=== PATIENT | female | born 1945 | race Caucasian/White ===

== ENCOUNTER → 2017-09-09 | Outpatient (CLI) | payer MEDICARE ==
[~2017-09-09] MED LIST: ALBUTEROL2.5 MG/3 M NEB; ASPIR 8181 MG PO; CATAPRES0.1 MG PO; CLONIDINE HCL0.1 MG PO; COZAAR25 MG PO; DOXYCYCLINE HY100 MG PO; HYDROCODONE PO; IPRATROPIU0.2 MG/1 M NEB; LISINOPRIL10 MG PO; LOPRESSOR25 MG PO; NORVASC5 MG PO; PRAVASTATIN SOD20 MG PO; PREDNISONE20 MG PO; PRINIVIL20 MG PO; SYMBICORT 16010.2 GM INH; TYLENOL WITH C1 EACH PO; [UNRECOGNIZED DRUG - CODE] TP
[2017-09-10 09:09] LABS: ABG HCO3 28 mmol/L (23-28); ABG PCO2 43 mmHg (41-51); ABG PO2 61 mmHg (80-105)
--- NOTE | 2017-09-11 14:11 | Diagnostic Imaging Report ---
TECHNIQUE: Magnetic resonance imaging of the RIGHT HIP was performed WITHOUT injected contrast. HISTORY: Right hip pain, evaluate for osteonecrosis COMPARISON: None available. 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 No collapse. Bone marrow edema extending into the intertrochanteric region. Femoroacetabular Joint: Joint effusion. Acetabular labrum: Fraying of the anterior and superior labrum without detachment. Articular Cartilage: Diffuse partial thickness cartilage loss. Muscle and tendons: The visualized tendons appear intact. Soft tissues: Otherwise unremarkable. 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 Mild degenerative arthrosis of the hip. Joint effusion. Signed by: Dr. Benjamin German M.D. on 09/11/2017 2:08 PM
--- NOTE | 2017-09-13 23:38 | Pulmonary Function Test ---
DATE OF STUDY: PULMONARY FUNCTION REPORT Patient of [facility], Dr. Ruffin, Dr. Damon. INDICATIONS: Very severe obstructive pulmonary disease. Forced vital capacity 0.67 L, 20% of predicted. FEV1 0.33 L, 13%. FEV1/FVC ratio of 50%. FEF 25-75 9% consistent with very severe obstructive pulmonary pattern. There is significant improvement following inhalation of bronchodilators, 25% FVC to 0.83 L and 15% FEV1 to 0.39 L. Lung volumes are reduced. Total lung capacity 4.86 L, 20% of predicted. Total lung capacity is increased to 7.66 L, 137% of predicted. These findings are consistent with very severe obstructive pulmonary disease with significant improvement following inhalation of bronchodilators. Hyperinflation is noted and significantly decreased diffusion capacity. Patient increased surgical risk. Arterial blood gases revealed pH 7.4, pCO2 43, PaO2 61. Normal acid-base status. Increased AA gradient. Job#: [id number]
== END ==
LOC: MRI 08:26
PROVIDERS: ATTEND Specialist
DX: M87.151 Osteonecrosis due to drugs, right femur (principal)
CPT/HCPCS: 36415; 82805; 94060; 94727; 94729

== ENCOUNTER 2017-10-13 08:50 | Inpatient (IN) | payer MEDICARE ==
[2017-10-12 14:03] LABS: BASOPHILS # (AUTO) 0.1 (0.0-0.1); BASOPHILS % 0.8 % (0.0-1.0); EOSINOPHILS # (AUTO) 0.1 (0.0-0.4); EOSINOPHILS % 1.6 % (0.0-6.0); HEMATOCRIT 38.1 % (34.2-44.1); HEMOGLOBIN 12.4 g/dL (12.0-16.0); LYMPHOCYTES # (AUTO) 1.4 (1.0-3.2); LYMPHOCYTES % 19.4 % (18.0-39.1); MEAN CORPUSCULAR HEMOGLOBIN 30.2 pg (28-32); MEAN CORPUSCULAR HGB CONC 32.5 g/dL (31-35); MEAN CORPUSCULAR VOLUME 92.9 fL (81-99); MONOCYTES # (AUTO) 0.4 (0.2-0.8); MONOCYTES % 4.9 % (4.4-11.3); NEUTROPHILS # (AUTO) 5.4 (2.1-6.9); NEUTROPHILS % 72.8 % (38.7-80.0); PLATELET COUNT 283 x10e3/uL (140-360); RED CELL DISTRIBUTION WIDTH 15.7 % (11.7-14.4)
[~2017-10-13] VITALS: Ht 170.2 cm; Wt 70.4 kg
[~2017-10-13 08:50] MED LIST changes: +AMLODIPINE BESYL5 MG PO; +CEFAZOLIN SOD 2 GM/D5W 50ML 50 ML IV ONE; +CELECOXIB 200 MG CAP ONE; +DEXAMETHASONE SOD PHOS 10 MG/1 ML VIAL ONE; +GABAPENTIN 300 MG CAP ONE; +LOSARTAN POTASS25 MG PO
--- OUTSIDE RECORDS SUMMARY | 2017-10-13 08:53 | XMS REPORT | Clinical Summary ---
Author Author [facility] Address Unknown Phone Unavailable Care Team Providers Care Executive Director Name Role Phone Cam Crenshaw MD PCP Allergies Active Allergy Reactions Severity Noted Date Comments Sulfamethoxazole-Trimetho Swelling High 09/13/2014 prim Current Medications Prescription Sig. Disp. Refills Start End Date Status Date pravastatin (PRAVACHOL) Take 20 mg by mouth Active 20 MG tablet nightly. hydroCHLOROthiazide Take 12.5 mg by mouth Active (HYDRODIURIL) 12.5 MG nightly. tablet aspirin (ECOTRIN) 81 MG Take 81 mg by mouth Active enteric coated tablet daily. guaiFENesin (MUCINEX) 600 Use twice a day per 09/05/19 Active mg tablet extended package instructions as 17 release 12hr needed. Is over the counter fluticasone-vilanterol Inhale 1 inhalations once 28 each 1 09/05/19 Active (BREO ELLIPTA) 200-25 daily. 17 mcg/dose blister with device powder for inhalation Active Problems Problem Noted Date COPD exacerbation 09/05/2016 Essential hypertension 09/05/2016 Acute respiratory distress 08/30/2016 Encounters Date Type Specialty Care Team Description 10/29/2016 Emergency Emergency Medicine Edward Cordon, COPD exacerbation - DO (Primary Dx) 10/30/2016 after 10/12/2016 Social History Tobacco Use Types Packs/Day Years Used Date Former Smoker Alcohol Use Drinks/Week oz/Week Comments No Sex Assigned at Date Recorded Not on file Last Filed Vital Signs Vital Sign Reading Time Taken Blood Pressure 139/85 10/30/2016 2:45 AM CDT Pulse 74 10/30/2016 2:45 AM CDT Temperature 36.3 C (97.4 F) 10/29/2016 9:48 PM CDT Respiratory Rate 18 10/30/2016 2:45 AM CDT Oxygen Saturation 94% 10/30/2016 2:45 AM CDT Inhaled Oxygen - - Concentration Weight - - Height 171.5 cm (5' 7.5") 10/29/2016 9:48 PM CDT Body Mass Index - - Plan of Treatment Health Maintenance Due Date Last Done Comments COLONOSCOPY 1997 MAMMOGRAM 1997 ZOSTER VACCINE 2007 PNEUMOCOCCAL 2012 POLYSACCHARIDE VACCINE AGE 65 AND OVER PNEUMOCOCCAL-13 2012 INFLUENZA VACCINE 02/17/2017 Results * ECG ED Preliminary Interpretation - NOT AN ORDER (10/30/2016 3:10 AM) Narrative Edward Cordon DO 10/30/20163:10 AM ECG ED Preliminary Interpretation - Not an Order Performed by: EDWARD CORDON Authorized by: EDWARD CORDON ECG reviewed by ED Physician in the absence of a tanbark peeler: yes Previous ECG: Previous ECG:Unavailable Interpretation: Interpretation: normal Rate: ECG rate:99 ECG rate assessment: normal Rhythm: Rhythm: sinus rhythm Ectopy: Ectopy: none QRS: QRS axis:Normal QRS intervals:Normal Conduction: Conduction: normal ST segments: ST segments:Normal T waves: T waves: normal * XR Chest 1 Vw Portable (10/30/2016 2:14 AM) Specimen Performing Laboratory [facility] [address] [place] [address] Narrative EXAMINATION: XR CHEST 1 VW PORTABLE CLINICAL HISTORY: SHORTNESS OF BREATH COMPARISON:08/30/2016. IMPRESSION: The lungs are clear. No pleural effusion or pneumothorax. The cardiomediastinal silhouette is stable. Thoracic aorta with atherosclerotic calcifications and tortuosity. Stable deformity of the left humeral head. No acute osseous abnormalities. [facility]-[id number] Procedure Note Interface, Radiology Results Incoming - 10/30/2016 2:21 AM CDT EXAMINATION: XR CHEST 1 VW PORTABLE CLINICAL HISTORY: SHORTNESS OF BREATH COMPARISON: 08/30/2016. IMPRESSION: The lungs are clear. No pleural effusion or pneumothorax. The cardiomediastinal silhouette is stable. Thoracic aorta with atherosclerotic calcifications and tortuosity. Stable deformity of the left humeral head. No acute osseous abnormalities. [facility]-[id number] * Estimated GFR (10/30/2016 12:15 AM) Component Value Ref Range GFR Non Af Amer 41 (A) mL/min/1.73 m2 GFR Af Amer 49 (A) mL/min/1.73 m2 Comment: Chronic kidney disease: <60 mL/min/1.73m2 Kidney failure: <15 mL/min/1.73m2 The estimated GFR is calculated from the IDMS-traceable Modification of Diet in Renal Disease Equation. The accuracy of the calculation is poor when the creatinine is normal. Calculated values >90 mL/min/1.73m2 are not reported. This equation has not been validated in children (<18 years), women, the elderly (>70 years), or ethnic groups other than Caucasians and Americans. Specimen Performing Laboratory Plasma specimen [facility] DEPARTMENT OF PATHOLOGY AND GENOMIC MEDICINE [address] [place] [id number] * Troponin (10/30/2016 12:15 AM) Component Value Ref Range Troponin <0.30 0.00 - 0.30 ng/mL Comment: 0.30 - 1.49 ng/ml May indicate increased risk of acute coronary syndrome. >=1.5 ng/ml Consistent with acute myocardial infarction. The diagnostic value of a single normal or non-diagnostic result is questionable. Serial samples at 2-6 hour intervals are required to rule out acute myocardial injury. Specimen Performing Laboratory Plasma specimen [facility] DEPARTMENT OF PATHOLOGY AND GENOMIC MEDICINE [address] [place] [address] * Prothrombin time with INR (10/30/2016 12:15 AM) Component Value Ref Range Prothrombin time 12.7 12.0 - 15.0 sec INR 1.0 Comment: The International Normalized Ratio (INR) is a therapeutic monitoring tool for patients who are stable on oral anticoagulant therapy. An INR of 2.0-3.0 is suggested for deep vein thrombosis/pulmonary embolism. Specimen Performing Laboratory Blood [facility] DEPARTMENT OF PATHOLOGY AND GENOMIC MEDICINE [address] [place] [address] * CBC with platelet and differential (10/30/2016 12:15 AM) Component Value Ref Range WBC 10.22 4.50 - 11.00 k/uL RBC 4.76 4.20 - 5.50 m/uL HGB 14.2 12.0 - 16.0 g/dL HCT 43.3 37.0 - 47.0 % MCV 91.0 82.0 - 100.0 fL MCH 29.8 27.0 - 34.0 pg MCHC 32.8 31.0 - 37.0 g/dL RDW - SD 43.6 37.0 - 55.0 fL MPV 9.9 8.8 - 13.2 fL Platelet count 294 150 - 400 k/uL Nucleated RBC 0.00 /100 WBC Neutrophils 78.6 (H) 39.0 - 69.0 % Lymphocytes 14.1 (L) 25.0 - 45.0 % Monocytes 5.6 0.0 - 10.0 % Eosinophils 0.7 0.0 - 5.0 % Basophils 0.7 0.0 - 1.0 % Immature granulocytes 0.3Comment: "Immature granulocytes" 0.0 - 1.0 % (promyelocytes, myelocytes, metamyelocytes) Specimen Performing Laboratory Blood [facility] DEPARTMENT OF PATHOLOGY AND GENOMIC MEDICINE [address] [place] [address] * B natriuretic peptide (10/30/2016 12:15 AM) Component Value Ref Range BNP 52 0 - 100 pg/mL Specimen Performing Laboratory Blood [facility] DEPARTMENT OF PATHOLOGY AND GENOMIC MEDICINE [address] [place] [address] * Creatine kinase, total (CPK) (10/30/2016 12:15 AM) Component Value Ref Range Creatine kinase 109 26 - 192 U/L Specimen Performing Laboratory Plasma specimen [facility] DEPARTMENT OF PATHOLOGY AND GENOMIC MEDICINE [address] [place] [address] * Comprehensive metabolic panel (10/30/2016 12:15 AM) Component Value Ref Range Sodium 139 135 - 148 mEq/L Potassium 3.6 3.5 - 5.0 mEq/L Chloride 99 98 - 112 mEq/L CO2 23 (L) 24 - 31 mEq/L Anion gap 17 (H) 7 - 15 mEq/L Comment: Starting from October , anion gap calculation no longer incorporates potassium. Please note the change. BUN 19 8 - 23 mg/dL Creatinine 1.3 (H) 0.5 - 0.9 mg/dL Glucose 114 (H) 65 - 99 mg/dL Calcium 9.4 8.8 - 10.2 mg/dL Protein 6.8 6.3 - 8.3 g/dL Comment: 4.6-7.0 g/dL 1 week 4.4-7.6 g/dL 7 months-1year 5.1-7.3 g/dL 1-2 years 5.6-7.5 g/dL >3 years 6.0-8.0 g/dL 18-150 6.3-8.3 g/dL Albumin 4.2 3.5 - 5.0 g/dL A/G ratio 1.6 0.7 - 3.8 Alkaline phosphatase 70 35 - 104 U/L AST 29 10 - 35 U/L ALT 34 5 - 50 U/L Total bilirubin 1.1 0.0 - 1.2 mg/dL Specimen Performing Laboratory Plasma specimen [facility] DEPARTMENT OF PATHOLOGY AND GENOMIC MEDICINE [address] [place] [address] * ECG 12 lead (10/29/2016 9:58 PM) Component Value Ref Range Ventricular rate 99 Atrial rate 99 OR interval 162 QRSD interval 90 QT interval 368 QTC interval 472 P axis 1 73 QRS axis 1 84 T wave axis 92 EKG impression Normal sinus rhythm-Normal ECG-In automated comparison with ECG of -AUG-2016 08:34,-Vent. rate has increased BY 39 BPM-T wave inversion less evident in Anterolateral leads- Specimen Performing Laboratory [facility] M[facility] [address] [place] [phone] after 10/12/2016 Insurance Payer Benefit Subscriber ID Type Phone Address Plan / Group MEDICARE MEDICARE xxxxxxxxxx Medicare [place], [place] PART A AND B
--- OUTSIDE RECORDS SUMMARY | 2017-10-13 08:53 | XMS REPORT ---
Author Author [facility] Address Unknown Phone Unavailable Care Team Providers Care Casing Wringer Operator Name Role Phone MARY CLARK Unavailable Unavailable RAUDEL CEDILLO Unavailable Unavailable KARL LAMAS Unavailable Unavailable Problems This patient has no known problems. Allergies, Adverse Reactions, Alerts This patient has no known allergies or adverse reactions. Medications This patient has no known medications. Results Test Description Test Time Test Comments Text Results Atomic Results Result Comments MRI HIP RIGHT WO [place] [address] Patient Name: SAURABH VANCE MR #: [id number] : 1945 Age/Sex: 72/F Req #: [id number] Adm Physician: Ordered by: MARY CLARK MD Report #: [id number] Location: MRI Room/Bed: Procedure: [id number] MRI/MRI HIP RIGHT WO Exam Date: 09/09/17 Exam Time: 0910 REPORT STATUS: Signed TECHNIQUE: Magnetic resonance imaging of the RIGHT HIP was performed WITHOUT injected contrast. HISTORY: Right hip pain, evaluate for osteonecrosis COMPARISON: None available. 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 No collapse. Bone marrow edema extending into the intertrochanteric region. Femoroacetabular Joint: Joint effusion. Acetabular labrum: Fraying of the anterior and superior labrum without detachment. Articular Cartilage: Diffuse partial thickness cartilage loss. Muscle and tendons: The visualized tendons appear intact. Soft tissues: Otherwise unremarkable. 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 Mild degenerative arthrosis of the hip. Joint effusion. Signed by: Dr. Leisa Campo M.D. on 09/11/2017 2:08 PM Dictated By: LEISA CAMPO MD 07 Transcribed By: KLAUDIA on 09/11/171407 COPY TO: MARY CLARK MD CHEST SINGLE (PORTABLE) [place] [address] Patient Name: SAURABH VANCE MR #: [id number] : 1945 Age/Sex: 71/F Req #: [id number] Adm Physician: Ordered by: RAUDEL CEDILLO MD Report #: [id number] Location: ER Room/Bed: Procedure: [id number] DX/CHEST SINGLE (PORTABLE) Exam Date: 05/11/17 Exam Time: 0605 REPORT STATUS: Signed EXAMINATION: CHEST SINGLE (PORTABLE) INDICATION: Shortness of breath, COPD COMPARISON: None FINDINGS: TUBES and LINES: None. LUNGS: Lungs are well inflated. Lungs are clear. There is no evidence of pneumonia or pulmonary edema. PLEURA: No pleural effusion or pneumothorax. HEART AND MEDIASTINUM: The cardiomediastinal silhouette is unremarkable. There are atherosclerotic calcifications within the aorta. BONES AND SOFT TISSUES: No acute osseous lesion. Chronic deformity of the left humeral head with advanced degenerative changes of the left glenohumeral joint. Soft tissues are unremarkable. UPPER ABDOMEN: No free air under the diaphragm. IMPRESSION: No acute thoracic abnormality. Signed by: Dr. Lennox Brian M.D. on 05/11/2017 6:39 AM Dictated By: LENNOX LIRIANO MD 8 COPY TO: RAUDEL CEDILLO MD CT BRAIN WO [place] [address] Patient Name: SAURABH VANCE MR #: [id number] : 1945 Age/Sex: 71/F Req #: [id number] Adm Physician: Ordered by: KAREN BRENNER MD Report # : [id number] Location: ER Room/Bed: Procedure: [id number] CT/CT BRAIN WO Exam Date: 03/24/17 Exam Time: 1918 REPORT STATUS: Signed EXAMINATION: Head CT without contrast. HISTORY:Follow-up for possible subarachnoid hemorrhage. COMPARISON: CT brain from 03/24/2017. TECHNIQUE: Multidetector axial images were obtained from the foramen magnum to the vertex without contrast. The images were reconstructed using brain and bone algorithms. Thin section brain images were reformatted into coronal and sagittal planes. Intravenous contrast: None IMAGE QUALITY: Acceptable. FINDINGS: Skull/ scalp: No abnormality. Parenchyma: Unchanged nonspecific bilateral frontoparietal confluent periventricular and patchy subcortical white matter hypodensities are likely related to small vessel ischemic changes. No acute hemorrhage, mass or acute major vascular territorial infarct. Arteries: Atherosclerotic calcification in bilateral carotid siphon. Dural sinuses: No abnormal density suggestive of thrombosis. Ventricles: Moderate ventricular dilatation is somewhat disproportionate to the amount of volume loss may represent normal pressure hydrocephalus in appropriate clinical setting. Extra-axial spaces: The left superior frontal sulcus possible subarachnoid hemorrhage that was seen in prior study is not visualized in current study, represents an artifact. Unchanged small right para sagittal, frontal extra-axial cystic lesion with regional mass effect represents an arachnoid cyst. Brain volume: Normal for age. Craniocervical junction: No mass, Chiari malformation, or basilar invagination. Sella: Partial empty sella Paranasal/mastoid sinuses: Imaged portions unremarkable. IMPRESSION: No acute intracranial abnormality, particularly no acute hemorrhage, mass or acute major vascular territorial infarct. Left superior frontal sulcus possible subarachnoid hemorrhage that was seen in prior study, not visualized in current study represents an artifact. Moderate supratentorial white matter microvascular ischemic changes. Signed by: Dr. Jacqueline Juarez M.D. on 03/24/2017 8:52 PM Dictated By: JACQUELINE JUAREZ MD 51 Transcribed By: KLAUDIA on 03/24/172051 COPY TO: KAREN BRENNER MD HAND 3+ VIEWS LEFT [place] [address] Patient Name: SAURABH VANCE MR #: [id number] : 1945 Age/Sex: 71/F Req #: [id number] Adm Physician: Ordered by: KARL LAMAS MD Report #: [id number] Location: ER Room/Bed: Procedure: [id number] DX/HAND 3+ VIEWS LEFT Exam Date: 03/24/17 Exam Time: 1819 REPORT STATUS: Signed PROCEDURE: X-RAY LEFT HAND, THREE OR MORE VIEWS COMPARISON: None. INDICATIONS: FALL, LEFT MIDDLE FINGER PAIN, CUT FINGER FINDINGS: The bones are osteopenic. No acute, displaced fracture or dislocation. Joint spaces are relatively well-maintained. Soft tissue swelling of the third digit without gross laceration or radiopaque foreign body. CONCLUSION: No acute osseous abnormality. Dictated by: Mary Biggs M.D. on 03/24/2017 at 18:45 Electronically approved by: Mary Biggs M.D. on 03/24/2017 at 18:45 Dictated By: MARY BIGGS MD 44 Transcribed By: GIANNI on 03/24/171844 COPY TO: KARL LAMAS MD KNEE 1-2 VIEWS BILATERAL [place] [address] Patient Name: SAURABH VANCE MR #: [id number] : 1945 Age/Sex: 71/F Req #: [id number] Adm Physician: Ordered by: KARL LAMAS MD Report #: [id number] Location: ER Room/Bed: Procedure: [id number] DX/KNEE 1-2 VIEWS BILATERAL Exam Date: 03/24/17 Exam Time: 1819 REPORT STATUS: Signed PROCEDURE: KNEE 1-2 VIEWS BILATERAL COMPARISON: None. INDICATIONS: FALL, BILATERAL KNEE PAIN FINDINGS: The bones are osteopenic. No acute, displaced fracture or dislocation. No joint effusion. Mild symmetric tricompartmental degenerative joint disease with meniscal calcifications. CONCLUSION: No acute osseous abnormalities. Mild symmetric tricompartmental degenerative joint disease of the knees. Dictated by: Mary Biggs M.D. on 03/24/2017 at 18:46 Electronically approved by: Mary Biggs M.D. on 03/24/2017 at 18:46 Dictated By: AMRY BIGGS MD 45 Transcribed By: GIANNI on 03/24/171845 COPY TO: KARL LAMAS MD CHEST SINGLE (PORTABLE) [place] [address] Patient Name: SAURABH VANCE MR #: [id number] : 1945 Age/Sex: 71/F Req #: [id number] Adm Physician: Ordered by: KARL LAMAS MD Report #: [id number] Location: ER Room/Bed: Procedure: [id number] DX/CHEST SINGLE (PORTABLE) Exam Date: 03/24/17 Exam Time: 1819 REPORT STATUS: Signed PROCEDURE: CHEST SINGLE (PORTABLE) COMPARISON: 11/08/2016. INDICATIONS: FALL YESTERDAY FINDINGS: Lungs are well-inflated. Biapical pleural-parenchymal scar, unchanged. No focal airspace consolidation, pleural effusion, or pneumothorax. Stable cardiomediastinal contour with atherosclerotic calcification of the thoracic aorta. Posttraumatic deformity of the left humeral head and left humeral mid shaft. No acute osseous abnormalities. CONCLUSION: No acute cardiopulmonary abnormality. Dictated by: Mary Biggs M.D. on 03/24/2017 at 18:49 Electronically approved by: Mray Biggs M.D. on 03/24/2017 at 18:49 Dictated By : MARY BIGGS MD 48 Transcribed By: GIANNI on 03/24/171848 COPY TO: KARL LAMAS MD HUMERUS LEFT 2+VIEWS [place] [address] Patient Name: SAURABH VANCE MR #: [id number] : 1945 Age/Sex: 71/F Req #: [id number] Adm Physician: Ordered by: KARL LAMAS MD Report #: [id number] Location: Room/Bed: Procedure: [id number] DX/HUMERUS LEFT 2+VIEWS Exam Date: 03/24/17 Exam Time: 1819 REPORT STATUS: Signed PROCEDURE: X-RAY LEFT HUMERUS, TWO OR MORE VIEWS COMPARISON: Chest radiograph 11/08/2014. INDICATIONS: FALL, LEFT ARM PAIN YESTERDAY FINDINGS: Post traumatic deformity of the left humeral head is unchanged relative to comparison chest radiograph 11/08/2014. Healed fracture deformity of the midshaft of the left humerus is also noted. No acute, displaced fracture. Soft tissues are unremarkable. Partially visualized left hemithorax is well aerated. CONCLUSION: No acute osseous abnormality. Posttraumatic deformities of the left humeral head and left humeral diaphysis. Dictated by: Mary Biggs M.D. on 03/24/2017 at 18:51 Electronically approved by: Mary Biggs M.D. on 03/24/2017 at 18:51 Dictated By: MARY BIGGS MD 50 Transcribed By: GIANNI on 03/24/171850 COPY TO: KARL LAMAS MD CT BRAIN WO [address] [address] Patient Name: SAURABH VANCE MR #: [id number] : 1945 Age/Sex: 71/F Req #: [id number] Adm Physician: Ordered by: KARL LAMAS MD Report #: [id number] Location: ER Room/Bed: Procedure: [id number] CT/CT BRAIN WO Exam Date: 03/24/17 Exam Time: 1820 REPORT STATUS: Signed Examination: CT head without contrast Clinical Indication: Fall. Head injury. Technique: Transaxial noncontrast images from the skull base through the vertex were obtained. Sagittal and coronal reformatted images were done. Comparison: Head CT dated 07/11/2014. Findings: Scalp: No abnormalities. Bones: Intact. No fractures. No blastic or lytic lesions. Brain sulci: Appropriate for patient's age. Ventricles: The ventricular size is out of proportion with respect to cerebral convexity sulci, concerning for a communicating type of hydrocephalus, such as normal pressure hydrocephalus. Extra-axial space: Motion artifact toward the vertex gives the appearance of hyperdensity in the left superior frontal sulcus. Parenchyma: There are mild confluent areas of low- attenuation within subcortical and periventricular white matter, nonspecific, but could represent microvascular ischemic disease. No masses, hemorrhage, or acute vascular insults. Suprasellar region: No abnormalities. Craniocervical junction: The foramen magnum is patent. No Chiari one malformation. Incidental findings: None. Impression: 1. Probable artifact and less likely small subarachnoid hemorrhage in the left superior frontal sulcus when compared to prior study performed 07/11/2014. Repeat scan is recommended, if there is clinical concern. 2. Unchanged findings concerning for normal pressure hydrocephalus. 3. Unchanged mild chronic microvascular ischemic change. 4. Mild chronic microvascular ischemic change. Signed by: Dr. Rhoda Branham M.D. on 03/24/2017 7:05 PM Dictated By: RHODA DURAN MD 1904 Transcribed By: KLAUDIA on 1904 COPY TO: KARL LAMAS MD CT CERVICAL SPINE WO [place] [address] Patient Name: SAURABH VANCE MR #: [id number] : 1945 Age/Sex: 71/F Req #: [id number] Adm Physician: Ordered by: KARL LAMAS MD Report #: [id number] Location: ER Room/Bed: Procedure: [id number] CT/CT CERVICAL SPINE WO Exam Date: 03/24/17 Exam Time: 1819 REPORT STATUS: Signed Examination: CT CERVICAL SPINE WITHOUT CONTRAST HISTORY:Neck pain.Fall. COMPARISON:None. TECHNIQUE: Multidetector helical axial images were obtained without contrast from the foramen magnum to T1. Coronal and sagittal reformatted images were done. Bone and soft tissue windows were evaluated. FINDINGS: Alignment:Normal alignment and lordosis. Vertebrae: Normal height and density. No acute fracture, infection or neoplasm. Disc space heights: Normal height. Caliber of spinal canal: Developmentally normal. Posterior fossa and craniocervical junction: Foramen magnum patent. No Chiari 1 malformation. Soft tissues: Atherosclerotic calcification of the bilateral internal carotid arteries. Degenerative changes: Diffuse disc bulges at C3-C4, C4-C5 and C5-C6 without canal stenosis. MIld bilateral neural foraminal narrowing at C3-C4 and C4-C5 due to uncovertebral arthropathy. Moderate bilateral neural foraminal narrowing at C5-C6 due to uncovertebral arthropathy. Remaining cervical levels demonstrate no disc bulge/ herniation or foraminal or canal stenosis. IMPRESSION: 1. No acute abnormalities. 2. Mild cervical spondylosis. Signed by: Dr. Rhoda Branham M.D. on 03/24/2017 7:10 PM Dictated By: RHODA BRANHAM MD 09 Transcribed By: KLAUDIA on 03/24/171909 COPY TO: KARL LAMAS MD
[2017-10-13] MEDS ORDERED: MUPIROCIN 2% OINT 22 GM TUBE ONE (09:37)
[2017-10-13] MEDS ORDERED: BACITRACIN 50,000 UNIT VIAL ONE (09:38)
[2017-10-13] MEDS ORDERED: TRANEXAMIC ACID 1,000 MG/10 ML ML ONE (09:38)
[2017-10-13] MEDS ORDERED: ROPIVACAINE 246.25 MG, EPINEPHRINE HCL 1:1000 0.5 MG, CLONIDINE HCL 0.08 MG, KETOROLAC ... INJ ONE ×5 (11:30)
[2017-10-13] MEDS ORDERED: MEPERIDINE HCL INJ 50 MG/ML INJ ONE (12:00)
[2017-10-13] MEDS ORDERED: DOCUSATE SODIUM 100 MG CAP PO PRN (13:45)
[2017-10-13] MEDS ORDERED: ZOLPIDEM TARTRATE 5 MG TAB PO PRN (13:45)
[2017-10-13] MEDS ORDERED: ACETAMINOPHEN 650 MG SUPP PR PRN (13:45)
[2017-10-13] MEDS ORDERED: DIPHENHYDRAMINE HCL INJ 50 MG/ML VIAL IM/IV PRN (13:45)
[2017-10-13] MEDS ORDERED: ONDANSETRON HCL INJ 2 MG/ML VIAL IV PRN (13:45)
[2017-10-13] MEDS ORDERED: PROMETHAZINE HCL (IM) 25 MG/ML VIAL INJ PRN (13:45)
[2017-10-13] MEDS ORDERED: CEFAZOLIN SOD 1 GM/NS 50ML 50 ML IV SCH (14:00)
--- NOTE | 2017-10-13 14:18 | Diagnostic Imaging Report ---
PROCEDURE:HIP RIGHT ONE VW (+/- PELVIS) COMPARISON:None. INDICATIONS:S/P RT. TOTAL HIP FINDINGS: See conclusion. CONCLUSION: 1. Total right hip arthroplasty intact and in anatomic alignment. 2. Expected postsurgical changes including subcutaneous emphysema, soft tissue swelling and [place]. 3. Intact skeleton. Dictated by: William Simon M.D. on 10/13/2017 at 14:18 Electronically approved by: William Simon M.D. on 10/13/2017 at 14:18
--- NOTE | 2017-10-13 14:23 | Diagnostic Imaging Report ---
PROCEDURE:PELVIS AP 1-2 VIEWS TECHNIQUE:AP pelvis INDICATION:Right hip arthroplasty COMPARISON:None. FINDINGS: Bilateral total hip arthroplasty. Expected postsurgical changes over the right hemipelvis. Regional skeleton is intact. Regional atherosclerosis. CONCLUSION: 1. Bilateral total hip arthroplasty without acute abnormality. 2. Expected acute postsurgical changes at the right hip. Dictated by: William Simon M.D. on 10/13/2017 at 14:21 Electronically approved by: William Simon M.D. on 10/13/2017 at 14:21
--- OUTSIDE RECORDS SUMMARY | 2017-10-13 16:52 | XMS REPORT | Clinical Summary ---
Author Author [facility] Organization [facility] Address Unknown Phone Unavailable Care Team Providers Care Warp Bleaching Vat Tender Name Role Phone Cam Crenshaw MD PCP [...] ED Physician in the absence of a social and political studies professor: yes Previous ECG: Previous ECG:Unavailable Interpretation: Interpretation: normal Rate: ECG rate:99 ECG rate assessment: normal Rhythm: Rhythm: sinus rhythm Ectopy: Ectopy: none QRS: QRS axis:Normal QRS intervals:Normal Conduction: Conduction: normal ST segments: ST segments:Normal T waves: T waves: normal * XR Chest 1 Vw Portable (10/30/2016 2:14 AM) Specimen Performing Laboratory [facility] [address] [place] [address] Narrative EXAMINATION: XR CHEST 1 VW PORTABLE CLINICAL HISTORY: SHORTNESS OF BREATH COMPARISON:08/30/2016. IMPRESSION: The lungs are clear. No pleural effusion or pneumothorax. The cardiomediastinal silhouette is stable. Thoracic aorta with atherosclerotic calcifications and tortuosity. Stable deformity of the left humeral head. No acute osseous abnormalities. [id number] Procedure Note Interface, Radiology Results Incoming - 10/30/2016 2:21 AM CDT EXAMINATION: XR CHEST 1 VW PORTABLE CLINICAL HISTORY: SHORTNESS OF BREATH COMPARISON: 08/30/2016. IMPRESSION: The lungs are clear. No pleural effusion or pneumothorax. The cardiomediastinal silhouette is stable. Thoracic aorta with atherosclerotic calcifications and tortuosity. Stable deformity of the left humeral head. No acute osseous abnormalities. [facility]-[id number] * Estimated GFR (10/30/2016 12:15 AM) Component [...] and Americans. Specimen Performing Laboratory Plasma specimen [facility] DEPARTMENT OF PATHOLOGY AND GENOMIC MEDICINE [address] [place] [address] [id number] * Troponin (10/30/2016 12:15 AM) Component Value [...] myocardial injury. Specimen Performing Laboratory Plasma specimen [facility] DEPARTMENT OF PATHOLOGY AND GENOMIC MEDICINE [address] [place] [address] 14036 * Prothrombin time with INR (10/30/2016 12:15 AM) Component Value Ref Range Prothrombin time 12.7 12.0 - 15.0 sec INR 1.0 Comment: The International Normalized Ratio (INR) is a therapeutic monitoring tool for patients who are stable on oral anticoagulant therapy. An INR of 2.0-3.0 is suggested for deep vein thrombosis/pulmonary embolism. Specimen Performing Laboratory Blood [facility] DEPARTMENT OF PATHOLOGY AND GENOMIC MEDICINE [address] [place] [address] 60298 * CBC with platelet and differential (10/30/2016 [...] (promyelocytes, myelocytes, metamyelocytes) Specimen Performing Laboratory Blood [facility] DEPARTMENT OF PATHOLOGY AND GENOMIC MEDICINE [address] [place] [address] [phone] * B natriuretic peptide (10/30/2016 12:15 AM) Component Value Ref Range BNP 52 0 - 100 pg/mL Specimen Performing Laboratory Blood [facility] DEPARTMENT OF PATHOLOGY AND GENOMIC MEDICINE [address] [place] [address] [id number] * Creatine kinase, total (CPK) (10/30/2016 12:15 AM) Component Value Ref Range Creatine kinase 109 26 - 192 U/L Specimen Performing Laboratory Plasma specimen [facility] DEPARTMENT OF PATHOLOGY AND GENOMIC MEDICINE [address] [place] [address] 10618 * Comprehensive metabolic panel (10/30/2016 12:15 AM) [...] 1.2 mg/dL Specimen Performing Laboratory Plasma specimen [facility] DEPARTMENT OF PATHOLOGY AND GENOMIC MEDICINE [address] [place] [address] 34445 * ECG 12 lead (10/29/2016 9:58 PM) Component Value Ref Range Ventricular rate 99 Atrial rate 99 TN interval 162 QRSD interval 90 QT interval 368 QTC interval 472 P axis 1 73 QRS axis 1 84 T wave axis 92 EKG impression Normal sinus rhythm-Normal ECG-In automated comparison with ECG of -AUG-2016 08:34,-Vent. rate has increased BY 39 BPM-T wave inversion less evident in Anterolateral leads- Specimen Performing Laboratory [facility] [address] [place] [address] after 10/12/2016 Insurance Payer Benefit Subscriber ID Type Phone Address Plan / Group MEDICARE MEDICARE xxxxxxxxxx Medicare [place], [place] PART A AND B
[2017-10-13] MEDS ORDERED: CELECOXIB 100 MG CAP PO SCH (17:00)
[2017-10-13] MEDS: ASPIRIN 325 MG TAB PO SCH (17:11)
[2017-10-13] MEDS: ACETAMINOPHEN 1000 MG/100 ML IV SCH (17:11)
[2017-10-13] MEDS: CEFAZOLIN SOD 1 GM VIAL IV SCH (17:11)
[2017-10-13] MEDS: SODIUM CHLORIDE 0.9% 1000ML 1,000 ML IV SCH (17:13)
[2017-10-13 17:24] VITALS: BP 120/65
[2017-10-13] MEDS: HYDROCODONE/APAP 7.5MG-325MG 1 EA TAB PO PRN ×2 (17:48→18:18)
[2017-10-13] MEDS: KETOROLAC TROMETHAMINE 30 MG/ML VIAL IV PRN (17:48)
[2017-10-13] MEDS ORDERED: FENTANYL CITRATE/PF 100MCG/2 ML INJ ONE (18:40)
[2017-10-13] MEDS ORDERED: MIDAZOLAM HCL 2 MG/2 ML VIAL ONE (18:40)
[2017-10-13] MEDS ORDERED: PROPOFOL IV EMULSION 10 MG/ML 20 ML VIAL ONE (18:50)
--- NOTE | 2017-10-13 18:58 | Operative Report ---
DATE OF PROCEDURE: October 13, 2017 DIETARY TECH: Billy Marks PA-C The patient was brought to the operating room for induction of anesthesia. Throughout this case, my PA's assistance was necessary for retraction of soft tissue and positioning of the extremity. This allows for efficient and technically successful execution of the operation and is considered medically necessary. PREOPERATIVE DIAGNOSIS: Avascular necrosis right hip. POSTOPERATIVE DIAGNOSIS: Avascular necrosis right hip. PROCEDURE: Right total hip arthroplasty. INDICATIONS: The patient is a 72-year-old lady with severe right hip pain. Clinic exam and MRI findings are consistent with avascular necrosis. The findings and options have been discussed. Particular concerns about her medical pulmonary disease have been expressed. The patient states she cannot go on with this level of hip pain. She accepts the potential perioperative risks and wishes to proceed with the procedure. DESCRIPTION OF PROCEDURE: The patient was brought to the operating room after receiving tranexamic acid and prophylactic antibiotics in the holding area. She was given a spinal anesthetic and then positioned in the left lateral decubitus position. Her right hip was prepped and draped in a sterile manner. A preoperative time out was performed. A limited incision posterior approach was made to the right hip. Hemostasis was obtained with electrocautery. A self-retaining Charnley retractor was placed. The posterior capsule was carefully exposed, and further hemostasis was gained with electrocautery. The short external rotators with the exception of the pyriformis were released. A capsulotomy was performed. A large intra-articular effusion was encountered. The hip was dislocated, and an oscillating saw was used to resect the femoral head. Subchondral collapse was noted. Acetabular retractors were placed. The socket was then sequentially reamed up to 51 mm. A [employer] OsseoTi socket was seated into place. Hemispherical bleeding cancellous bone was encountered. The hip was thoroughly irrigated with a shower-tip pulsatile lavage prior to seating the socket. Fixation was augmented with a single 25 mm screw. A highly crosslinked polyethylene liner with a 36 mm inner diameter was then impacted into place. Care was taken to make sure that there was no evidence of soft-tissue interposition. A portion of a 100 mL premixed pericapsular injection was placed around the socket. The socket was packed with a moistly soaked lap sponge, and attention was directed towards the proximal femur. A box-cutting osteotome and taper pin reamer were used to establish entry to the femoral canal. The [employer] Taperloc stems were then impacted and trialed. A size number 13 stem had good canal fill and stability for trial reductions. A standard 36 mm head provided optimal soft-tissue balancing, stability in all range of motion and yazdanism of limb length. The trial implants were removed. The hip was further irrigated with a pulsatile lavage. The remainder of the injection was placed into the soft tissue. The implants were seated, and a standard 36 mm head was placed onto the stem. A final reduction was performed. The posterior capsule was carefully repaired with number 2 Ethibond. The proximal tensor fascia and gluteal fascia were closed with number 2 Ethibond. The skin was closed with subcuticular Vicryl and [place]. A sterile bandage was applied. The patient was returned to the supine position and transported to the recovery room in stable condition. Blood loss was approximately 100 mL, and all needle and sponge counts were correct. Job#: [id number] EV
[2017-10-13 20:00] VITALS: BP 163/78
[2017-10-14] VITALS (9 sets, daily range): BP systolic 135–171; BP diastolic 60–82
[2017-10-14] MEDS: HYDROCODONE/APAP 7.5MG-325MG 1 EA TAB PO PRN ×4 (00:17→20:53)
[2017-10-14] MEDS: KETOROLAC TROMETHAMINE 30 MG/ML VIAL IV PRN ×3 (01:21→18:39)
[2017-10-14] MEDS: SODIUM CHLORIDE 0.9% 1000ML 1,000 ML IV SCH ×2 (01:23→09:19)
[2017-10-14] MEDS: CEFAZOLIN SOD 1 GM VIAL IV SCH ×2 (03:00→09:19)
[2017-10-14] MEDS: ACETAMINOPHEN 1000 MG/100 ML IV SCH ×3 (06:20→11:57)
[2017-10-14 07:10] LABS: HEMATOCRIT 30.1 % (34.2-44.1); HEMOGLOBIN 9.9 g/dL (12.0-16.0)
[2017-10-14] MEDS: ASPIRIN 325 MG TAB PO SCH ×2 (08:46→16:50)
[2017-10-14] MEDS: HYDROCODONE/APAP 5MG-325MG TAB PO PRN ×2 (08:47→15:33)
[2017-10-14] MEDS ORDERED: ASPIRIN325 MG PO (08:52)
[2017-10-14] MEDS ORDERED: AMLODIPINE BESYLATE 5 MG TAB PO SCH (09:00)
[2017-10-14] MEDS ORDERED: LOSARTAN POTASSIUM 100 MG TAB PO SCH (09:00)
--- NOTE | 2017-10-14 09:36 | Consultation ---
DATE OF CONSULTATION: October 14, 2017 REASON FOR CONSULTATION: Medical management. HISTORY OF PRESENT ILLNESS: This is a 72-year-old white woman who underwent a right total hip arthroplasty because of right hip avascular necrosis on October 13, 2017. The surgery was performed successfully by her surgeon, namely Dr. Alon Ruffin. The patient tolerated the procedure well. The patient does have a history of severe COPD as well as hypertension. She denies any chest pain, shortness of breath or cough. The patient's hemoglobin today is 9.9 g/dL. Two days ago, it was 12.4 g/dL. REVIEW OF SYSTEMS GENERAL: Weight has been stable. No fever or chills. HEENT: No headache. No visual changes. CARDIOVASCULAR/RESPIRATORY: No chest pain. Slight shortness of breath at her baseline. No coughing. GI: No nausea, vomiting, diarrhea or constipation. : The patient did have a Reid catheter removed but still has not voided. The patient denies any UTI symptoms. NEUROMUSCULAR: States the pain is well controlled at this time in her right hip. ALLERGIES 1. CORTICOSTEROIDS. 2. AMITRIPTYLINE. 3. CELEBREX. 4. CLARITHROMYCIN. 5. LAMICTAL. 6. LEVOFLOXACIN. 7. NAPROXEN. 8. SULFAMETHOXAZOLE TRIMETHOPRIM. FAMILY HISTORY: Her father had his hip replaced. SOCIAL HISTORY: This woman is single and lives alone. She is retired. The patient was a heavy tobacco smoker but quit in 1997. Denies any alcohol use. SURGICAL HISTORY 1. Left total hip replacement in 2007. 2. Coronary stent placement in 2010. 3. Right renal artery stent placement in 2010. 4. Right total hip replacement yesterday, October 13, 2017. 5. Appendectomy in 02/2017. HOME MEDICATIONS 1. Amlodipine 5 mg a day. 2. Aspirin 81 mg a day. 3. Losartan 50 mg daily. PAST MEDICAL HISTORY 1. Severe COPD. 2. Chronic supplemental oxygen use. 3. Hypertensive heart disease. 4. Coronary artery disease (history of coronary artery stent placement in 2010). 5. Right hip avascular necrosis requiring total hip replacement on October 13, 2017. PHYSICAL EXAMINATION GENERAL: She is awake, alert, and fully oriented. She is very pleasant and cooperative with exam. VITAL SIGNS: Blood pressure 154/66, pulse 60, respiratory rate 18, oxygen saturation 98% on 2 L of oxygen. Temperature 96.3. Height is 5 feet 7 inches, and weight is 155 pounds. Calculated body mass index is 24. INTEGUMENT: Skin is warm and dry. No pallor, jaundice or diaphoresis. HEENT: Anicteric sclerae with moist mucous membranes. NECK: Supple. No evidence of jugular venous distention. CARDIOVASCULAR: Distant heart sounds. Regular rate and rhythm. LUNGS: No rales. No rhonchi. No wheezing. ABDOMEN: Soft. Normal bowel sounds. Nontender. EXTREMITIES: The right hip surgical incision wound is currently dressed. The outer lower legs have no swelling or tenderness. NEUROLOGIC: No gross focal deficits appreciated. DIAGNOSES 1. Status post right total hip arthroplasty because of avascular necrosis. 2. Severe chronic obstructive pulmonary disease. 3. Coronary artery disease (history of coronary stent placement in 2010). 4. Hypertensive heart disease. 5. Postoperative anemia. PLAN 1. Mobilize with physical therapy. 2. Pain control. 3. Continue deep venous thrombosis prophylaxis. 4. Encourage incentive spirometer use every hour while awake. 5. Continue inhaled bronchodilators. 6. Blood pressure control. 7. Stop intravenous fluids. 8. Follow renal function and electrolytes. 9. Follow hemoglobin and hematocrit. I would like to thank Dr. Ruffin and appreciate his consult. I spent 1 hour in the care of this patient. Job#: [id number]
[2017-10-14 09:51] LABS: ALANINE AMINOTRANSFERASE 15 IU/L (0-55); ALBUMIN 2.9 g/dL (3.5-5.0); ALBUMIN/GLOBULIN RATIO 1.3 (0.8-2.0); ALKALINE PHOSPHATASE 58 IU/L (40-150); ANION GAP 10.4 mmol/L (8-16); BLOOD UREA NITROGEN 16 mg/dL (7-26); BUN/CREATININE RATIO 24 (6-25); CALCIUM 8.7 mg/dL (8.4-10.2); CARBON DIOXIDE 25 mmol/L (22-29); CHLORIDE 105 mmol/L (98-107); CREATININE, SERUM 0.67 mg/dL (0.57-1.11); EST GLOMERULAR FILTRATION RATE > 60 ML/MIN (60-); GLUCOSE 119 mg/dL (74-118); POTASSIUM 4.4 mmol/L (3.5-5.1); SODIUM 136 mmol/L (136-145)
[2017-10-14] MEDS ORDERED: ACETAMINOPHEN 1000 MG/100 ML IV PRN (13:45)
[2017-10-15 00:32] VITALS: BP 164/72
[2017-10-15 04:00] VITALS: BP 145/73
[2017-10-15] MEDS: KETOROLAC TROMETHAMINE 30 MG/ML VIAL IV PRN ×2 (04:16→12:38)
[2017-10-15] MEDS: HYDROCODONE/APAP 7.5MG-325MG 1 EA TAB PO PRN ×2 (06:21→13:46)
[2017-10-15 07:15] VITALS: BP 185/78
[2017-10-15 07:17] LABS: BASOPHILS % 0.6 % (0.0-1.0); EOSINOPHILS # (AUTO) 0.2 (0.0-0.4); EOSINOPHILS % 2.4 % (0.0-6.0); HEMATOCRIT 28.1 % (34.2-44.1); HEMOGLOBIN 9.2 g/dL (12.0-16.0); LYMPHOCYTES # (AUTO) 1.3 (1.0-3.2); LYMPHOCYTES % 20.1 % (18.0-39.1); MEAN CORPUSCULAR HEMOGLOBIN 30.4 pg (28-32); MEAN CORPUSCULAR HGB CONC 32.7 g/dL (31-35); MEAN CORPUSCULAR VOLUME 92.7 fL (81-99); MONOCYTES # (AUTO) 0.5 (0.2-0.8); MONOCYTES % 7.8 % (4.4-11.3); NEUTROPHILS # (AUTO) 4.5 (2.1-6.9); NEUTROPHILS % 68.5 % (38.7-80.0); PLATELET COUNT 214 x10e3/uL (140-360); RED BLOOD COUNT 3.03 x10e6/uL (3.6-5.1); RED CELL DISTRIBUTION WIDTH 15.8 % (11.7-14.4)
[2017-10-15 07:45] LABS: ANION GAP 9.8 mmol/L (8-16); BLOOD UREA NITROGEN 17 mg/dL (7-26); BUN/CREATININE RATIO 27 (6-25); CALCIUM 8.6 mg/dL (8.4-10.2); CARBON DIOXIDE 26 mmol/L (22-29); CHLORIDE 106 mmol/L (98-107); CREATININE, SERUM 0.64 mg/dL (0.57-1.11); EST GLOMERULAR FILTRATION RATE > 60 ML/MIN (60-); GLUCOSE 94 mg/dL (74-118); POTASSIUM 3.8 mmol/L (3.5-5.1); SODIUM 138 mmol/L (136-145)
[2017-10-15] MEDS: ASPIRIN 325 MG TAB PO SCH (08:20)
[2017-10-15] MEDS ORDERED: AMLODIPINE BESYLATE 5 MG TAB PO SCH ×2 (09:00→21:00)
[2017-10-15 09:45] VITALS: BP 185/78
[2017-10-15] MEDS ORDERED: NORCO 7.5-3251 EACH PO (10:47)
[2017-10-15 12:19] VITALS: BP 169/79
[2017-10-15] MEDS ORDERED: LOSARTAN POTASSIUM 100 MG TAB PO SCH (21:00)
== END 2017-10-15 13:52 | disposition home or self-care (01) | DRG 470 ==
LOC: OR 08:50 → MED/SURG 16:49
PROVIDERS: ADMIT Specialist; ATTEND Specialist
PROC: 0SR904A Replacement of Right Hip Joint with Ceramic on Polyethylene Synthetic Substitute, Uncemented, Open Approach (ICD-10-PCS; principal; 2017-10-13 11:30)
DX: M87.151 Osteonecrosis due to drugs, right femur (principal); I11.0 Hypertensive heart disease with heart failure; I50.9 Heart failure, unspecified; Z99.81 Dependence on supplemental oxygen; J44.9 Chronic obstructive pulmonary disease, unspecified; I25.10 Atherosclerotic heart disease of native coronary artery without angina pectoris; Z87.891 Personal history of nicotine dependence; Z79.52 Long term (current) use of systemic steroids; D64.9 Anemia, unspecified; Z95.5 Presence of coronary angioplasty implant and graft
CPT/HCPCS: 36415; 72170; 80048; 80053; 85014; 85018; 85025; 86850; 86900; 88305; 88311; 93005; 97139; C1713; J0171; J0690; J1100; J1885; J2175; J2250; J2795; J7030

== ENCOUNTER 2017-10-27 04:02 | Inpatient (IN) | payer MEDICARE ==
[~2017-10-27] VITALS: Ht 170.2 cm; Wt 69.4 kg
[~2017-10-27 04:02] MED LIST changes: +ASPIRIN325 MG PO; -CEFAZOLIN SOD 2 GM/D5W 50ML 50 ML IV ONE; -CELECOXIB 200 MG CAP ONE; -DEXAMETHASONE SOD PHOS 10 MG/1 ML VIAL ONE; -GABAPENTIN 300 MG CAP ONE; +NORCO 7.5-3251 EACH PO
--- OUTSIDE RECORDS SUMMARY | 2017-10-27 04:05 | XMS REPORT | Clinical Summary ---
Author Author [facility] Address Unknown Phone Unavailable Care Team Providers Care Range Scientist Name Role Phone Cam Crenshaw MD PCP [...] exacerbation - DO (Primary Dx) 10/30/2016 after 10/26/2016 Social History Tobacco Use Types Packs/Day Years [...] 65 AND OVER PNEUMOCOCCAL-13 2012 INFLUENZA VACCINE 02/17/2018 Results * ECG ED Preliminary Interpretation - NOT AN ORDER (10/30/2016 3:10 AM) Narrative Edward Crodon DO 10/30/20163:10 AM ECG ED Preliminary Interpretation - Not an Order Performed by: EDWARD CORDON Authorized by: EDWARD CORDON ECG reviewed by ED Physician in the absence of a clinical informaticist: yes Previous ECG: Previous ECG:Unavailable Interpretation: Interpretation: normal Rate: ECG rate:99 ECG rate assessment: normal Rhythm: Rhythm: sinus rhythm Ectopy: Ectopy: none QRS: QRS axis:Normal QRS intervals:Normal Conduction: Conduction: normal ST segments: ST segments:Normal T waves: T waves: normal * XR Chest 1 Vw Portable (10/30/2016 2:14 AM) Specimen Performing Laboratory [facility] [address] [place] [address] Narrative EXAMINATION: XR CHEST 1 VW PORTABLE CLINICAL HISTORY: SHORTNESS OF BREATH COMPARISON:08/30/2016. IMPRESSION: The lungs are clear. No pleural effusion or pneumothorax. The cardiomediastinal silhouette is stable. Thoracic aorta with atherosclerotic calcifications and tortuosity. Stable deformity of the left humeral head. No acute osseous abnormalities. [id number] Procedure Note Interface, Radiology Results Incoming - 10/30/2016 2:21 AM CDT EXAMINATION: XR CHEST 1 VW PORTABLE CLINICAL HISTORY: SHORTNESS OF BREATH COMPARISON: 08/30/2016. IMPRESSION: The lungs are clear. No pleural effusion or pneumothorax. The cardiomediastinal silhouette is stable. Thoracic aorta with atherosclerotic calcifications and tortuosity. Stable deformity of the left humeral head. No acute osseous abnormalities. [id number] * Estimated GFR (10/30/2016 12:15 AM) Component [...] and Americans. Specimen Performing Laboratory Plasma specimen [facility] DEPARTMENT OF PATHOLOGY AND GENOMIC MEDICINE [address] [place] [address] [id number] * Troponin (10/30/2016 12:15 AM) Component Value [...] myocardial injury. Specimen Performing Laboratory Plasma specimen [facility] DEPARTMENT OF PATHOLOGY AND GENOMIC MEDICINE [address] [place] [address] [id number] * Prothrombin time with INR (10/30/2016 12:15 AM) Component Value Ref Range Prothrombin time 12.7 12.0 - 15.0 sec INR 1.0 Comment: The International Normalized Ratio (INR) is a therapeutic monitoring tool for patients who are stable on oral anticoagulant therapy. An INR of 2.0-3.0 is suggested for deep vein thrombosis/pulmonary embolism. Specimen Performing Laboratory Blood [facility] DEPARTMENT OF PATHOLOGY AND GENOMIC MEDICINE [address] [place] [address] 98563 * CBC with platelet and differential (10/30/2016 [...] (promyelocytes, myelocytes, metamyelocytes) Specimen Performing Laboratory Blood [facility] DEPARTMENT OF PATHOLOGY AND GENOMIC MEDICINE [address] [place] [address] 06345 * B natriuretic peptide (10/30/2016 12:15 AM) Component Value Ref Range BNP 52 0 - 100 pg/mL Specimen Performing Laboratory Blood [facility] DEPARTMENT OF PATHOLOGY AND GENOMIC MEDICINE [address] [place] [address] 43501 * Creatine kinase, total (CPK) (10/30/2016 12:15 AM) Component Value Ref Range Creatine kinase 109 26 - 192 U/L Specimen Performing Laboratory Plasma specimen [facility] DEPARTMENT OF PATHOLOGY AND GENOMIC MEDICINE [address] [place] [address] 11242 * Comprehensive metabolic panel (10/30/2016 12:15 AM) [...] 1.2 mg/dL Specimen Performing Laboratory Plasma specimen [facility] DEPARTMENT OF PATHOLOGY AND GENOMIC MEDICINE [address] [place] [address] 43285 * ECG 12 lead (10/29/2016 9:58 PM) Component Value Ref Range Ventricular rate 99 Atrial rate 99 [place] interval 162 QRSD interval 90 QT interval 368 QTC interval 472 P axis 1 73 QRS axis 1 84 T wave axis 92 EKG impression Normal sinus rhythm-Normal ECG-In automated comparison with ECG of -AUG-2016 08:34,-Vent. rate has increased BY 39 BPM-T wave inversion less evident in Anterolateral leads- Specimen Performing Laboratory [facility] [address] [place] [address] 42098 after 10/26/2016 Insurance Payer Benefit Subscriber ID Type Phone Address Plan / Group MEDICARE MEDICARE xxxxxxxxxx Medicare [place], [place] PART A AND B
--- OUTSIDE RECORDS SUMMARY | 2017-10-27 04:05 | XMS REPORT | Clinical Summary ---
Author Author [facility] Address Unknown Phone Unavailable Care Team Providers Care Exhauster Name Role Phone PCP Unavailable Allergies Active Allergy Reactions Severity Noted Date Comments Sulfamethoxazole-Trimetho Swelling High 09/13/2014 prim Current Medications Prescription Sig. Disp. Refills Start End Date Status Date lisinopril-hydrochlorothi Take 1 tablet by mouth 2 Active azide (two) times daily. (PRINZIDE,ZESTORETIC) 20-12.5 mg per tablet cloNIDine HCl (CATAPRES) Take 0.2 mg by mouth 3 Active 0.2 MG tablet (three) times daily. prasugrel (EFFIENT) 5 mg Take 1 tablet (5 mg 5 tablet 3 09/18/19 Active tablet total) by mouth daily. 15 Active Problems Problem Noted Date CAD (coronary artery disease) 09/13/2014 Renal artery stenosis (HCC) 09/13/2014 Family History Medical History Relation Name Comments Cancer Father Cancer Mother Heart disease Mother Kidney disease Mother Relation Name Status Comments Father Mother Social History Tobacco Use Types Packs/Day Years Used Date Former Smoker Smokeless Tobacco: Never Used Alcohol Use Drinks/Week oz/Week Comments No Sex Assigned at Date Recorded Not on file Last Filed Vital Signs Not on file Plan of Treatment Not on file Implants Implanted Type Area Vacuum Pan Tender Device Expiration Model / Identifier Date Serial / Lot Lc SANTIAGO 11/12/2015 [id number] Implanted: Qty: 1 on 09/13/2014 [employer] [id number] / / [id number] Results Not on fileafter 10/26/2016
--- OUTSIDE RECORDS SUMMARY | 2017-10-27 04:06 | XMS REPORT | Continuity of Care Document ---
Author Author [facility] Organization [facility] Address [address] [place] [address] Phone Unavailable Care Team Providers Care Liquor Blender Name Role Phone JEANNIE WILDE MD PCP Insurance Providers Guarantor Saurabh Vance Address [address] [place] [address] Email PTDECLINED Payer Medicare A & B Policy Number [id number] Subscriber's Name Saurabh Vance Relationship 18 Self / Same As Patient Group Number [id number] Group Name RETIRED Effective Date 00 Advance Directives Directive Response Recorded Date/Time Does the patient have an advance directive? Yes 10/13/17 5:56pm If yes, is advance directive on file with [facility]? No 10/13/17 5:56pm If not on file with [facility] will patient provide a copy? Yes 10/13/17 5:56pm Do you have a Directive to Physician? Yes 10/12/17 12:43pm Do you have a Medical Power of [place] Skin Diver? Yes 10/12/17 12:43pm Do you have an out of hospital Do Not Resuscitate Order? Yes 10/12/17 12:43pm Do you have any special needs we should be aware of? USES A WALKER 10/12/17 12:43pm Do you have a support person here with you today? Yes 10/12/17 12:44pm Did patient receive Notice of Privacy Practices? Yes 10/12/17 12:44pm Did patient receive patient rights and responsibilities? Yes 10/12/17 12:44pm Problems Medical Problem Onset Date Status COPD exacerbation Unknown Syncope 07/11/2014 Acute Syncope and collapse 07/11/2014 Acute Medications Current Home Medications Medication Dose Units Route Directions Days Qty Instructions Start Date Amlodipine Besylate 5 Mg Tablet 5 Mg Oral Daily 30 Tab Aspirin 325 Mg Tablet 325 Mg Oral Twice A Day 21 Days 10/14/17 Hydrocodone Bit/Acetaminophen ([place] 7.5-325 Tablet) 1 Each Tablet 1 Ea Oral Every 4 Hours as needed for Pain Losartan Potassium 25 Mg Tablet 50 Mg Oral Daily Past Home Medications Medication Directions Ordered Status Acetaminophen With Codeine (Tylenol With Codeine #3 Tablet) 1 Each Tablet, 300 Mg Oral Every 6 Hours as needed for Pain 07/17/14 Discontinued Amlodipine Besylate (Norvasc) 5 Mg Tab, 5 Mg Oral Daily 07/17/14 Discontinued Aspirin (Aspir 81) 81 Mg Tablet.dr, 81 Mg Oral Daily 07/17/14 Discontinued Clonidine Hcl (Catapres) 0.1 Mg Tablet, 0.1 Mg Oral Three Times A Day Discontinued Clonidine Hcl 0.1 Mg Tablet, 0.1 Mg Oral Twice A Day Discontinued Doxycycline Hyclate 100 Mg Capsule, 100 Mg Oral Twice A Day Discontinued Hydrocodone , 300 Mg Oral Every 4 Hours Discontinued [id number] 1 Ea Patch, 1 Ea Topical Daily 07/17/14 Discontinued Lisinopril (Prinivil) 20 Mg Tablet, 20 Mg Oral Daily 07/17/14 Discontinued Lisinopril 10 Mg Tablet, Unknown Dose Oral Daily Discontinued Metoprolol Tartrate (Lopressor) 25 Mg Tab, 50 Mg Oral Every 12 Hours Discontinued Pravastatin Sodium 20 Mg Tablet, 20 Mg Oral Daily Discontinued Social History Social History Problem Response Recorded Date/Time Onset Date Status Hx Psychiatric Problems No 10/13/2017 5:56pm Not Applicable Not Applicable Hx Eating Disorder No 10/13/2017 5:56pm Not Applicable Not Applicable Hx Substance Use Disorder No 10/13/2017 5:56pm Not Applicable Not Applicable Hx Depression No 10/13/2017 5:56pm Not Applicable Not Applicable Hx Alcohol Use No 10/13/2017 5:56pm Not Applicable Not Applicable Hx Substance Use Treatment No 10/13/2017 5:56pm Not Applicable Not Applicable Hx Physical Abuse No 10/13/2017 5:56pm Not Applicable Not Applicable Hospital Discharge Instructions No hospital discharge instruction information available. Plan of Care Discharge Date 10/15/17 1:52pm Disposition HOME, SELF-CARE Instructions/Education Provided Post Operative Pain Stitches and [place] Care Prescriptions See Medication Section Referrals MARY CLARK MD (Orthopedic) Order Date: 10/22/2017 Entered Date: 10/14/2017 8:51am Address: [address] [place] [address] [address] [place] [address] Additional Instructions/Education F/U WITH PCP IN 1-2 WEEKS REGARDING BLOOD PRESSURE ACTIVITY TOLERATED NO HEAVY LIFTING CHANGE DRESSING TO HIP DAILY THERAPY TO COME TO YOUR HOUSE DAILY Functional Status Query Response Date Recorded FUNCTIONAL STATUS . October 13, 2017 5:02pm Assistive Devices Rolling Walker October 13, 2017 5:24pm Ambulation Ability Minimum Assistance October 13, 2017 5:24pm Toileting Ability Minimum Assistance October 15, 2017 11:04am Allergies, Adverse Reactions, Alerts Allergen Type Severity Reaction Status Last Updated Corticosteroids (Glucocorticoids) Adverse Reaction Intermediate DEPRESSION AND SUICIDAL THOUGHTS Active 05/11/17 Naproxen Allergy Unknown Active 05/11/17 Sulfamethoxazole Allergy Unknown Active 05/11/17 Trimethoprim Allergy Unknown Active 05/11/17 Clarithromycin Allergy Unknown Active 05/11/17 Lamotrigine Allergy Unknown Active 05/11/17 Amitriptyline Allergy Unknown Active 05/11/17 Levofloxacin Allergy Unknown Active 05/11/17 Celecoxib Allergy Unknown Active 05/11/17 Immunizations No immunization information available. Vital Signs Acute Vital Signs Vital Response Date/Time Temperature (Fahrenheit) 96.9 degrees F (97.6 - 99.5) 10/15/2017 12:19pm Pulse Pulse Rate (adult) 68 bpm (60 - 90) 10/15/2017 12:19pm Respiratory Rate 16 bpm (12 - 24) 10/15/2017 12:19pm Blood Pressure 169/79 mm Hg 10/15/2017 12:19pm Height 5 ft 7 in 10/13/2017 5:56pm Weight 155.13 lb 10/14/2017 8:28am Body Mass Index 24.3 kg/m^2 10/14/2017 8:28am Results Laboratory Results Test Name Result Units Flags Reference Collection Date/Time Result Date/ Time Comments Prothrombin Time 12.2 seconds 11.9-14.5 05/11/2017 5:50am 05/11/2017 6: 31am Prothromb Time International Ratio 0.86 05/11/2017 5:50am 2016 6:31am Oral Anticoagulant Therapy INR Values: 1. Low Intensity Therapy 1.5 - 2.0 2. Moderate Intensity Therapy 2.0 - 3.0 3. High Intensity Therapy(1) 2.5 - 3.5 4. High Intensity Therapy(2) 3.0 - 4.0 5. Panic Value INR > 5.0 Activated Partial Thromboplast Time 24.5 seconds 23.8-35.5 05/11/2017 5: 50am 05/11/2017 6:31am Urine Color YELLOW YELLOW 05/11/2017 11:04am 05/11/2017 11:40am Urine Clarity SL CLOUDY CLEAR 05/11/2017 11:04am 05/11/2017 11:40am Urine Specific [place] 1.020 1.010-1.025 05/11/2017 11:04am 2016 11:40am Urine pH 5 5 - 7 05/11/2017 11:04am 05/11/2017 11:40am Urine Leukocyte Esterase 2+ H NEGATIVE 05/11/2017 11:04am 05/11/2017 11:40am Urine Nitrite NEGATIVE NEGATIVE 05/11/2017 11:04am 05/11/2017 11: 40am Urine Protein NEGATIVE NEGATIVE 05/11/2017 11:04am 05/11/2017 11: 40am Urine Glucose (UA) NEGATIVE NEGATIVE 05/11/2017 11:04am 05/11/2017 11 :40am Urine Ketones NEGATIVE NEGATIVE 05/11/2017 11:04am 05/11/2017 11: 40am Urine Urobilinogen 0.2 mg/dL 0.2 - 1 05/11/2017 11:04am 05/11/2017 11: 40am Urine Bilirubin NEGATIVE NEGATIVE 05/11/2017 11:04am 05/11/2017 11: 40am Urine Blood TRACE H NEGATIVE 05/11/2017 11:04am 05/11/2017 11:40am Urine WBC 11-20 /HPF H 0-5 05/11/2017 11:04am 05/11/2017 11:50am Urine RBC 0-5 /HPF 0-5 05/11/2017 11:04am 05/11/2017 11:50am Urine Bacteria RARE /HPF NONE 05/11/2017 11:04am 05/11/2017 11:50am Urine Epithelial Cells MODERATE /LPF NONE 05/11/2017 11:04am 2016 11:50am Urine Amorphous Sediment FEW FEW 05/11/2017 11:04am 05/11/2017 11: 50am Bedside Glucose 81 mg/dL 70-120 05/16/2017 3:53pm 05/16/2017 4:23pm Meter ID: [id number] Magnesium Level 1.8 MG/DL 1.3-2.1 05/11/2017 5:50am 05/11/2017 6:43am B-Type Natriuretic Peptide 107.9 pg/mL H 0-100 05/11/2017 5:50am 2016 7:09am Creatine Kinase 59 IU/L 29-168 05/11/2017 10:25pm 05/11/2017 11:30pm Creatine Kinase MB 2.70 ng/mL 0.00-5.00 05/11/2017 10:25pm 05/11/2017 11:32pm Troponin I 0.027 ng/mL 0-0.300 05/11/2017 10:25pm 05/11/2017 11:32pm Arterial Blood pH 7.40 7.31-7.41 09/09/2017 10:1309/10/2017 9: 10am Arterial Blood Partial Pressure CO2 43 mmHg 41-51 09/09/2017 10:13am 9:10am Arterial Blood Partial Pressure O2 61 mmHg L 80-105 09/09/2017 10:13am 09/10/2017 9:10am Arterial Blood HCO3 28 mmol/L 23-28 09/09/2017 10:13am 09/10/2017 9: 10am Arterial Blood Base Excess 3.0 mmol/L -2 - 3 09/09/2017 10:13am 2017 9:10am Arterial Blood Oxygen Saturation 91.0 % L 95-98 09/09/2017 10:13am 09/10 9:10am White Blood Count 6.63 x10e3/uL 4.8-10.8 10/15/2017 7:05am 10/15/2017 7 :21am Red Blood Count 3.03 x10e6/uL L 3.6-5.1 10/15/2017 7:05am 10/15/2017 7: 21am Hemoglobin 9.2 g/dL L 12.0-16.0 10/15/2017 7:05am 10/15/2017 7:21am Hematocrit 28.1 % L 34.2-44.1 10/15/2017 7:05am 10/15/2017 7:21am Mean Corpuscular Volume 92.7 fL 81-99 10/15/2017 7:05am 10/15/2017 7: 21am Mean Corpuscular Hemoglobin 30.4 pg 28-32 10/15/2017 7:05am 10/15/2017 7:21am Mean Corpuscular Hemoglobin Concent 32.7 g/dL 31-35 10/15/2017 7:05am 10/15/2017 7:21am Red Cell Distribution Width 15.8 % H 11.7-14.4 10/15/2017 7:05am 2017 7:21am Platelet Count 214 x10e3/uL 140-360 10/15/2017 7:05am 10/15/2017 7: 21am Neutrophils (%) (Auto) 68.5 % 38.7-80.0 10/15/2017 7:05am 10/15/2017 7: 21am Lymphocytes (%) (Auto) 20.1 % 18.0-39.1 10/15/2017 7:05am 10/15/2017 7: 21am Monocytes (%) (Auto) 7.8 % 4.4-11.3 10/15/2017 7:05am 10/15/2017 7: 21am Eosinophils (%) (Auto) 2.4 % 0.0-6.0 10/15/2017 7:05am 10/15/2017 7: 21am Basophils (%) (Auto) 0.6 % 0.0-1.0 10/15/2017 7:0510/15/2017 7:21am IM GRANULOCYTES % 0.6 % 0.0-1.0 10/15/2017 7:0510/15/2017 7:21am Neutrophils # (Auto) 4.5 2.1-6.9 10/15/2017 7:0510/15/2017 7:21am Lymphocytes # (Auto) 1.3 1.0-3.2 10/15/2017 7:0510/15/2017 7:21am Monocytes # (Auto) 0.5 0.2-0.8 10/15/2017 7:0510/15/2017 7:21am Eosinophils # (Auto) 0.2 0.0-0.4 10/15/2017 7:0510/15/2017 7:21am Basophils # (Auto) 0.0 0.0-0.1 10/15/2017 7:0510/15/2017 7:21am Absolute Immature Granulocyte (auto 0.04 x10e3/uL 0-0.1 10/15/2017 7: 0510/15/2017 7:21am Sodium Level 138 mmol/L 136-145 10/15/2017 7:0510/15/2017 7:47am Potassium Level 3.8 mmol/L 3.5-5.1 10/15/2017 7:0510/15/2017 7:47am Chloride Level 106 mmol/L 98-107 10/15/2017 7:0510/15/2017 7:47am Carbon Dioxide Level 26 mmol/L -10/15/2017 7:0510/15/2017 7: 47am Anion Gap 9.8 mmol/L 8-16 10/15/2017 7:0510/15/2017 7:47am Blood Urea Nitrogen 17 mg/dL 7-10/15/2017 7:0510/15/2017 7:47am Creatinine 0.64 mg/dL 0.57-1.11 10/15/2017 7:0510/15/2017 7:47am BUN/Creatinine Ratio 27 H 6-10/15/2017 7:0510/15/2017 7:47am Estimat Glomerular Filtration Rate > 60 ML/MIN 60- 10/15/2017 7:05am 7:47am Ranges were taken from the National Kidney Disease Education Program and the National Kidney Foundation literature. Reference ranges: 60 or greater: Normal 16-59 (for 3 consecutive months): Chronic kidney disease 15 or less: Kidney failure Glucose Level 94 mg/dL 74-118 10/15/2017 7:05am 10/15/2017 7:47am Calcium Level 8.6 mg/dL 8.4-10.2 10/15/2017 7:05am 10/15/2017 7:47am Total Bilirubin 0.8 mg/dL 0.2-1.2 10/14/2017 6:40am 10/14/2017 9:53am Aspartate Amino Transf (AST/SGOT) 24 IU/L 5-34 10/14/2017 6:40am 2017 9:53am Alanine Aminotransferase (ALT/SGPT) 15 IU/L 0-55 10/14/2017 6:40am 9:53am Total Protein 5.2 g/dL L 6.5-8.1 10/14/2017 6:40am 10/14/2017 9:53am Albumin 2.9 g/dL L 3.5-5.0 10/14/2017 6:40am 10/14/2017 9:53am Globulin 2.3 g/dL 2.3-3.5 10/14/2017 6:40am 10/14/2017 9:53am Albumin/Globulin Ratio 1.3 0.8-2.0 10/14/2017 6:40am 10/14/2017 9: 53am Alkaline Phosphatase 58 IU/L 40-150 10/14/2017 6:40am 10/14/2017 9: 53am Microbiology Results Procedure Source Organism/Result Collection Date/Time Result Date/Time Result Status Blood Culture Blood NO GROWTH AFTER 5 DAYS, FINAL REPORT 05/11/2017 10: 25pm 05/16/2017 10:35pm Final Procedures Procedure Status Date Provider(s) Total replacement of right hip joint Completed 10/13/17 MARY CLARK MD Computed tomography of brain without radiopaque contrast Active 03/24/17 KARL LAMAS MD Computed tomography of cervical spine without contrast Active 03/24/17 KARL LAMAS MD Computed tomography of brain without radiopaque contrast Active 03/24/17 KAREN BRENNER MD MRI jnt of lwr extre w/o dye Active 09/09/17 MARY CLARK MD Encounters Encounter Location Arrival/Admit Date Discharge/Depart Date Attending Provider Discharged Inpatient [facility] 10/13/17 4:49pm 10/15/17 1:52pm MARY CLARK MD Registered Clinic [facility] 09/09/17 8:26am MARY CLARK MD Discharged Inpatient [facility] 05/13/17 10:02am 8:05pm JOSE OMER MD Departed Emergency Room [facility] 03/24/17 4:50pm 12:50am KARL LAMAS MD
[2017-10-27] MEDS ORDERED: ONDANSETRON HCL INJ 2 MG/ML VIAL IV STA (04:09)
[2017-10-27] MEDS ORDERED: MORPHINE SULFATE 2 MG/ML SYR IV STA (04:09)
[2017-10-27 04:47] LABS: BASOPHILS # (AUTO) 0.1 (0.0-0.1); BASOPHILS % 0.5 % (0.0-1.0); EOSINOPHILS % 0.1 % (0.0-6.0); HEMATOCRIT 31.5 % (34.2-44.1); HEMOGLOBIN 10.2 g/dL (12.0-16.0); LYMPHOCYTES % 8.7 % (18.0-39.1); MEAN CORPUSCULAR HEMOGLOBIN 30.2 pg (28-32); MEAN CORPUSCULAR HGB CONC 32.4 g/dL (31-35); MEAN CORPUSCULAR VOLUME 93.2 fL (81-99); MONOCYTES # (AUTO) 0.4 (0.2-0.8); MONOCYTES % 3.7 % (4.4-11.3); NEUTROPHILS # (AUTO) 9.9 (2.1-6.9); NEUTROPHILS % 86.7 % (38.7-80.0); PLATELET COUNT 366 x10e3/uL (140-360); RED BLOOD COUNT 3.38 x10e6/uL (3.6-5.1); RED CELL DISTRIBUTION WIDTH 15.9 % (11.7-14.4)
[2017-10-27 05:11] LABS: ALANINE AMINOTRANSFERASE 17 IU/L (0-55); ALBUMIN 3.4 g/dL (3.5-5.0); ALBUMIN/GLOBULIN RATIO 1.1 (0.8-2.0); ALKALINE PHOSPHATASE 100 IU/L (40-150); ANION GAP 15.2 mmol/L (8-16); BLOOD UREA NITROGEN 16 mg/dL (7-26); BUN/CREATININE RATIO 21 (6-25); CARBON DIOXIDE 22 mmol/L (22-29); CHLORIDE 107 mmol/L (98-107); CREATINE KINASE 63 IU/L (29-168); CREATININE, SERUM 0.77 mg/dL (0.57-1.11); EST GLOMERULAR FILTRATION RATE > 60 ML/MIN (60-); GLUCOSE 109 mg/dL (74-118); POTASSIUM 4.2 mmol/L (3.5-5.1); SODIUM 140 mmol/L (136-145)
--- NOTE | 2017-10-27 05:43 | Diagnostic Imaging Report ---
EXAM: HIP RIGHT 2-3 VW (+/- PELVIS) INDICATION: Fall with pop in right leg COMPARISON: Pelvic x-ray October 13, 2017 FINDINGS: BONES: Acute displaced right greater trochanteric fracture. JOINTS: Bilateral hip arthroplasty without malalignment. SOFT TISSUES: Interval removal of [place] and resolution of subcutaneous emphysema of the right hip. IMPRESSION: Acute displaced right greater trochanteric fracture. Questionable tiny avulsion off the right lesser trochanter as well. Signed by: Dr. Christie Hilliard M.D. on 10/27/2017 5:40 AM
--- NOTE | 2017-10-27 05:44 | Diagnostic Imaging Report ---
EXAM: KNEE RIGHT THREE VIEWS, AP, lateral and oblique INDICATION: Fall, right knee pain COMPARISON: None FINDINGS: BONES: No acute fractures. JOINTS: Moderate tricompartmental degenerative changes and chondrocalcinosis. SOFT TISSUES: Normal IMPRESSION: Moderate degenerative changes of the right knee and chondrocalcinosis. Signed by: Dr. Christie Hilliard M.D. on 10/27/2017 5:40 AM
--- NOTE | 2017-10-27 05:45 | Diagnostic Imaging Report ---
EXAM: ANKLE 3 + VIEWS RIGHT, AP, lateral and oblique INDICATION: Fall, right ankle pain COMPARISON: None FINDINGS: BONES: No acute fractures. Well-corticated ossification inferior to the lateral malleolus is likely from a prior injury. JOINTS: No malalignment. SOFT TISSUES: Normal IMPRESSION: No evidence of an acute right ankle fracture. Signed by: Dr. Christie Hilliard M.D. on 10/27/2017 5:41 AM
[2017-10-27 06:48] LABS: PARTIAL THROMBOPLASTIN TIME 21.2 seconds (23.8-35.5)
[2017-10-27 06:52] LABS: INR 0.97; PROTHROMBIN TIME 12.1 seconds (11.9-14.5)
[2017-10-27] MEDS ORDERED: HYDRALAZINE HCL 20 MG/ML VIAL IV PRN (07:00)
[2017-10-27] MEDS ORDERED: SODIUM CHLORIDE FLUSH 10 ML SYR INJ PRN (07:00)
[2017-10-27] MEDS ORDERED: ALBUTEROL/IPRATROPIUM 3 ML NEB NEB PRN (07:00)
[2017-10-27] MEDS: MORPHINE SULFATE 2 MG/ML SYR IV PRN ×3 (07:18→17:41)
[2017-10-27] MEDS: ONDANSETRON HCL INJ 2 MG/ML VIAL IV PRN ×3 (07:18→17:41)
[2017-10-27] MEDS ORDERED: ASPIRIN325 MG PO (08:36)
[2017-10-27] MEDS ORDERED: AMLODIPINE BESYLATE 5 MG TAB PO SCH (09:00)
[2017-10-27] MEDS ORDERED: LOSARTAN POTASSIUM 25 MG TAB PO SCH (09:00)
[2017-10-27 10:06] VITALS: BP 189/111
[2017-10-27 10:25] VITALS: BP 189/111
[2017-10-27 10:29] VITALS: BP 189/111
[2017-10-27 11:39] LABS: ANISOCYTOSIS SLIGHT; HYPOCHROMASIA SLIGHT; RBC MORPHOLOGY COMMENT NORMAL
[2017-10-27 11:40] LABS: PLATELET ESTIMATE SLIGHTLY INCREASED; PLATELET MORPHOLOGY COMMENT NORMAL
[2017-10-27 11:47] LABS: HEMATOCRIT 30.8 % (34.2-44.1); HEMOGLOBIN 10.1 g/dL (12.0-16.0)
--- NOTE | 2017-10-27 11:53 | History and Physical ---
Ms. Brown is a very complex and elderly 72-year-old woman who was admitted through the emergency room overnight with a complaint of right hip pain. HISTORY OF PRESENT ILLNESS: The patient reports that she had a right total hip replacement about 4 weeks ago and during the night, while getting up to go to the bathroom, she heard a pop in the hip, and that was very painful and then could not walk. PAST MEDICAL HISTORY: Significant for the right total hip replacement about 4 weeks ago. She had a remote left hip replacement. She has had remote hysterectomy, appendectomy and tonsillectomy. She has very severe COPD with previous evaluation by Dr. Mitchell with pulmonary function showing FEV1 of 0.3. She uses home oxygen. She has diagnosis of hypertension for which she uses amlodipine 5 mg and losartan 50 mg daily. She uses clonidine 0.2 mg p.r.n., which, as she reports, "drops her blood pressure precipitously." Other home medicines include Combivent, pravastatin 20 mg daily, aspirin 81 mg daily and Vicodin p.r.n. PERSONAL AND SOCIAL HISTORY: She does not currently smoke. REVIEW OF SYSTEMS: Cardiac: She had a remote coronary stent and renal stent by Dr. Bowman at [facility] more than 5 years ago but has not had any recurrent chest pain. Indeed, her Cardiolite showed normal perfusion and normal EF at 55% on September 14, 2017. PHYSICAL EXAMINATION GENERAL: Exam at this time shows an elderly white woman who looks much older than her stated age. HEENT: Otherwise unremarkable. NECK: No jugular venous distention. THORAX: Heart sounds S1, S2 are equal, no murmurs. RESPIRATORY: Clear with prolonged inspiratory and expiratory phases. ABDOMEN: Protuberant. EXTREMITIES: Steri-Strips on the right hip area. ASSESSMENT 1. X-ray suggests acute displaced right greater trochanter fracture. 2. Severe chronic obstructive pulmonary disease. 3. Coronary disease, clinically stable. 4. Hypertension. PLAN: Will continue medications and await evaluation by Dr. Ruffin. Job#: [id number] cc:MD MARY PACHECO MD JOSEE LALIBERTE, MD
[2017-10-27 12:27] VITALS: BP 147/95
[2017-10-27 16:00] VITALS: BP 120/74
[2017-10-27 20:22] VITALS: BP 134/92
[2017-10-27] MEDS: LOSARTAN POTASSIUM 25 MG TAB PO SCH (20:32)
[2017-10-27] MEDS: AMLODIPINE BESYLATE 5 MG TAB PO SCH (20:33)
[2017-10-28] VITALS (9 sets, daily range): BP systolic 118–180; BP diastolic 67–92
[2017-10-28 06:17] LABS: BASOPHILS # (AUTO) 0.1 (0.0-0.1); BASOPHILS % 0.9 % (0.0-1.0); EOSINOPHILS # (AUTO) 0.1 (0.0-0.4); EOSINOPHILS % 1.8 % (0.0-6.0); HEMATOCRIT 30.5 % (34.2-44.1); HEMOGLOBIN 9.8 g/dL (12.0-16.0); LYMPHOCYTES # (AUTO) 1.5 (1.0-3.2); LYMPHOCYTES % 20.9 % (18.0-39.1); MEAN CORPUSCULAR HEMOGLOBIN 30.2 pg (28-32); MEAN CORPUSCULAR HGB CONC 32.1 g/dL (31-35); MEAN CORPUSCULAR VOLUME 94.1 fL (81-99); MONOCYTES # (AUTO) 0.4 (0.2-0.8); MONOCYTES % 6.1 % (4.4-11.3); NEUTROPHILS # (AUTO) 4.9 (2.1-6.9); PLATELET COUNT 394 x10e3/uL (140-360); RED BLOOD COUNT 3.24 x10e6/uL (3.6-5.1); RED CELL DISTRIBUTION WIDTH 15.6 % (11.7-14.4)
[2017-10-28 06:51] LABS: ALANINE AMINOTRANSFERASE 11 IU/L (0-55); ALBUMIN 3.2 g/dL (3.5-5.0); ALBUMIN/GLOBULIN RATIO 1.3 (0.8-2.0); ALKALINE PHOSPHATASE 97 IU/L (40-150); ANION GAP 12.1 mmol/L (8-16); BLOOD UREA NITROGEN 16 mg/dL (7-26); BUN/CREATININE RATIO 21 (6-25); CALCIUM 9.3 mg/dL (8.4-10.2); CARBON DIOXIDE 26 mmol/L (22-29); CHLORIDE 103 mmol/L (98-107); CREATININE, SERUM 0.77 mg/dL (0.57-1.11); EST GLOMERULAR FILTRATION RATE > 60 ML/MIN (60-); GLUCOSE 96 mg/dL (74-118); POTASSIUM 4.1 mmol/L (3.5-5.1); SODIUM 137 mmol/L (136-145)
[2017-10-28] MEDS: ONDANSETRON HCL INJ 2 MG/ML VIAL IV PRN ×4 (08:26→23:30)
[2017-10-28] MEDS: MORPHINE SULFATE 2 MG/ML SYR IV PRN ×2 (08:26→14:36)
[2017-10-28] MEDS ORDERED: MAGNESIUM HYDROXIDE 30 ML UDC PO PRN (17:15)
[2017-10-28] MEDS ORDERED: ZOLPIDEM TARTRATE 5 MG TAB PO PRN (17:15)
[2017-10-28] MEDS ORDERED: ACETAMINOPHEN 325 MG TAB PO PRN (17:15)
[2017-10-28] MEDS ORDERED: PROMETHAZINE 12.5MG/ NACL 0.9% 12.5 MG/50 ML BAG IV PRN (17:15)
[2017-10-28] MEDS ORDERED: FENTANYL 25 MCG/HR PATCH TOP SCH (19:00)
[2017-10-28] MEDS: HYDROMORPHONE 1MG/1ML INJ IV PRN ×2 (19:30→23:30)
[2017-10-28] MEDS: LOSARTAN POTASSIUM 25 MG TAB PO SCH (20:27)
[2017-10-28] MEDS: AMLODIPINE BESYLATE 5 MG TAB PO SCH (20:27)
[2017-10-29] MEDS: HYDROMORPHONE 1MG/1ML INJ IV PRN ×4 (05:02→21:39)
[2017-10-29] MEDS: ONDANSETRON HCL INJ 2 MG/ML VIAL IV PRN ×2 (05:02→21:39)
[2017-10-29 05:27] VITALS: BP 144/78
[2017-10-29 08:00] VITALS: BP 104/65
[2017-10-29] MEDS: DOCUSATE SODIUM 100 MG CAP PO SCH (08:20)
[2017-10-29 12:00] VITALS: BP 121/68
[2017-10-29 16:00] VITALS: BP 128/80
[2017-10-29 19:41] VITALS: BP 140/60
[2017-10-29 20:00] VITALS: BP 140/60
[2017-10-29] MEDS: LOSARTAN POTASSIUM 25 MG TAB PO SCH (20:25)
[2017-10-29] MEDS: AMLODIPINE BESYLATE 5 MG TAB PO SCH (20:26)
[2017-10-30 00:22] VITALS: BP 158/90
[2017-10-30] MEDS: HYDROMORPHONE 1MG/1ML INJ IV PRN ×3 (01:59→11:51)
[2017-10-30] MEDS: ONDANSETRON HCL INJ 2 MG/ML VIAL IV PRN ×2 (02:00→06:05)
[2017-10-30 06:04] VITALS: BP 152/77
[2017-10-30 08:00] VITALS: BP 127/67
[2017-10-30] MEDS: DOCUSATE SODIUM 100 MG CAP PO SCH (08:20)
[2017-10-30] MEDS ORDERED: ONDANSETRON HCL INJ 2 MG/ML VIAL IV PRN (09:15)
[2017-10-30 12:00] VITALS: BP 143/73
--- NOTE | 2017-10-30 14:28 | Discharge Summary ---
Ms. Brown is a complex 72-year-old woman with severe COPD and recent right hip prosthesis, who presented to the emergency room overnight on October 27, 2017, with the complaint that she "felt a pop in her right hip" on visiting the bathroom. HOSPITAL COURSE: Patient had a right hip replacement 4 weeks earlier. New x-rays showed "avulsion of right trochanter prosthesis ". She was seen in consultation by Dr. Ruffin, who felt that the risk of reoperation would exceed benefit and chose to use medical management. She was evaluated by physical therapy. The patient had marked pain. She was seen by Dr. Willson, who provided a Duragesic patch and Dilaudid with improvement in her discomfort. Due to her inability to ambulate and care for herself, she is discharged to [facility] today where she will be further cared for. She will followup with Dr. Ruffin in 2 weeks and with her family doctor, Dr. Damon in 4 weeks. DISCHARGE DIAGNOSES 1. Avulsion of right trochanter prosthesis. 2. Severe chronic obstructive pulmonary disease. 3. Coronary disease, clinically stable. 4. Hypertension. JOSE OMER MD Job#: [id number] RI cc:MD MARY GREGORY MD GHYASUDDIN SYED, MD
[2017-10-30 16:00] VITALS: BP 116/58
== END 2017-10-30 17:04 | DRG 561 ==
LOC: ER 04:02 → ERHOLD 07:01 → MED/SURG2 09:48
PROVIDERS: ADMIT Internal Medicine Cardiovascular Disease; ATTEND Internal Medicine Cardiovascular Disease
DX: T84.010A Broken internal right hip prosthesis, initial encounter (principal); Z99.81 Dependence on supplemental oxygen; J44.9 Chronic obstructive pulmonary disease, unspecified; I10 Essential (primary) hypertension; I25.10 Atherosclerotic heart disease of native coronary artery without angina pectoris; M81.0 Age-related osteoporosis without current pathological fracture; Z95.5 Presence of coronary angioplasty implant and graft; Z96.643 Presence of artificial hip joint, bilateral; Z95.820 Peripheral vascular angioplasty status with implants and grafts; Y84.9 Medical procedure, unspecified as the cause of abnormal reaction of the patient, or of later complication, without mention of misadventure at the time of the procedure
CPT/HCPCS: 36415; 51700; 80053; 82550; 82553; 84484; 85014; 85018; 85025; 85610; 85730; 87493; 96374; 96376; 99284; J1170; J2270; J2405

== ENCOUNTER 2018-07-14 06:15 | Inpatient (IN) | payer MEDICARE ==
[~2018-07-14] VITALS: Ht 171.4 cm; Wt 61.2 kg
[2018-07-14] MEDS ORDERED: ALBUTEROL SULF 0.083% NEB SOLN 3 ML NEB NEB STA (06:36)
[2018-07-14] MEDS ORDERED: IPRATROPIUM BROMIDE 0.02% 2.5 ML NEB NEB ONE (06:45)
[2018-07-14 06:47] LABS: BASOPHILS # (AUTO) 0.1 (0.0-0.1); BASOPHILS % 1.3 % (0.0-1.0); EOSINOPHILS # (AUTO) 0.8 (0.0-0.4); EOSINOPHILS % 9.5 % (0.0-6.0); HEMATOCRIT 39.5 % (34.2-44.1); HEMOGLOBIN 12.8 g/dL (12.0-16.0); LYMPHOCYTES # (AUTO) 1.8 (1.0-3.2); LYMPHOCYTES % 21.2 % (18.0-39.1); MEAN CORPUSCULAR HEMOGLOBIN 29.3 pg (28-32); MEAN CORPUSCULAR HGB CONC 32.4 g/dL (31-35); MEAN CORPUSCULAR VOLUME 90.4 fL (81-99); MONOCYTES # (AUTO) 0.4 (0.2-0.8); MONOCYTES % 4.9 % (4.4-11.3); NEUTROPHILS # (AUTO) 5.3 (2.1-6.9); NEUTROPHILS % 62.9 % (38.7-80.0); PLATELET COUNT 261 x10e3/uL (140-360); RED BLOOD COUNT 4.37 x10e6/uL (3.6-5.1); RED CELL DISTRIBUTION WIDTH 14.7 % (11.7-14.4)
[2018-07-14] MEDS ORDERED: IPRATROPIU0.2 MG/1 M NEB (06:54)
[2018-07-14] MEDS ORDERED: LOSARTAN POTASS50 MG PO (06:54)
[2018-07-14] MEDS ORDERED: ASPIRIN EC81 MG PO (06:54)
[2018-07-14] MEDS ORDERED: VENTOLIN HFA18 GM INH (06:54)
[2018-07-14] MEDS ORDERED: ALBUTEROL2.5 MG/3 M NEB (06:54)
[2018-07-14] MEDS ORDERED: BUDESONIDE0.25 MG/2 NEB (06:54)
[2018-07-14] MEDS ORDERED: ALPRAZOLAM0.5 MG PO (06:54)
[2018-07-14 07:02] LABS: ALANINE AMINOTRANSFERASE 21 IU/L (0-55); ALBUMIN/GLOBULIN RATIO 1.4 (0.8-2.0); ALKALINE PHOSPHATASE 72 IU/L (40-150); ANION GAP 14.7 mmol/L (8-16); BLOOD UREA NITROGEN 14 mg/dL (7-26); BUN/CREATININE RATIO 18 (6-25); CALCIUM 9.8 mg/dL (8.4-10.2); CARBON DIOXIDE 26 mmol/L (22-29); CHLORIDE 100 mmol/L (98-107); CREATINE KINASE 103 IU/L (29-168); CREATININE, SERUM 0.79 mg/dL (0.57-1.11); EST GLOMERULAR FILTRATION RATE > 60 ML/MIN (60-); GLUCOSE 120 mg/dL (74-118); POTASSIUM 3.7 mmol/L (3.5-5.1); SODIUM 137 mmol/L (136-145)
--- NOTE | 2018-07-14 07:02 | NUR ---
REPORT TO PATO GRISSOM RN
--- NOTE | 2018-07-14 07:18 | Diagnostic Imaging Report ---
EXAM: CHEST SINGLE (PORTABLE), AP Portable DATE: 07/14/2018 6:36 AM Time stamp on exam: 6:55 AM INDICATION: Shortness of breath COMPARISON: None FINDINGS: LINES/TUBES: None LUNGS: No consolidations or edema. PLEURA: No effusions or pneumothorax. HEART AND MEDIASTINUM: Normal size and contour. BONES AND SOFT TISSUES: No acute findings. Posttraumatic degenerative changes of the left humeral head. IMPRESSION: No acute thoracic abnormality. Signed by: Dr. Jaylan Bruno DO on 07/14/2018 7:14 AM
[2018-07-14] MEDS ORDERED: ONDANSETRON HCL INJ 2 MG/ML VIAL IV PRN (08:30)
[2018-07-14] MEDS: AZITHROMYCIN 500MG/NS 250 ML 250 ML IV SCH ×2 (09:00→09:09)
[2018-07-14] MEDS: ASPIRIN 81 MG ENTERIC COATED PO SCH (09:09)
--- NOTE | 2018-07-14 09:36 | NUR ---
ATTEMPTED TO CALL REPORT
--- NOTE | 2018-07-14 10:00 | NUR ---
report received from ER, patient arrived on stretcher. Patient alert and oriented, bed in lowest position, call parker within reach.
[2018-07-14 10:20] VITALS: BP 129/64
[2018-07-14 10:22] VITALS: BP 129/64
[2018-07-14 10:31] VITALS: BP 129/64
[2018-07-14] MEDS: ALBUTEROL SULF 0.083% NEB SOLN 3 ML NEB NEB SCH ×4 (11:00→23:30)
[2018-07-14] MEDS: IPRATROPIUM BROMIDE 0.02% 2.5 ML NEB NEB SCH ×4 (11:00→23:35)
--- NOTE | 2018-07-14 12:51 | Consultation ---
DATE OF CONSULTATION: July 14, 2018 PULMONARY MEDICINE CONSULT REASON FOR REFERRAL: Shortness of breath. HISTORY: Ms. Brown is a pleasant 69-year-old female with shortness of breath. Patient with onset 2 days ago. Patient with associated chest tightness. Patient was feeling that the pattern was worsening. Originally moderate severity. It is increasing. Patient came to the emergency room. She notified them that she had failed her breathing treatments and escalation including using her Anoro, ProAir, nebulizers, Mucinex, and other treatments. She was admitted. Her chest x-ray with clear lungs. Patient known to me from my clinic. She has COPD. She is on home oxygen. She has poor endurance of about 2 rooms exercise tolerance and she was recommended for pulmonary rehab. She is not done yet. She was also recommended for lung transplant evaluation. Her medications are Anoro and ProAir inhalers. Nebulized medicines with albuterol and ipratropium are backup. PAST MEDICAL HISTORY: Hypertension, COPD, chronic respiratory failure, hypoxemia, back problems. SURGERIES: Appendectomy, hysterectomy, history of PCI reportedly and kidney stent. MEDICATIONS: Medication list reviewed per the chart record. ALLERGIES: LEVOFLOXACIN IS CITED. SOCIAL HISTORY: No alcohol. No drugs. Patient smokes from age 18 to 57, one pack per day. 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 She lives in [place] by herself. FAMILY HISTORY: Noncontributory. REVIEW OF SYSTEMS GENERAL: No weight loss. ENT: No mouth ulcers. OPHTHALMOLOGIC: No double vision. ENDOCRINE: No thyroid disorder. PULMONARY: No asthma. CARDIAC: No heart attacks known. GI: No diarrhea. : No blood in urine. DERMATOLOGIC: No rash. NEUROLOGIC: No seizures. PSYCHIATRIC: No depression. IMMUNOLOGIC: No allergies. OBJECTIVE VITALS: Afebrile. Vital signs noted per the chart record. GENERAL: No acute distress, appears better now. Able to talk in sentences. HEENT: Normocephalic, atraumatic. NECK: Supple. Throat midline. LUNGS: Bilateral air entry is decreased. Rare rhonchi. CARDIOVASCULAR: S1, S2. No murmurs, rubs, or gallops. ABDOMEN: Soft, nontender. EXTREMITIES: No clubbing, no cyanosis. There is no edema. INTEGUMENT: No rash. No purpura. LABS: 8 white count, 39 hematocrit, 261 platelets. 3.7 potassium, 14 BUN, 0.8 creatinine. Total bilirubin is 2.0. Chest x-ray: clear lung [place]. IMPRESSIONS AND PLANS 1. Chronic obstructive pulmonary disease with exacerbation. 2. Chronic respiratory failure, chronic hypoxemia. 3. Weakness, decreased functional endurance. 4. Former smoker, quit long ago. 5. Hypertension. 6. Reported back problems. 7. History of coronary artery disease status post coronary stenting 2011. 8. Renal artery stenosis, status post stenting in about 2009. Continue steroids. Bronchodilators. Empiric antibiotics. Aggressive PT. I discussed with the pulmonary rehab department where the patient is expected to resume and start aggressive pulmonary rehab. She may be an excellent lung transplant candidate if she can increase her functional endurance and if she can have reasonable coronaries. Eventually she will need left and right heart catheterization. She is also due for low-dose lung CAT scan for lung cancer screening, which we can set up as outpatient. Thank you very much, Dr. Pool, and Dr. Damon, for allowing me the chance to participate in the care of Ms. Brown. Do not hesitate to contact me if I can help in any way. Job#: [id number] ARIANE
--- NOTE | 2018-07-14 13:26 | History and Physical ---
Ms. Brown is a complex, 73-year-old lady with multiple medical problems who presented to the emergency room by ambulance with shortness of breath. HISTORY OF PRESENT ILLNESS: The patient reports she is having difficulty walking around the house even to get to the bathroom while using nasal cannula oxygen. She reports she was given steroids en route by ambulance. PAST MEDICAL HISTORY: Long and complex with severe COPD. Has some history of hypertension in the past, not currently taking any medications. She had a right hip replacement in October 2017 and has been healing since that time. She has had a remote hysterectomy, remote appendectomy, remote tonsillectomy and a remote left hip replacement. She uses inhalers at home but does not know the names of them. Past medical history is also significant for syncope, but she had a tilt table and electrophysiology study that were both negative. PERSONAL AND SOCIAL HISTORY: She does not smoke or drink. PHYSICAL EXAMINATION GENERAL: Exam at this time shows a thin woman who looks much older than her stated age. She is 5 feet 6 inches tall, weighing 135 pounds. VITAL SIGNS: Blood pressure 129/64. Afebrile. HEENT: Unremarkable. NECK: No jugular venous distention. THORAX: Heart sounds S1, S2 are equal. No murmurs. LUNGS: Distant breath sounds with faint rhonchi. ABDOMEN: Normal bowel sounds. EXTREMITIES: Healed incision on the right hip. No cyanosis, clubbing or edema. EKG: Sinus rhythm. LABORATORY STUDIES. CBC with white count 8.3, hemoglobin 12.8. Chemistries show glucose 120. Total CPK 103. CK-MB is 9.4, and troponin I is 0.055. ASSESSMENT 1. Exacerbation of chronic obstructive pulmonary disease. 2. General weight loss. 3. History of coronary stenting more than 5 years ago at [facility] by Dr. Matt Bowman with no recurrent chest pain since that time. She also had a renal artery stent at the same time. PLAN: Will monitor, recheck cardiac enzymes and ask for input from Dr. Rojas. Further management will be based on clinical course. Job#: [id number] cc:LAUREN ROJAS M.D.
[2018-07-14 15:51] LABS: CREATINE KINASE MB 8.8 ng/mL (0-5.0)
[2018-07-14 16:17] LABS: CLARITY,URINE HAZY (CLEAR); COLOR,URINE YELLOW (YELLOW); KETONES,URINE TRACE (NEGATIVE); LEUKOCYTE ESTERASE ,URINE TRACE (NEGATIVE); NITRITE,URINE POSITIVE (NEGATIVE); PROTEIN,URINE DIPSTICK NEGATIVE (NEGATIVE)
[2018-07-14 16:18] LABS: BILIRUBIN,URINE NEGATIVE (NEGATIVE); URINE UROBILINOGEN 0.2 mg/dL (0.2 - 1)
[2018-07-14 16:27] LABS: BACTERIA,URINE MANY /HPF; EPITHELIAL CELLS,URINE MODERATE /LPF; RBC,URINE 0-5 /HPF (0-5); WBC,URINE (MAN) 0-5 /HPF (0-5)
[2018-07-14] MEDS: METHYLPREDNISOLONE SOD SUCC 125 MG/2ML VIAL IV SCH ×2 (17:00→22:32)
[2018-07-14] MEDS: ENOXAPARIN SOD INJ 40 MG/0.4 ML SYR SC SCH (17:00)
--- NOTE | 2018-07-14 18:55 | NUR ---
rounded with the warehouse shift supervisor nurse, patient aware of change. Patient in no distress, call parker within reach
[2018-07-14 19:14] VITALS: BP 161/81
--- NOTE | 2018-07-14 19:30 | NUR ---
patient blood pressure is elevated. patient is also complaining of headache. MD paged, awaiting call back. will continue to monitor patient.
[2018-07-14 20:00] VITALS: BP 161/81
[2018-07-14] MEDS: LOSARTAN POTASSIUM 100 MG TAB PO SCH (22:32)
[2018-07-14] MEDS: AMLODIPINE BESYLATE 10 MG TAB PO SCH (22:33)
--- NOTE | 2018-07-14 22:37 | NUR ---
MD returned call. received new orders. will continue to monitor patient.
[2018-07-14] MEDS: ACETAMINOPHEN 325 MG TAB PO PRN (23:08)
[2018-07-14 23:57] VITALS: BP 192/88
[2018-07-15] VITALS (7 sets, daily range): BP systolic 131–151; BP diastolic 63–82
[2018-07-15 03:03] LABS: CREATINE KINASE MB 9.4 ng/mL (0-5.0)
[2018-07-15] MEDS: ALBUTEROL SULF 0.083% NEB SOLN 3 ML NEB NEB SCH ×6 (03:30→23:00)
[2018-07-15] MEDS: IPRATROPIUM BROMIDE 0.02% 2.5 ML NEB NEB SCH ×6 (03:30→23:00)
[2018-07-15 05:19] LABS: HEMATOCRIT 36.4 % (34.2-44.1); HEMOGLOBIN 11.9 g/dL (12.0-16.0); LYMPHOCYTES # (AUTO) 0.5 (1.0-3.2); LYMPHOCYTES % 9.7 % (18.0-39.1); MEAN CORPUSCULAR HEMOGLOBIN 28.8 pg (28-32); MEAN CORPUSCULAR HGB CONC 32.7 g/dL (31-35); MEAN CORPUSCULAR VOLUME 88.1 fL (81-99); MONOCYTES # (AUTO) 0.1 (0.2-0.8); MONOCYTES % 1.6 % (4.4-11.3); NEUTROPHILS # (AUTO) 4.5 (2.1-6.9); NEUTROPHILS % 88.1 % (38.7-80.0); PLATELET COUNT 261 x10e3/uL (140-360); RED BLOOD COUNT 4.13 x10e6/uL (3.6-5.1); RED CELL DISTRIBUTION WIDTH 14.7 % (11.7-14.4)
[2018-07-15] MEDS: METHYLPREDNISOLONE SOD SUCC 125 MG/2ML VIAL IV SCH ×3 (05:24→20:00)
[2018-07-15] MEDS: ACETAMINOPHEN 325 MG TAB PO PRN ×2 (05:24→19:47)
[2018-07-15 05:52] LABS: ALANINE AMINOTRANSFERASE 21 IU/L (0-55); ALBUMIN 3.9 g/dL (3.5-5.0); ALBUMIN/GLOBULIN RATIO 1.3 (0.8-2.0); ALKALINE PHOSPHATASE 65 IU/L (40-150); ANION GAP 14.3 mmol/L (8-16); BLOOD UREA NITROGEN 15 mg/dL (7-26); BUN/CREATININE RATIO 21 (6-25); CALCIUM 9.9 mg/dL (8.4-10.2); CARBON DIOXIDE 26 mmol/L (22-29); CHLORIDE 100 mmol/L (98-107); CHOL/HDL RATIO 2.7 (3.0-3.6); CHOLESTEROL 192 MD/DL (0-199); CREATININE, SERUM 0.72 mg/dL (0.57-1.11); EST GLOMERULAR FILTRATION RATE > 60 ML/MIN (60-); GLUCOSE 134 mg/dL (74-118); HDL CHOLESTEROL 72 MG/DL (40-60); LDL CHOLESTEROL 102 MG/DL (60-130); POTASSIUM 4.3 mmol/L (3.5-5.1); SODIUM 136 mmol/L (136-145); TRIGLYCERIDES 90 MG/DL (0-149)
--- NOTE | 2018-07-15 06:40 | NUR ---
rounded with the hourly shift manager nurse, patient aware of change. Patient in no distress, bed in lowest position and call parker within reach.
[2018-07-15] MEDS ORDERED: NON-FORMULARY MEDICATION (Losartan Potassium 100 MG) PO SCH (09:00)
[2018-07-15] MEDS ORDERED: AMLODIPINE BESYLATE 5 MG TAB PO SCH ×2 (09:00)
[2018-07-15] MEDS ORDERED: NON-FORMULARY MEDICATION (Losartan Potassium 50 MG) PO SCH (09:00)
[2018-07-15] MEDS: LOSARTAN POTASSIUM 100 MG TAB PO SCH ×4 (09:00→19:28)
--- NOTE | 2018-07-15 09:18 | NUR ---
SOCIAL WORK INITIAL ASSESSMENT Sound Cutter to bedside to discuss plan of care with patient/family. CM/SW role and care transitions discussed. Anticipated discharge plan discussed along with duration of care. CM/SW discussed patients right to make decisions in care. CM/SW work hours given. Patient lives: IN OWN HOME BY SELF Admit/Transfer: VIA ED FROM HOME POA/Emergency contact: STATES HAS NO ONE Current/Previous Home Health: NONE PCP/Follow-up Care: JAQUELINE BAUTISTA Current/Previous DME: HAS A WALKER FROM A PREVIOUS HIP SURGERY HERE IN SEPTEMBER Other Services: NONE Employment Status: RETIRED Areas of Concerns: NONE Referral Needs: NONE Education Needs: NONE IMM/VALDEZ given and signed (if applicable): VALDEZ Goal for discharge: RETURN HOME INDEPENDENTLY CM/SW left business card at the bedside with contact information. Name and number was also written on the patients whiteboard. Patient verbalized understanding of discussion. CM will follow-up with ongoing discharge and transition of care needs.
[2018-07-15] MEDS: ASPIRIN 81 MG ENTERIC COATED PO SCH (10:00)
[2018-07-15] MEDS: AZITHROMYCIN 500MG/NS 250 ML 250 ML IV SCH (10:00)
[2018-07-15] MEDS: AMLODIPINE BESYLATE 10 MG TAB PO SCH ×2 (10:00→19:28)
--- NOTE | 2018-07-15 12:55 | Progress Note ---
DATE: July 15, 2018 CARDIOLOGY PROGRESS NOTE I am seeing this patient for Dr. Bandar Pool. Patient seen in the room. Blood pressure 150/80. Patient had some headache last night but feeling better at this time. Patient came with shortness of breath and being treated for acute exacerbation of COPD. Patient also has history of coronary artery stent placement done 5 years ago at [facility], and also he has a renal artery stent. At this time, patient does not complain of chest pain. According to her, she is feeling better as far as breathing is concerned. Patient getting IV azithromycin for antibiotics. In my point of view, patient is doing very well. Troponins are negative with no evidence of an acute congestive heart failure. Will continue all present medications. IMPRESSION 1. Acute exacerbation of chronic obstructive pulmonary disease. 2. History of coronary artery disease, coronary stent placement and renal stent placement. 3. Hypertension. Patient at this time quite stable. Will watch her blood pressure. Main issues at this time shortness of breath which is improved very much and also blood pressure getting better. Job#: [id number] RABIA
--- NOTE | 2018-07-15 13:22 | NUR ---
Nutrition Screen Note RD Recommendation for Physician: -Continue cardiac diet as ordered Plan of Care: RD following, monitoring for tolerance and adequacy Nutrition reason for involvement: Nutrition Risk Trigger MST Primary Diagnose(s): Acute exacerbation of chronic obstructive pulmonary disease. PMH: COPD, HTN, CAD Ht: 67.5in Wt: 135lb BMI: 20.8kg/m2 IBW: 143lb RD Assessment: (07/15) Chart reviewed. Labs and meds reviewed. 73 yo F, who is admitted for SOB. Visited pt in the room. Pt reports good appetite. No GI complains noted. LBM 07/13, normal per pt. No complain of chewing or swallowing difficulty. No recent weight loss reported. Will continue to monitor and follow. Current Diet: Cardiac diet Malnutrition Evaluation (07/15/18) The patient does not meet criteria for a specified degree of malnutrition at this time. Will re-evaluate at follow-up as appropriate. Diet Education Needs Assessment: Diet education not indicated. Nutrition Care Level: low Signed: Vanda Santos, MS, RD, LD
--- NOTE | 2018-07-15 18:50 | NUR ---
rounded with the cell plasterer nurse, patient aware of change. Patient in no distress, call parker within reach.
[2018-07-15] MEDS: ENOXAPARIN SOD INJ 40 MG/0.4 ML SYR SC SCH (19:28)
--- NOTE | 2018-07-15 22:48 | Progress Note ---
DATE: July 15, 2018 PULMONARY MEDICINE PROGRESS NOTE Mrs. Brown was seen and examined at bedside. She is having very slow progress. She is having lots of low energy. Today, she was feeling some headaches and furthermore, her blood pressure went into the 200s range, she states. She was able to walk, but she has lower functional endurance her baseline still. REVIEW OF SYSTEMS: No headaches, no rash. OBJECTIVE VITALS: Afebrile. Vital signs noted per electronic record. GENERAL: In no distress, weak, pale in bed. HEENT: Normocephalic, atraumatic. NECK: Supple. Throat midline. LUNGS: Bilateral air entry with decreased air entry. No wheezes, rare rhonchi. CARDIOVASCULAR: S1 and S2. No murmurs, rubs or gallops. ABDOMEN: Soft and nontender. EXTREMITIES: No clubbing, no cyanosis. There is no edema. INTEGUMENT: No rash, no purpura. LABS: 4.3 potassium, 15 BUN, 0.7 creatinine, 5 white count, 36 hematocrit, 261,000 platelets. IMPRESSIONS AND PLAN 1. Respiratory distress, improved mildly. 2. Chronic obstructive pulmonary disease with exacerbation. 3. Weakness, decreased functional endurance. 4. Hypertension. Will wean steroids. Continue bronchodilators. PT to mobilize her further. If the patient feels better, we may be able to discharge her soon. On the side issue, I still work with getting her to lung transplant team and now that she has provided us another phone number, we wish to reschedule some of the arrangements as the 1st phone number was through her cellphone, which is unreliable due to dying very quickly. Job#: [id number]
[2018-07-16] VITALS (9 sets, daily range): BP systolic 127–146; BP diastolic 60–68
[2018-07-16] MEDS: ALBUTEROL SULF 0.083% NEB SOLN 3 ML NEB NEB SCH ×6 (02:47→23:00)
[2018-07-16] MEDS: IPRATROPIUM BROMIDE 0.02% 2.5 ML NEB NEB SCH ×6 (02:47→23:00)
--- NOTE | 2018-07-16 07:00 | NUR ---
Walking rounds done. Patient instructed to call for assistance as needed and verbalized understanding. AM assessment done. Call parker within reach.
[2018-07-16] MEDS: PREDNISONE 20 MG TAB PO SCH (08:19)
[2018-07-16] MEDS: ASPIRIN 81 MG ENTERIC COATED PO SCH (08:19)
[2018-07-16] MEDS: LOSARTAN POTASSIUM 100 MG TAB PO SCH ×2 (08:19→17:55)
[2018-07-16] MEDS: AMLODIPINE BESYLATE 10 MG TAB PO SCH ×2 (08:19→17:55)
[2018-07-16] MEDS: AZITHROMYCIN 500MG/NS 250 ML 250 ML IV SCH (08:19)
--- NOTE | 2018-07-16 13:57 | NUR ---
CM SPOKE WITH DR ROJAS INPT ORDER [facility] EVAL FOR AGGRESSIVE PULM / ACUTE REHAB DR ROJAS TRYING TO GET PT ON LUNG TRANSPLANT LIST PT AGREEABLE IMM SIGNED AND ON CHART ; COPY TO PT DR RUBIO NOTIFIED OF CONSULT CLINICALS FAXED TO [facility] AT [facility] FAX: [phone], CONFIRMATION REC'D MOT INITIATED AND IN ENVELOPE AT DESK
--- NOTE | 2018-07-16 14:05 | NUR ---
Visit made by the Spiritual Care Department Pastoral Visitor, Micki Leslie. PV provided pastoral presence, prayer, hospitality, and supportive listening. Pastoral Visitor informed pt/family of the scope of Bo[facility] and availability. LIN SHIRLEY Dredge Lever Operator Spiritual Care Department O: [phone] Pager: [phone] ([phone] number calling from)
--- NOTE | 2018-07-16 14:51 | Progress Note ---
DATE: July 16, 2018 PULMONARY MEDICINE PROGRESS NOTE SUBJECTIVE: Ms. Brown was seen and examined at bedside. Patient with 3 liters per minute by nasal cannula. Patient still with very, very slow progress. She is very debilitated. She still feels to have only minimal recovery compared to when she came in the hospital. REVIEW OF SYSTEMS: No diarrhea, no constipation. OBJECTIVE VITAL SIGNS: Afebrile. Vital signs noted per electronic record. GENERALLY: No acute distress, alert and calm. HEENT: Normocephalic, atraumatic. NECK: Supple. Throat midline. LUNGS: Bilateral air entry, patient with no wheezes, rare rhonchi. CARDIOVASCULAR: S1 and S2. No murmurs, rubs or gallops. ABDOMINAL: Soft, nontender. EXTREMITIES: No clubbing, no cyanosis, no edema. INTEGUMENT: No rash. No purpura. LABS: Potassium 4.2, BUN 15, creatinine 0.7. White count 5, hematocrit 36, platelets 261. IMPRESSION AND PLAN 1. Chronic obstructive pulmonary disease with exacerbation. 2. Decreased functional endurance. 3. Weakness. 4. Chronic hypoxemia, chronic respiratory failure. I discussed with the primary doctor for continued physical therapy. I would recommend moving the patient to inpatient rehabilitation if the patient qualifies. Patient seems to be a reasonable candidate for lung transplant surgery if she can build her functional endurance. We wish to continue close followup in the meanwhile. Continue weaning steroids and continue bronchodilators. Job#: [id number] EV
--- NOTE | 2018-07-16 16:25 | Consultation ---
DATE OF CONSULTATION: July 16, 2018 REHAB CONSULTATION REFERRING PHYSICIAN: Dr. Archie Morris. I would like to thank Dr. Morris for asking me to see Mrs. Brown in consultation. REASON FOR CONSULTATION 1. Chronic obstructive pulmonary disease. 2. Patient is on a lung transplant waiting list. 3. Debilitated state. 4. Hypertension. HISTORY: This is a 73-year-old female with severe shortness of breath, who was admitted to the hospital because of worsening shortness of breath. Has gotten worse over time. Has already been placed on the lung transplant list. However, they are trying to build up her strength, endurance and pulmonary status in order to keep her going. I am being asked to evaluate for rehab needs. PAST MEDICAL HISTORY: Hypertension, COPD, chronic respiratory failure, history of back problems. SURGERIES: Appendectomy, hysterectomy, history of PCI, kidney stent. ALLERGIES: LEVAQUIN. HABITS: Nonsmoker, nondrinker. She quit smoking about 17 years ago. She is ambulatory, lives by herself in a 1-story home, uses a walker to mobilize. She is on O2 via nasal cannula. FAMILY HISTORY: Cancer runs in the family. Mother had breast cancer with mets to the brain. CONSTITUTIONAL REVIEW OF SYSTEMS: GENERAL: No weight loss but she is easily short of breath and easily fatigues. HENT: No mouth ulcers. Alert. EYES: No double vision. ENDOCRINE: No thyroid disorder. PULMONARY: Shortness of breath with exertion. CARDIAC: Some shortness of breath. GI: No diarrhea. : No frequent urinary infections. DERMATOLOGIC: No rash. MUSCULOSKELETAL: No acute thoracic abnormality. PHYSICAL EXAMINATION GENERAL: . Follows commands without any difficulty. EYES: Gaze conjugate. ORAL: Tongue is midline . NECK: Supple. HEART: Regular. LUNGS: respiratory distress. ABDOMEN: . EXTREMITIES: Functional range of motion bilaterally. No . IMPRESSION 1. Chronic obstructive pulmonary disease. 2. Patient is on . 3. Debilitated state. PLAN: Excellent rehab candidate, could benefit from therapies pulmonary status in anticipation of . Thank you once again for allowing me to participate in the care of this pleasant but unfortunate patient. Job#: [id number] RABIA
[2018-07-16] MEDS: ENOXAPARIN SOD INJ 40 MG/0.4 ML SYR SC SCH (17:55)
--- NOTE | 2018-07-16 18:59 | NUR ---
Report given to oncoming nurse. Call parker within reach.
[2018-07-16] MEDS: ACETAMINOPHEN 325 MG TAB PO PRN (20:04)
[2018-07-17] VITALS (8 sets, daily range): BP systolic 122–164; BP diastolic 57–92
[2018-07-17] MEDS: ALBUTEROL SULF 0.083% NEB SOLN 3 ML NEB NEB SCH ×6 (02:40→23:05)
[2018-07-17] MEDS: IPRATROPIUM BROMIDE 0.02% 2.5 ML NEB NEB SCH ×6 (02:40→23:05)
--- NOTE | 2018-07-17 06:40 | NUR ---
HANDOFF REPORT AND WALKING ROUNDS WITH OUTGOING COMMERCIAL CARPET INSTALLER NURSE.
[2018-07-17] MEDS: AMLODIPINE BESYLATE 10 MG TAB PO SCH ×2 (09:18→17:30)
[2018-07-17] MEDS: AZITHROMYCIN 500MG/NS 250 ML 250 ML IV SCH (09:18)
[2018-07-17] MEDS: LOSARTAN POTASSIUM 100 MG TAB PO SCH ×2 (09:18→17:30)
[2018-07-17] MEDS: ASPIRIN 81 MG ENTERIC COATED PO SCH (09:18)
[2018-07-17] MEDS: PREDNISONE 20 MG TAB PO SCH (09:18)
--- NOTE | 2018-07-17 10:00 | NUR ---
IV ABX-ZITHROMAX STOPPED AT THIS TIME BECAUSE PT C/O SEVERE ITCHING TO IV SITE; ARM ASSOCIATED WITH IV IS REDNESS. IV FLUSHED. WILL CONTINUE TO MONITOR.
[2018-07-17] MEDS: ACETAMINOPHEN 325 MG TAB PO PRN ×2 (11:03→17:30)
--- NOTE | 2018-07-17 11:43 | NUR ---
Kat with [facility] notified CM today that pt is denied inpatient rehab by Dr. Johnson.
--- NOTE | 2018-07-17 12:45 | NUR ---
DR RAMIRO AIKEN
--- NOTE | 2018-07-17 14:34 | NUR ---
Dr. Arturo fermin. Addendum: 07/17/18 at 1853 by Shikha Osorio RN Dr. Morris made aware of reaction to Zithromax.
[2018-07-17] MEDS: ENOXAPARIN SOD INJ 40 MG/0.4 ML SYR SC SCH (17:30)
--- NOTE | 2018-07-17 18:26 | Progress Note ---
DATE: July 17, 2018 CARDIOLOGY PROGRESS NOTE Patient seen in his room. Patient is awake and alert. Patient blood pressure is getting controlled at 140/80. Patient is on multiple antihypertensive medications. Patient also has known COPD. Dr. Pool and Dr. Morris are taking care of the blood pressure problems and also the pulmonary problem. Patient is supposed to go to the [facility] Rehabilitation floor for further rehabilitation. I believe their room is going to be available on Thursday. Patient is also waiting pulmonary transplantation. In my point of view, today patient did not have any much cardiac complaints. We will continue all her present medications as charted out in the treatment protocol at this time. Patient is quite stable cardiac mena. No pulmonary symptoms. Blood pressure is getting controlled also. Job#: [id number] LOLA
--- NOTE | 2018-07-17 19:05 | NUR ---
Report received and walking rounds complete. Pt resting in bed and in no apparent distress. Pt on 3L NC and tele. All safety measures ensured, bed alarm on, and pt call parker near. Pt encouraged to use call parker for assistance.
[2018-07-17] MEDS: TRAZODONE HCL 50 MG TAB PO SCH (20:31)
--- NOTE | 2018-07-17 22:47 | Progress Note ---
DATE: July 17, 2018 PULMONARY MEDICINE PROGRESS NOTE SUBJECTIVE: Ms Brown was seen and examined at bedside. She may or may not have had a reaction to azithromycin. She has some itching and throat soreness now. She is eating well. She is walking with a walker, but she has very little functional endurance and definitely not near her baseline. REVIEW OF SYSTEMS: No headaches, no bleeding. OBJECTIVE VITAL SIGNS: Afebrile. Vital signs noted per electronic record. GENERAL: No acute distress, pale, in bed. HEENT: Normocephalic and atraumatic. NECK: Supple. Throat is midline. LUNGS: Bilateral air entry, moderate with mild wheezes bilaterally. CARDIOVASCULAR: S1 and S2. No murmurs, rubs, or gallops. ABDOMINAL: Soft and nontender. EXTREMITIES: No clubbing, no cyanosis, there is no edema. INTEGUMENT: No rash or purpura. IMPRESSION 1. COPD with exacerbation. 2. Chronic respiratory failure. 3. Hypertension. 4. Hypoxemia. 5. Back problems. 6. Weakness/low functional endurance. 7. Coronary artery disease status post stent long ago. PLAN: We will wean down the prednisone further. Patient can have continued bronchodilators. Azithromycin may need to be stopped. I will discuss with the nursing regarding . Continue supportive care. I will highly recommend pulmonary rehab for aggressive therapy course given that her window for lung transplant may not last too long. Job#: [id number] LOLA
[2018-07-18] VITALS (7 sets, daily range): BP systolic 123–145; BP diastolic 58–85
[2018-07-18] MEDS: ALBUTEROL SULF 0.083% NEB SOLN 3 ML NEB NEB SCH ×6 (00:15→19:40)
[2018-07-18] MEDS: IPRATROPIUM BROMIDE 0.02% 2.5 ML NEB NEB SCH ×6 (00:15→19:40)
--- NOTE | 2018-07-18 06:51 | NUR ---
handoff report and walking rounds with outgoing curb setter helper nurse
--- NOTE | 2018-07-18 06:55 | NUR ---
report given to oncoming nurse and walking rounds complete.
[2018-07-18] MEDS: AZITHROMYCIN 500MG/NS 250 ML 250 ML IV SCH (08:46)
[2018-07-18] MEDS: AMLODIPINE BESYLATE 10 MG TAB PO SCH ×2 (08:48→16:55)
[2018-07-18] MEDS: ACETAMINOPHEN 325 MG TAB PO PRN (08:48)
[2018-07-18] MEDS: LOSARTAN POTASSIUM 100 MG TAB PO SCH ×2 (08:48→16:55)
[2018-07-18] MEDS: ASPIRIN 81 MG ENTERIC COATED PO SCH (08:48)
[2018-07-18] MEDS: PREDNISONE 20 MG TAB PO SCH (08:48)
[2018-07-18] MEDS ORDERED: CHLORASEPTIC SPRAY 177 ML BTL MM PRN (15:00)
[2018-07-18] MEDS: ENOXAPARIN SOD INJ 40 MG/0.4 ML SYR SC SCH (16:55)
[2018-07-18] MEDS ORDERED: CEPACOL SORE THROAT LOZENGES PO PRN (17:00)
--- NOTE | 2018-07-18 17:07 | Progress Note ---
DATE: July 18, 2018 PULMONARY MEDICINE PROGRESS NOTE SUBJECTIVE: Ms. Brown was seen and examined at bedside. She continues to have low functional endurance. She is able to walk with walker, albeit very slowly. Low level wheezing still present, not totally resolved. Patient is eating though and she regained her appetite and she is having bowel movements. REVIEW OF SYSTEMS: No headaches. No rash. OBJECTIVE VITAL SIGNS: Afebrile. Vital signs noted per the chart record. GENERAL: No acute distress, alert and calm. HEENT: Normocephalic, atraumatic. NECK: Supple. Throat midline. LUNGS: Bilateral air entry with decreased breath sounds, few wheezes. CARDIOVASCULAR: S1, S2. No murmurs, rubs, or gallops. ABDOMEN: Soft, nontender. EXTREMITIES: No clubbing. No cyanosis. There is no edema. INTEGUMENT: No rash or purpura. LABS: Potassium 4.3, creatinine 0.7. IMPRESSION 1. Chronic obstructive pulmonary disease with exacerbation. 2. Chronic respiratory failure. 3. Low functional endurance weakness. 4. Former smoker, quit. PLAN: At this time, we wish to continue weaning steroids. . Continue bronchodilators. was added for comfort. DVT prophylaxis ongoing. Continue recommend rehabilitation transfer. Patient seems like a reasonable lung transplant candidate. Her window is closing very quickly so recommend aggressive transfer for inpatient rehab for rapid strengthening. Job#: [id number] [place]
--- NOTE | 2018-07-18 17:29 | Progress Note ---
DATE: July 18, 2018 CARDIOLOGY PROGRESS NOTE Patient at this time seen in the room. Patient complains of mild shortness of breath and wheezing present. Patient known for significant COPD, pulmonary hypertension, and also patient got systemic hypertension, blood pressure 140/80. She is on multiple antihypertensive medications. Patient at this time supposed to go to cardiac and pulmonary rehab program at [facility] bed is not available. Dr. Morris of Pulmonology has seen the patient. Dr. Pool will start seeing the patient tomorrow. Patient complains of sore throat. Patient was taking Zithromax, I believe she is allergic to it. Dr. Morris had already seen the patient and given some and at this time nurse again told me that she got some sore throat. I asked them to use the sore throat lozenges so she is going to get; otherwise, patient is stable cardiac mena. Job#: [id number] [place]
--- NOTE | 2018-07-18 17:55 | Progress Note ---
DATE: July 18, 2018 SUBJECTIVE: Mrs. Brown is seen on rounds today. She is doing relatively well. She can walk on distances, but she has hard-time breathing and that is limiting her ability to get around. This is to be expected given her pulmonary issues; however, we are trying to work on energy conservation techniques. OBJECTIVE VITAL SIGNS: Temperature 97.0, respirations of 20, heart rate of 78, blood pressure of 164/72. NECK: No JVD. Overall she is feeling same. HEART: Regular. LUNGS: Fair air entry. ABDOMEN: Nontender, nondistended. IMPRESSION AND PLAN: Clinically is doing a little bit better. Continue supportive care. Continue work on mobility. She is on energy conservation techniques, hopefully at the rehab center. Job#: [id number] [place]
--- NOTE | 2018-07-18 19:20 | NUR ---
Report received and walking rounds complete. Pt resting in bed and in no apparent distress. All safety measures ensured, bed alarm on, and pt call parker near. Pt encouraged to use call parker for assistance.
[2018-07-18] MEDS: TRAZODONE HCL 50 MG TAB PO SCH (20:34)
[2018-07-19] VITALS: BP 108/59
[2018-07-19 04:00] VITALS: BP 114/64
[2018-07-19] MEDS: IPRATROPIUM BROMIDE 0.02% 2.5 ML NEB NEB SCH ×2 (04:00→07:55)
[2018-07-19] MEDS: ALBUTEROL SULF 0.083% NEB SOLN 3 ML NEB NEB SCH ×2 (04:00→07:55)
--- NOTE | 2018-07-19 07:15 | NUR ---
Patient is awake and alertx3 in NAD. POC discussed. Call parker within reach.
--- NOTE | 2018-07-19 07:17 | NUR ---
Report given to oncoming nurse and walking rounds complete.
[2018-07-19 07:45] VITALS: BP 112/65
[2018-07-19] MEDS: ASPIRIN 81 MG ENTERIC COATED PO SCH (08:56)
[2018-07-19] MEDS: LOSARTAN POTASSIUM 100 MG TAB PO SCH (08:56)
[2018-07-19] MEDS: PREDNISONE 20 MG TAB PO SCH (08:57)
[2018-07-19] MEDS: AMLODIPINE BESYLATE 10 MG TAB PO SCH (08:57)
[2018-07-19] MEDS: ACETAMINOPHEN 325 MG TAB PO PRN (08:59)
[2018-07-19 11:30] VITALS: BP 112/65
[2018-07-19 11:34] VITALS: BP 98/54
[2018-07-19] MEDS ORDERED: PREDNISONE10 MG PO (13:31)
--- NOTE | 2018-07-19 14:45 | NUR ---
Per Dr. Morris and Dr. Pool patient may be discharged home today. body shop manager, Torie Parker notified of the out patient Pulmonary Rehab.
--- NOTE | 2018-07-19 15:20 | Discharge Summary ---
Ms. Brown is a 73-year-old woman with end-stage lung disease, who presented to the emergency room with the complaint of increasing shortness of breath. She actually present on July 14, 2018. HOSPITAL COURSE: Patient still recovering from hip surgery that she had one August of 2017. She noticed shortness of breath and did not know what to make of it. Initial evaluation suggested exacerbation of severe COPD. CK-MB was slightly elevated, but CK and troponin were normal. These labs were repeated and similar. It is not felt she has any active cardiac problems. She was seen by Dr. Morris who started her on prednisone. Patient made gradual improvement. Today, the patient is feeling better and is eager to be discharged to home. She is given prednisone 10 mg daily for the next 5 days, and her losartan increased to 100 mg daily. Amlodipine 10 mg daily. She will follow up with Dr. Morris in 1 week and with myself in 2 weeks. Will plan outpatient cardiac catheterization in the future. DISCHARGE DIAGNOSES 1. Exacerbation of severe chronic obstructive pulmonary disease. 2. Hypertension. 3. Lab error on cardiac enzymes with no cardiac event. JOSE OMER MD Job#: [id number] RI cc:Michael SILVA MD
[2018-07-19 15:28] VITALS: BP 96/53
--- NOTE | 2018-07-19 15:33 | NUR ---
manager athletics Torie Parker at bedside
[2018-07-19] MEDS ORDERED: LOSARTAN POTAS100 MG PO (15:38)
[2018-07-19] MEDS ORDERED: AMLODIPINE BESY10 MG PO (15:38)
--- NOTE | 2018-07-19 15:38 | Progress Note ---
DATE: July 19, 2018 PULMONARY MEDICINE PROGRESS NOTE SUBJECTIVE: Ms. Brown was seen and examined at bedside. She was able to walk greater than 400 feet today with physical therapy. She is feeling close to baseline. Patient remains with better breathing. She is still on oxygen of course. REVIEW OF SYSTEMS: No headaches. OBJECTIVE VITALS: Afebrile. Vital signs noted per electronic record. GENERAL: In no acute distress. HEENT: Normocephalic. NECK: Supple. LUNGS: Bilateral air entry. CARDIOVASCULAR: S1 and S2. ABDOMEN: Soft. EXTREMITIES: No edema. INTEGUMENT: No rash. IMPRESSION AND PLAN 1. Chronic obstructive pulmonary disease with exacerbation. 2. Chronic respiratory failure, chronic hypoxemia. 3. Coronary artery disease: Status post percutaneous coronary intervention. 4. Weakness/debility. Continue attempts to get the patient to rehab. front office manager will try to coordinate with pulmonary rehab department here to get the patient in. Patient will continue on steroid weaning. Bronchodilators to be continued. The patient furthermore will be forwarded for pulmonary transplant evaluation. I notified the patient I will forward to 2 institutions and she can go to the first one that calls her. Job#: [id number] HANK
--- NOTE | 2018-07-19 15:46 | NUR ---
DIANNE SPOKE TO PATIENT AT BEDSIDE REGARDING PLAN OF CARE. PATIENT HAS PORTABLE OXYGEN AT BEDSIDE. AND USES HOME OXYGEN THROUGH: [employer] [facility] SUPPLY [phone] DIANNE SPOKE TO PATIENT REGARDING OUTPATIENT PULMONARY REHAB. PATIENT INFORMED OF SERVICES AND REQUIREMENTS TO TRAVEL DUE TO OUTPATIENT BASIS. PATIENT VERBALLY AGREED AND SAID SHE CAN MAKE THE SESSIONS AND CHOSE [facility]. CHOICE LETTER SIGNED AND PLACED IN CHART. CLINICAL PACKET SENT TO [phone]. DIANNE LM WITH REYMUNDO AT OUTPATIENT PULMONARY REHAB REGARDING PATIENT DISCHARGE AND NEEDING TO BE SET UP.
--- NOTE | 2018-07-19 16:19 | NUR ---
IV dc'd, cath intact and small dressing applied. Written instructions and prescriptions given. Patient verbalized understanding. Awaiting ride.
--- NOTE | 2018-07-19 16:30 | NUR ---
Patient's discharged home with family in stable condition.
== END 2018-07-19 16:29 | disposition home or self-care (01) | DRG 191 ==
LOC: ER 06:15 → ERHOLD 08:29 → IMCU 10:23 → OBSVTOIN 07-16 13:54
PROVIDERS: ADMIT Internal Medicine Cardiovascular Disease; ATTEND Internal Medicine Cardiovascular Disease
DX: J44.1 Chronic obstructive pulmonary disease with (acute) exacerbation (principal); J96.11 Chronic respiratory failure with hypoxia; R94.31 Abnormal electrocardiogram [ECG] [EKG]; I10 Essential (primary) hypertension; I25.10 Atherosclerotic heart disease of native coronary artery without angina pectoris; I27.20 Pulmonary hypertension, unspecified; Z87.891 Personal history of nicotine dependence; Z95.1 Presence of aortocoronary bypass graft
CPT/HCPCS: 36415; 71045; 80053; 80061; 81001; 82550; 82553; 84484; 85025; 93005; 94640; 97139; 99284; G0378; J0456; J1650; J2405; J2930; J7512

== ENCOUNTER 2018-08-15 04:19 | Emergency (ER) | payer MEDICARE ==
[~2018-08-15] VITALS: Ht 171.4 cm; Wt 61.2 kg
[~2018-08-15 04:19] MED LIST changes: +ALPRAZOLAM0.5 MG PO; +AMLODIPINE BESY10 MG PO; +ASPIRIN EC81 MG PO; +BUDESONIDE0.25 MG/2 NEB; +LOSARTAN POTAS100 MG PO; +LOSARTAN POTASS50 MG PO; +PREDNISONE10 MG PO; +VENTOLIN HFA18 GM INH
--- OUTSIDE RECORDS SUMMARY | 2018-08-15 04:21 | XMS REPORT | Clinical Summary ---
Author Author [facility] Organization [facility] Address Unknown Phone Unavailable Care Team Providers Care Social Services Aide Name Role Phone Cam Crenshaw MD PCP Allergies Comments Active Allergy Reactions Severity Noted Date Sulfamethoxazole-Trimetho Swelling High 09/13/2014 prim Medications End Date Status Medication Sig Dispensed Refills Start Date Active pravastatin (PRAVACHOL) Take 20 mg by 0 20 MG tablet mouth nightly. Active hydroCHLOROthiazide Take 12.5 mg 0 (HYDRODIURIL) 12.5 MG by mouth tablet nightly. Active aspirin (ECOTRIN) 81 MG Take 81 mg by 0 enteric coated tablet mouth daily. Active guaiFENesin (MUCINEX) 600 Use twice a 0 mg tablet extended day per 7 release 12hr package instructions as needed. Is over the counter Active fluticasone-vilanterol Inhale 1 28 each 1 (BREO ELLIPTA) 200-25 inhalations 7 mcg/dose blister with once daily. device powder for inhalation Active Problems Problem Noted Date COPD exacerbation 09/05/2016 Essential hypertension 09/05/2016 Acute respiratory distress 08/30/2016 Social History Date Tobacco Use Types Packs/Day Years Used Former Smoker Alcohol Use Drinks/Week oz/Week Comments No Sex Assigned at Date Recorded Not on file Industry Job Start Date Occupation Not on file Not on file Not on file Travel End Travel History Travel Start No recent travel history available. Last Filed Vital Signs Not on file Plan of Treatment Health Maintenance Due Date Last Done Comments BREAST CANCER SCREENING 1997 COLON CANCER SCREENING 1997 SHINGLES VACCINES ( of 1997 2) PNEUMOCOCCAL 2012 POLYSACCHARIDE VACCINE AGE 65 AND OVER PNEUMOCOCCAL-13 2012 INFLUENZA VACCINE 02/17/2018 Results Not on fileafter 08/14/2017 Insurance Payer Benefit Subscriber ID Type Phone Address Plan / Group MEDICARE MEDICARE xxxxxxxxxx Medicare [place], [place] PART A AND B Advance Directives Patient has advance care planning documents on file. For more information, rohini gallagher contact: Flaquito Alegre [address] [place] [address]
--- OUTSIDE RECORDS SUMMARY | 2018-08-15 04:22 | XMS REPORT | Continuity of Care Document ---
Author Author [facility] Organization [facility] Address Unknown Phone Unavailable Care Team Providers Care Electric Fan Assembler Name Role Phone MD Keron, Duke Unavailable Insurance Providers Payer name Policy type / Coverage type Policy ID Covered constitution party ID Policy [place] MEDIC[place]: [employer] Encounters Encounter Performer Location Date Lab Report Duke Cabrales MD [facility] Colorectal Surgery Oct 26, 2014 Problems Problem Effective Dates Problem Status BLEEDING, RECTAL/ANAL Oct 17, 2014 Active CARCINOMA, RECTOSIGMOID JUNCTION Oct 17, 2014 Active CHANGE IN BOWEL HABITS Oct 17, 2014 Active Procedures Date Description Comments Oct 13, 2014 smoking status Former smoker Medications Medication Instructions Start Date Status ASPIRIN EC TBEC Oct 13, 2014 Active Vital Signs Date Description Test Result Oct 13, 2014 weight E&M - 3141-9 WEIGHT 146 lb Oct 13, 2014 temperature E&M TEMPERATURE 98.5 deg f Oct 13, 2014 pulse rate E&M - 8867-4 PULSE RATE 75 /min Oct 13, 2014 blood pressure, systolic - 8480-6 BP SYSTOLIC 156 mm Hg Oct 13, 2014 blood pressure, diastolic - 8462-4 BP DIASTOLIC 83 mm Hg Oct 13, 2014 height E&M - 8302-2 HEIGHT 67.5 in Results Date Description Test Name Value Reference Interpretation Status Oct 26, 2014 carcinoembryonic antigen CEA 1.6 ng/mL 0.0-3.0
--- OUTSIDE RECORDS SUMMARY | 2018-08-15 04:22 | XMS REPORT | Continuity of Care Document ---
Author Author [facility] Organization [facility] Address Unknown Phone Unavailable Care Team Providers Care Keno Clerk Name Role Phone MD Keron, Duke Unavailable Insurance Providers Payer name Policy type / Coverage type Policy ID Covered democrat ID Policy [place] MEDIC[place]: [id number] Encounters Encounter Performer Location Date Office Visit Duke Cabrales MD [facility] Colorectal Surgery November 30, 2014 Problems Problem Effective Dates Problem Status BLEEDING, RECTAL/ANAL Oct 17, 2014 Active CARCINOMA, RECTOSIGMOID JUNCTION Oct 17, 2014 Active CHANGE IN BOWEL HABITS Oct 17, 2014 Active Procedures Date Description Comments Oct 13, 2014 smoking status Former smoker November 30, 2014 smoking status Former smoker Medications Medication [...] height E&M - 8302-2 HEIGHT 67.5 in November 30, 2014 height E&M - 8302-2 HEIGHT 67.5 in November 30, 2014 temperature E&M TEMPERATURE 97.8 deg f November 30, 2014 pulse rate E&M - 8867-4 PULSE RATE 65 /min November 30, 2014 blood pressure, systolic - 8480-6 BP SYSTOLIC 119 mm Hg November 30, 2014 blood pressure, diastolic - 8462-4 BP DIASTOLIC 77 mm Hg Results Date Description Test Name Value Reference Interpretation Status Oct 26, 2014 carcinoembryonic antigen CEA 1.6 ng/mL 0.0-3.0
--- OUTSIDE RECORDS SUMMARY | 2018-08-15 04:22 | XMS REPORT | Clinical Summary ---
Author Author [facility] Address Unknown Phone Unavailable Care Team Providers Care Pneumatic Tube Repairer Name Role Phone Shukri Estrada PCP Allergies Comments Active Allergy Reactions Severity Noted Date Sulfamethoxazole-Trimetho Swelling High 09/13/2014 prim Medications End Date Status Medication Sig Dispensed Refills Start Date Active amLODIPine (NORVASC) 5 MG Take 5 mg by 0 tablet mouth daily. Active losartan (COZAAR) 50 MG Take 50 mg by 0 tablet mouth daily. Active acetaminophen (TYLENOL) Take 650 mg 0 325 MG tablet by mouth every 6 (six) hours as needed for Pain. Active aspirin 81 MG EC tablet Take 81 mg by 0 mouth daily. Active ALPRAZolam (XANAX) 0.5 MG Take 0.5 mg 0 tablet by mouth every night as needed for Anxiety. 08/04/2018 Discontinued lisinopril-hydrochlorothi Take 1 tablet 0 azide by mouth 2 (PRINZIDE,ZESTORETIC) (two) times 20-12.5 mg per tablet daily. 08/04/2018 Discontinued cloNIDine HCl (CATAPRES) Take 0.2 mg 0 0.2 MG tablet by mouth 3 (three) times daily. 08/04/2018 Discontinued prasugrel (EFFIENT) 5 mg Take 1 tablet 5 tablet 3 tablet (5 mg total) 5 by mouth daily. Active Problems Problem Noted Date CAD (coronary artery disease) 09/13/2014 Renal artery stenosis 09/13/2014 Encounters Care Team Description Date Type Specialty Jose Luna MD Centrilobular emphysema (HCC) 08/04/2018 Hospital Respiratory Therapy Encounter Jose Luna MD Centrilobular emphysema (HCC) 08/04/2018 Hospital Respiratory Therapy Encounter Jose Luna MD Centrilobular emphysema (HCC) 08/04/2018 Hospital Respiratory Therapy Encounter Jose Luna MD 08/04/2018 Hospital Radiology Encounter Jose Luna MD Dronavalli, Goutham, MD Pre-transplant evaluation for lung transplant (Primary Dx); Centrilobular emphysema (HCC); Physical deconditioning; Coronary artery disease involving nome coronary artery of nome heart without angina pectoris 08/04/2018 Initial consult Transplant Jose Luna MD Centrilobular emphysema (HCC) 08/04/2018 Orders Only Transplant Hudson Mayen RN Lung Transplant Pre-evaluation 07/26/2018 Telephone Transplant Camille Mcleod 07/23/2018 Abstract Transplant after 08/14/2017 Family History Medical History Relation Name Comments Cancer Father Cancer Mother Heart disease Mother Kidney disease Mother Relation Name Status Comments Father Mother Social History Date Tobacco Use Types Packs/Day Years Used Former Smoker Smokeless Tobacco: Never Used Alcohol Use Drinks/Week oz/Week Comments No Sex Assigned at Date Recorded Not on file Industry Job Start Date Occupation Not on file Not on file Not on file Travel End Travel History Travel Start No recent travel history available. Last Filed Vital Signs Time Taken Vital Sign Reading 08/04/2018 12:36 PM STRATEGIC BUYER Blood Pressure 131/69 08/04/2018 3:54 PM STRATEGIC BUYER Pulse 99 08/04/2018 12:36 PM STRATEGIC BUYER Temperature 37 C (98.6 F) 08/04/2018 12:36 PM STRATEGIC BUYER Respiratory Rate 20 08/04/2018 3:54 PM STRATEGIC BUYER Oxygen Saturation 92% - Inhaled Oxygen - Concentration 08/04/2018 12:36 PM STRATEGIC BUYER Weight 62.1 kg (136 lb 14.4 oz) 08/04/2018 12:36 PM STRATEGIC BUYER Height 170.2 cm (5' 7") 08/04/2018 12:36 PM STRATEGIC BUYER Body Mass Index 21.44 Plan of Treatment Not on file Implants Device Identifier Shelf Expiration Date Model / Serial / Lot Implanted Type Area Manufactur er 11/12/2015 [id number] / / [id number] Promus Oximity Implanted: Qty: 1 on 09/13/2014 SCIENTIFIC Procedures Comments Procedure Name Priority Date/Time Associated Diagnosis PULMONARY FUNCTION - SCAN 08/12/2018 11:10 AM STRATEGIC BUYER 6 MINUTE WALK(FOR LUNG Routine 08/04/2018 Centrilobular emphysema TRANSPLANT ONLY) 3:28 PM STRATEGIC BUYER ([facility]) DLCO (SINGLE BREATH Routine 08/04/2018 Centrilobular emphysema DIFFUSION) 3:28 PM STRATEGIC BUYER ([facility]) LUNG VOLUMES Routine 08/04/2018 Centrilobular emphysema 3:28 PM STRATEGIC BUYER ([facility]) CT CHEST WITHOUT IV Routine 08/04/2018 Centrilobular emphysema CONTRAST 2:41 PM STRATEGIC BUYER ([facility]) after 08/14/2017 Results * PULMONARY FUNCTION - SCAN (08/12/2018 11:10 AM STRATEGIC BUYER) Narrative Performed At * 6 MINUTE WALK(FOR LUNG TRANSPLANT ONLY) (08/04/2018 3:28 PM STRATEGIC BUYER) Narrative Performed At Tejinder Navas, [place] MIXER OPERATOR, [facility] 08/04/20184:20 PM [facility] PFT CHARTING REPORT Infection Control/Hand Hygiene procedures followed throughout the encounter with patient: Yes Patient Identification Method: Patient name verified on armband, and Medical record on armband, Is the order complete?: Yes Account ID#: [id number] Patient Name: King Brown Birthdate: 1945 Age: 73 y.o.Sex: female Admission Date: 08/04/2018Patient Status: Outpatient Reasons/Symptom for having the Test?: a history/complaint of a dyspnea Type of study/treatment ordered by physician: Lung volumes with bronchodilator(s), Single Breath DLCO and 6 minute walk Lab Results Component Value Date HGB 11.7 (L) 09/17/2014 Ranges: Adult Male 13 - 16.8 g/dlAdult Female 12 - 15 g/dl 6 Minute Walk (read only) 08/04/2018 08/04/2018 08/04/2018 BP Pre - - Start Time -3:48 PM - [place] Perceived Exertion Scale Pre - 2 - Ordering Physician - Jeremy - Interval - S 12 Pulse 91 89 99 SpO2 95 99 92 Supplemental O2 Flow Activity - 0 2 Activity - Standing Walking Total Distance (in mts) - - 192 BP Post - - Tank Pulled? - - N Tank Carried? - - Y End Time - -3:54 PM Eugene Perceived Exertion Scale Post - - 2 Study Date: 08/04/2018Study Time: 1528 ASSESSMENT History & Physical Mode of Arrival: Ambulatory Pulse: 79Resp: 18SPO2: 98 %On 3 LPM/ FiO2 Pain Assessment Pain:None TESTING/THERAPEUTICS Medications ordered or required for procedure: Albuterol, PT EDUCATION/INSTRUCTIONS Barriers to learning: No known barriers to learning. Learning need identified: Yes, Patient/Family/Guradian was informed of the ordered study by the physician Barriers to performing study or treatment: Patient has no known disability to perform the study or treatment. DISCHARGE The study was completed in accordance with the physician's order and patient released from the lab without adverse outcome. * Lung volumes (08/04/2018 3:28 PM STRATEGIC BUYER) Narrative Performed At Tejinder Navas RRT, [facility] 08/04/20184:20 PM [facility] PFT CHARTING REPORT Infection Control/Hand Hygiene procedures followed throughout the encounter with patient: Yes Patient Identification Method: Patient name verified on armband, and Medical record on armband, Is the order complete?: Yes Account ID#: [id number] Patient Name: King Brown Birthdate: 1945 Age: 73 y.o.Sex: female Admission Date: 08/04/2018Patient Status: Outpatient Reasons/Symptom for having the Test?: a history/complaint of a dyspnea Type of study/treatment ordered by physician: Lung volumes with bronchodilator(s), Single Breath DLCO and 6 minute walk Lab Results Component Value Date HGB 11.7 (L) 09/17/2014 Ranges: Adult Male 13 - 16.8 g/dlAdult Female 12 - 15 g/dl 6 Minute Walk (read only) 08/04/2018 08/04/2018 08/04/2018 BP Pre - - Start Time -3:48 PM - Eugene Perceived Exertion Scale Pre - 2 - Ordering Physician Katina Ambriz Interval - S 12 Pulse 91 89 99 SpO2 95 99 92 Supplemental O2 Flow Activity - 0 2 Activity - Standing Walking Total Distance (in mts) - - 192 BP Post - - Tank Pulled? - - N Tank Carried? - - Y End Time - -3:54 PM Eugene Perceived Exertion Scale Post - - 2 Study Date: 08/04/2018Study Time: 1528 ASSESSMENT History & Physical Mode of Arrival: Ambulatory Pulse: 79Resp: 18SPO2: 98 %On 3 LPM/ FiO2 Pain Assessment Pain:None TESTING/THERAPEUTICS Medications ordered or required for procedure: Albuterol, PT EDUCATION/INSTRUCTIONS Barriers to learning: No known barriers to learning. Learning need identified: Yes, Patient/Family/Guradian was informed of the ordered study by the physician Barriers to performing study or treatment: Patient has no known disability to perform the study or treatment. DISCHARGE The study was completed in accordance with the physician's order and patient released from the lab without adverse outcome. * DLCO (single breath diffusion) (08/04/2018 3:28 PM STRATEGIC BUYER) [facility]ative [facility] 08/04/20184:20 PM [facility] PFT CHARTING REPORT Infection Control/Hand Hygiene procedures followed throughout the encounter with patient: Yes Patient Identification Method: Patient name verified on armband, and Medical record on armband, Is the order complete?: Yes Account ID#: [id number] Patient Name: King Brown Birthdate: 1945 Age: 73 y.o.Sex: female Admission Date: 08/04/2018Patient Status: Outpatient Reasons/Symptom for having the Test?: a history/complaint of a dyspnea Type of study/treatment ordered by physician: Lung volumes with bronchodilator(s), Single Breath DLCO and 6 minute walk Lab Results Component Value Date HGB 11.7 (L) 09/17/2014 Ranges: Adult Male 13 - 16.8 g/dlAdult Female 12 - 15 g/dl 6 Minute Walk (read only) 08/04/2018 08/04/2018 08/04/2018 BP Pre - - Start Time -3:48 PM - [place] Perceived Exertion Scale Pre - 2 - Ordering Physician Katina Luna - Interval - S 12 Pulse 91 89 99 SpO2 95 99 92 Supplemental O2 Flow Activity - 0 2 Activity - Standing Walking Total Distance (in mts) - - 192 BP Post - - Tank Pulled? - - N Tank Carried? - - Y End Time - -3:54 PM [place] Perceived Exertion Scale Post - - 2 Study Date: 08/04/2018Study Time: 1528 ASSESSMENT History & Physical Mode of Arrival: Ambulatory Pulse: 79Resp: 18SPO2: 98 %On 3 LPM/ FiO2 Pain Assessment Pain:None TESTING/THERAPEUTICS Medications ordered or required for procedure: Albuterol, PT EDUCATION/INSTRUCTIONS Barriers to learning: No known barriers to learning. Learning need identified: Yes, Patient/Family/Guradian was informed of the ordered study by the physician Barriers to performing study or treatment: Patient has no known disability to perform the study or treatment. DISCHARGE The study was completed in accordance with the physician's order and patient released from the lab without adverse outcome. * CT chest without IV contrast (08/04/2018 2:41 PM STRATEGIC BUYER) Narrative Performed At FINAL REPORT [place] CT of the chest, without contrast Clinical History:Emphysema copd, emphysema Technique: CT of the chest is performed without intravenous contrast administration. This exam was performed according to our departmental dose optimization program which includes automated exposure control, adjustment of the mA and/or kV according to patient's size and/or use of iterative reconstructive technique. Comparison Film:July 18, 2016 Discussion: Visualized thyroid gland is unremarkable. No supraclavicular, axillary, mediastinal or hilar lymphadenopathy. Heart is normal in size, no pericardial effusion. A small hiatal hernia is present. There is advanced vascular calcification. There is kowv-cr-pnlajkfa emphysema. Mild bronchial wall thickening is noted, without significant bronchiectasis. A few centrilobular micronodules in the right lower lobe likely reflect infectious or inflammatory process. There is no discrete consolidation, or mass. Stable mild scarring or atelectasis in the lingula and middle lobe. There is no pleural effusion. Osseous structures demonstrate mild degenerative changes. No suspicious bony lesion. Partially imaged upper abdomen is unremarkable. Impression: Lmdu-br-inufdchb emphysema. Mild bronchial wall thickening. A few centrilobular micronodules in the right lower lobe likely reflect infectious/inflammatory small airways disease. Atherosclerotic disease. Small hiatal hernia. Signed: Carl Avendano MD Report Verified Date/Time:08/04/2018 16:26:58 Reading Location: [facility] [id number] [facility] Consult Reading Room Procedure Note Interface, External Ris In - 08/04/2018 4:29 PM STRATEGIC BUYER FINAL REPORT CT of the chest, without contrast Clinical History: Emphysema copd, emphysema Technique: CT of the chest is performed without intravenous contrast administration. This exam was performed according to our departmental dose optimization program which includes automated exposure control, adjustment of the mA and/or kV according to patient's size and/or use of iterative reconstructive technique. Comparison Film: July 18, 2016 Discussion: Visualized thyroid gland is unremarkable. No supraclavicular, axillary, mediastinal or hilar lymphadenopathy. Heart is normal in size, no pericardial effusion. A small hiatal hernia is present. There is advanced vascular calcification. There is hofk-rp-kjkbvmem emphysema. Mild bronchial wall thickening is noted, without significant bronchiectasis. A few centrilobular micronodules in the right lower lobe likely reflect infectious or inflammatory process. There is no discrete consolidation, or mass. Stable mild scarring or atelectasis in the lingula and middle lobe. There is no pleural effusion. Osseous structures demonstrate mild degenerative changes. No suspicious bony lesion. Partially imaged upper abdomen is unremarkable. Impression: Bzhn-he-xiicmdxc emphysema. Mild bronchial wall thickening. A few centrilobular micronodules in the right lower lobe likely reflect infectious/inflammatory small airways disease. Atherosclerotic disease. Small hiatal hernia. Signed: Carl Avendano MD Report Verified Date/Time: 08/04/2018 16:26:58 Reading Location: [address] Consult Reading Room Performing Organization Address City/State/Zipcode Phone Number GE RIS after 08/14/2017 Insurance Payer Benefit Subscriber ID Type Phone Address Plan / Group MEDICARE MEDICARE A xxxxxxxxxx Medicare B Advance Directives For more information, please contact: [facility] [address] [place] [id number] Date Inactivated Comments Code Status Date Activated 09/13/2014 2:35 PM Full Code 09/13/2014 7:00 AM This code status was determined by: Patient
--- OUTSIDE RECORDS SUMMARY | 2018-08-15 04:22 | XMS REPORT | Continuity of Care Document ---
Author Author [facility] Address Unknown Phone Unavailable Problems Problem Status Onset Date Classification Date Reported Comments Source BLEEDING, RECTAL/ANAL Active 10/17/2014 Condition 11/30/2014 Medical Group CARCINOMA, RECTOSIGMOID JUNCTION Active 10/17/2014 Condition 11/30/2014 Medical [facility] CHANGE IN BOWEL HABITS Active 10/17/2014 Condition 11/30/2014 Medical [facility] Medications Medication Details Route Status Patient Instructions Ordering Provider Order Date Source ASPIRIN EC TBEC Active 10/13/2014 [facility] Allergies, Adverse Reactions, Alerts Substance Category Reaction Severity Reaction type Status Date Reported Comments Source Immunizations Immunization Date Given Site Status Last Updated Comments Source Results Order Name Results Value Reference Range Date Interpretation Comments Source Serology CEA 1.6 ng/mL 0.0 - 3.0 10/26/2014 Medical [facility] Vital Signs Vital Sign Value Date Comments Source Height 67.5 11/30/2014 Medical Group Temperature Oral (F) 97.8 F 11/30/2014 Medical [facility] Heart Rate 65 11/30/2014 Medical Group Systolic (mm Hg) 119 11/30/2014 Medical Group Diastolic (mm Hg) 77 11/30/2014 Medical [facility] Weight 146 10/13/2014 Medical [facility] Temperature Oral (F) 98.5 F 10/13/2014 Medical [facility] Heart Rate 75 10/13/2014 Medical Group Systolic (mm Hg) 156 10/13/2014 Medical Group Diastolic (mm Hg) 83 10/13/2014 Medical [facility] Height 67.5 10/13/2014 Medical [facility] Encounters Location Location Details Encounter Type Encounter Number Reason For Visit Attending Provider ADM Date DC Date Status Source [facility] Colorectal Surgery Office Visit [id number] Duke Cabrales MD 10/13/2014 10/13/2014 [facility] Colorectal Surgery Lab Report [id number] Duke Cabrales MD 10/26/2014 10/26/2014 [facility] Lab Report [id number] Duke Cabrales MD 11/13/2014 11/13/2014 [facility] Colorectal Surgery Office Visit [id number] Duke Cabrales MD 11/30/2014 11/30/2014 [facility] Procedures Procedure Code Date Perfomer Comments Source
--- OUTSIDE RECORDS SUMMARY | 2018-08-15 04:22 | XMS REPORT | Continuity of Care Document ---
Author Author [facility] Organization [facility] Address Unknown Phone Unavailable Care Team Providers Care Orthotic Assistant Name Role Phone MD Keron, Duke Unavailable Insurance Providers Payer name Policy type / Coverage type Policy ID Covered alliance party ID Policy [place] [employer] Encounters Encounter Performer Location Date Office Visit Duke Cabrales MD [facility] Colorectal Surgery Oct 13, 2014 Problems Problem Effective Dates Problem Status [...]
--- OUTSIDE RECORDS SUMMARY | 2018-08-15 04:22 | XMS REPORT | Continuity of Care Document ---
Author Author [facility] Organization [facility] Address Unknown Phone Unavailable Care Team Providers Care Celebrity Manager Name Role Phone MD Keron, Duke Unavailable Insurance Providers Payer name Policy type / Coverage type Policy ID Covered alliance party ID Policy [place]: [employer] Encounters Encounter Performer Location Date Lab Report Duke Cabrales MD [facility] Nov 13, 2014 Problems Problem Effective Dates Problem [...]
[2018-08-15] MEDS ORDERED: ULTRAM50 MG PO (04:49)
[2018-08-15] MEDS ORDERED: PREDNISONE20 MG PO (04:59)
--- NOTE | 2018-08-15 06:48 | NUR ---
RECEIVED REPORT FROM OFF GOING NURSE. PATIENT IN ROOM IN BED. AWAKE AND ALERT. NO S/S OF ACUTE DISTRESS. RESP EVEN AND NONLABORED. PENDING RADIOLOGY REPORTS FOR DISPO.
--- NOTE | 2018-08-15 14:43 | Diagnostic Imaging Report ---
EXAMINATION: CHEST SINGLE (PORTABLE) INDICATION: copd COMPARISON: 09/14/2017 FINDINGS: AP view TUBES and LINES: None. LUNGS: Lungs are well inflated. Lungs are clear. There is no evidence of pneumonia or pulmonary edema. PLEURA: No pleural effusion or pneumothorax. HEART AND MEDIASTINUM: The cardiomediastinal silhouette is unremarkable. There are atherosclerotic calcifications within the aorta. BONES AND SOFT TISSUES: No acute osseous lesion. Stable left humeral head deformity. Soft tissues are unremarkable. UPPER ABDOMEN: No free air under the diaphragm. IMPRESSION: No acute thoracic abnormality. Signed by: DR. Ronak Lozano MD on 08/15/2018 6:13 AM
== END 2018-08-15 09:29 | disposition home or self-care (01) ==
LOC: ER 04:19
DX: R06.00 Dyspnea, unspecified (principal); J44.1 Chronic obstructive pulmonary disease with (acute) exacerbation
CPT/HCPCS: 71045; 99284

== ENCOUNTER 2018-10-01 14:25 | Inpatient (IN) | payer MEDICARE ==
[~2018-10-01] VITALS: Ht 170.2 cm; Wt 55.8 kg
[~2018-10-01 14:25] MED LIST changes: +ULTRAM50 MG PO
--- OUTSIDE RECORDS SUMMARY | 2018-10-01 14:28 | XMS REPORT | Clinical Summary ---
Author Author [facility] Organization [facility] Address Unknown Phone Unavailable Care Team Providers Care Vehicle Safety Inspector Name Role Phone Cam Crenshaw MD PCP [...] 1997 COLON CANCER SCREENING 1997 SHINGLES VACCINES (#1) 1997 65+ PNEUMOCOCCAL VACCINE 2012 (1 of 2 - PCV13) PNEUMOCOCCAL 2012 POLYSACCHARIDE VACCINE AGE 65 AND OVER INFLUENZA VACCINE 02/17/2018 Results Not on fileafter 09/30/2017 Insurance Payer Benefit Subscriber ID Type Phone Address Plan / Group MEDICARE MEDICARE xxxxxxxxxx Medicare [place], [place] PART A AND B Advance Directives Patient has advance care planning documents on file. For more information, rohini gallagher contact: [address] Alegre [address] [place] [address]
--- OUTSIDE RECORDS SUMMARY | 2018-10-01 14:28 | XMS REPORT | Clinical Summary ---
Author Author [facility]ASHIRA [facility] Address Unknown Phone Unavailable Care Team Providers Care Care Assistant Name Role Phone Shukri Estrada PCP Allergies [...] (HCC); Physical deconditioning; Coronary artery disease involving the [place] coronary artery of the [place] heart without angina pectoris 08/04/2018 Initial consult Transplant Jose Luna MD Centrilobular emphysema (HCC) 08/04/2018 Orders Only Transplant Hudson Mayen RN Lung Transplant Pre-evaluation 07/26/2018 Telephone Transplant Camille Mcleod 07/23/2018 Abstract Transplant after 09/30/2017 Family History Medical History Relation Name Comments [...] Taken Vital Sign Reading 08/04/2018 12:36 PM CUFF MAKER Blood Pressure 131/69 08/04/2018 3:54 PM CUFF MAKER Pulse 99 08/04/2018 12:36 PM CUFF MAKER Temperature 37 C (98.6 F) 08/04/2018 12:36 PM CUFF MAKER Respiratory Rate 20 08/04/2018 3:54 PM CUFF MAKER Oxygen Saturation 92% - Inhaled Oxygen - Concentration 08/04/2018 12:36 PM CUFF MAKER Weight 62.1 kg (136 lb 14.4 oz) 08/04/2018 12:36 PM CUFF MAKER Height 170.2 cm (5' 7") 08/04/2018 12:36 PM CUFF MAKER Body Mass Index 21.44 Plan of Treatment Not on file Implants Device Identifier Shelf Expiration Date Model / Serial / Lot Implanted Type Area Manufactur er 11/12/2015 [id number] / / [id number] Implanted: Qty: 1 on 09/13/2014 SCIENTIFIC Procedures Comments Procedure Name Priority Date/Time Associated Diagnosis PULMONARY FUNCTION - SCAN 08/12/2018 11:10 AM CUFF MAKER 6 MINUTE WALK(FOR LUNG Routine 08/04/2018 Centrilobular emphysema TRANSPLANT ONLY) 3:28 PM CUFF MAKER ([facility]) DLCO (SINGLE BREATH Routine 08/04/2018 Centrilobular emphysema DIFFUSION) 3:28 PM CUFF MAKER ([facility]) LUNG VOLUMES Routine 08/04/2018 Centrilobular emphysema 3:28 PM CUFF MAKER ([facility]) CT CHEST WITHOUT IV Routine 08/04/2018 Centrilobular emphysema CONTRAST 2:41 PM CUFF MAKER ([facility]) after 09/30/2017 Results * PULMONARY FUNCTION - SCAN (08/12/2018 11:10 AM CUFF MAKER) Narrative Performed At * 6 MINUTE WALK(FOR LUNG TRANSPLANT ONLY) (08/04/2018 3:28 PM CUFF MAKER) Narrative Performed At Tejinder Navas, SUPERVISOR [employer], [facility] 08/04/20184:20 PM [facility] PFT CHARTING REPORT Infection Control/Hand Hygiene procedures followed throughout the encounter with patient: Yes Patient Identification Method: Patient name verified on armband, and Medical record on armband, Is the order complete?: Yes Account ID#: [id number] Patient Name: King Brown Birthdate: 1945 Age: [...] outcome. * Lung volumes (08/04/2018 3:28 PM CUFF MAKER) Narrative Performed At Tejinder Navas RRT, [facility] 08/04/20184:20 PM [facility] PFT CHARTING REPORT Infection Control/Hand Hygiene procedures followed throughout the encounter with patient: Yes Patient Identification Method: Patient name verified on armband, and Medical record on armband, Is the order complete?: Yes Account ID#: [id number] Patient Name: King Brown Birthdate: 1945 Age: [...] DLCO (single breath diffusion) (08/04/2018 3:28 PM CUFF MAKER) [facility]ative [facility]NIC[facility] 08/04/20184:20 PM [facility] PFT CHARTING REPORT Infection Control/Hand Hygiene procedures followed throughout the encounter with patient: Yes Patient Identification Method: Patient name verified on armband, and Medical record on armband, Is the order complete?: Yes Account ID#: [id number] Patient Name: King Brown Birthdate: 1945 Age: [...] chest without IV contrast (08/04/2018 2:41 PM CUFF MAKER) Narrative Performed At FINAL REPORT [facility] CT of the chest, without contrast Clinical [...] There is advanced vascular calcification. There is vlbv-on-kuurelrx emphysema. Mild bronchial wall thickening is noted, [...] Partially imaged upper abdomen is unremarkable. Impression: Sune-ev-vmdkirul emphysema. Mild bronchial wall thickening. A few centrilobular micronodules in the right lower lobe likely reflect infectious/inflammatory small airways disease. Atherosclerotic disease. Small hiatal hernia. Signed: Carl Avendano MD Report Verified Date/Time:08/04/2018 16:26:58 Reading Location: [facility] C013X [facility] Consult Reading Room Procedure Note Interface, External Ris In - 08/04/2018 4:29 PM CUFF MAKER FINAL REPORT CT of the chest, without [...] There is advanced vascular calcification. There is ohfx-lg-hmgicfxn emphysema. Mild bronchial wall thickening is noted, [...] Partially imaged upper abdomen is unremarkable. Impression: Kjuu-jv-ffpebbnc emphysema. Mild bronchial wall thickening. A few centrilobular micronodules in the right lower lobe likely reflect infectious/inflammatory small airways disease. Atherosclerotic disease. Small hiatal hernia. Signed: Carl Avendano MD Report Verified Date/Time: 08/04/2018 16:26:58 Reading Location: [address] Consult Reading Room Performing Organization Address City/State/Zipcode Phone Number GE RIS after 09/30/2017 Insurance Payer Benefit Subscriber ID Type Phone Address Plan / Group MEDICARE MEDICARE A xxxxxxxxxxx Medicare B Advance Directives For more information, please contact: [facility] [address] [place] [address] Date Inactivated Comments Code Status Date Activated 09/13/2014 2:35 PM Full Code 09/13/2014 7:00 AM This code status was determined by: Patient
[2018-10-01] MEDS ORDERED: METHYLPREDNISOLONE SOD SUCC 125 MG/2ML VIAL IV STA (14:55)
[2018-10-01] MEDS ORDERED: ALBUTEROL/IPRATROPIUM 3 ML NEB NEB ONE ×2 (15:00→18:30)
[2018-10-01 15:26] LABS: BASOPHILS # (AUTO) 0.1 (0.0-0.1); BASOPHILS % 1.5 % (0.0-1.0); EOSINOPHILS # (AUTO) 1.1 (0.0-0.4); EOSINOPHILS % 14.3 % (0.0-6.0); HEMATOCRIT 39.3 % (34.2-44.1); HEMOGLOBIN 12.7 g/dL (12.0-16.0); LYMPHOCYTES # (AUTO) 1.4 (1.0-3.2); LYMPHOCYTES % 19.3 % (18.0-39.1); MEAN CORPUSCULAR HEMOGLOBIN 30.3 pg (28-32); MEAN CORPUSCULAR HGB CONC 32.3 g/dL (31-35); MEAN CORPUSCULAR VOLUME 93.8 fL (81-99); MONOCYTES # (AUTO) 0.3 (0.2-0.8); MONOCYTES % 4.6 % (4.4-11.3); NEUTROPHILS # (AUTO) 4.4 (2.1-6.9); PLATELET COUNT 257 x10e3/uL (140-360); RED BLOOD COUNT 4.19 x10e6/uL (3.6-5.1); RED CELL DISTRIBUTION WIDTH 14.7 % (11.7-14.4)
[2018-10-01 15:36] LABS: INR 0.83; PROTHROMBIN TIME 11.9 seconds (11.9-14.5)
[2018-10-01 15:37] LABS: PARTIAL THROMBOPLASTIN TIME 25.1 seconds (23.8-35.5)
[2018-10-01 15:49] LABS: ALANINE AMINOTRANSFERASE 15 IU/L (0-55); ALBUMIN 3.6 g/dL (3.5-5.0); ALBUMIN/GLOBULIN RATIO 1.3 (0.8-2.0); ALKALINE PHOSPHATASE 65 IU/L (40-150); ANION GAP 14.2 mmol/L (8-16); BLOOD UREA NITROGEN 13 mg/dL (7-26); BUN/CREATININE RATIO 17 (6-25); CARBON DIOXIDE 30 mmol/L (22-29); CHLORIDE 102 mmol/L (98-107); CREATINE KINASE 94 IU/L (29-168); CREATININE, SERUM 0.75 mg/dL (0.57-1.11); EST GLOMERULAR FILTRATION RATE > 60 ML/MIN (60-); GLUCOSE 121 mg/dL (74-118); MAGNESIUM 1.9 MG/DL (1.3-2.1); POTASSIUM 3.2 mmol/L (3.5-5.1); SODIUM 143 mmol/L (136-145)
--- NOTE | 2018-10-01 16:53 | NUR ---
pt states she feels like she is breathing better
--- NOTE | 2018-10-01 17:25 | Diagnostic Imaging Report ---
EXAMINATION: CHEST SINGLE (PORTABLE) INDICATION: Shortness of breath COMPARISON: 09/14/2017 and 08/15/2018 chest x-ray FINDINGS: AP view TUBES and LINES: None. LUNGS: Lungs are hyperinflated compatible with COPD. Lungs are clear. There is no evidence of pneumonia or pulmonary edema. PLEURA: No pleural effusion or pneumothorax. HEART AND MEDIASTINUM: The cardiomediastinal silhouette is unremarkable. Prominent right hilum again noted. There are atherosclerotic calcifications within the aorta. BONES AND SOFT TISSUES: No acute osseous lesion. Stable left humeral head deformity. Soft tissues are unremarkable. IMPRESSION: No acute thoracic abnormality with findings of COPD. Signed by: Dr. Jaylan Bruno DO on 10/01/2018 5:22 PM
--- NOTE | 2018-10-01 18:01 | NUR ---
PT STATES SHE NORMALLY TAKES HER BP MEDS AT NIGHT
[2018-10-01 18:37] LABS: CLARITY,URINE CLOUDY (CLEAR); COLOR,URINE YELLOW (YELLOW); LEUKOCYTE ESTERASE ,URINE TRACE (NEGATIVE)
[2018-10-01 18:38] LABS: BILIRUBIN,URINE NEGATIVE (NEGATIVE); KETONES,URINE TRACE (NEGATIVE); NITRITE,URINE POSITIVE (NEGATIVE); PROTEIN,URINE DIPSTICK NEGATIVE (NEGATIVE); URINE UROBILINOGEN 0.2 mg/dL (0.2 - 1)
[2018-10-01 19:18] LABS: AMORPHOUS SEDIMENT,URINE MODERATE (FEW); BACTERIA,URINE MANY /HPF; EPITHELIAL CELLS,URINE MODERATE /LPF; RBC,URINE 0-5 /HPF (0-5)
--- OUTSIDE RECORDS SUMMARY | 2018-10-01 19:50 | XMS REPORT | Clinical Summary ---
Author Author [facility] Address Unknown Phone Unavailable Care Team Providers Care Correspondence Renew Clerk Name Role Phone Cam Crenshaw MD PCP [...] more information, rohini gallagher contact: Flaquito Alegre [address] [place] [address]
--- OUTSIDE RECORDS SUMMARY | 2018-10-01 19:50 | XMS REPORT | Clinical Summary ---
Author Author [facility]IR[facility] Address Unknown Phone Unavailable Care Team Providers Care Sternman Name Role Phone Shukri Estrada PCP Allergies [...] (HCC); Physical deconditioning; Coronary artery disease involving [place] coronary artery of [place] heart without angina pectoris 08/04/2018 Initial consult [...] Taken Vital Sign Reading 08/04/2018 12:36 PM PRODUCTION ROUSTABOUT Blood Pressure 131/69 08/04/2018 3:54 PM PRODUCTION ROUSTABOUT Pulse 99 08/04/2018 12:36 PM PRODUCTION ROUSTABOUT Temperature 37 C (98.6 F) 08/04/2018 12:36 PM PRODUCTION ROUSTABOUT Respiratory Rate 20 08/04/2018 3:54 PM PRODUCTION ROUSTABOUT Oxygen Saturation 92% - Inhaled Oxygen - Concentration 08/04/2018 12:36 PM PRODUCTION ROUSTABOUT Weight 62.1 kg (136 lb 14.4 oz) 08/04/2018 12:36 PM PRODUCTION ROUSTABOUT Height 170.2 cm (5' 7") 08/04/2018 12:36 PM PRODUCTION ROUSTABOUT Body Mass Index 21.44 Plan of Treatment Not on file Implants Device Identifier Shelf Expiration Date Model / Serial / Lot Implanted Type Area Manufactur er 11/12/2015 [id number] / / [email or web address] Implanted: Qty: 1 on 09/13/2014 SCIENTIFIC Procedures Comments Procedure Name Priority Date/Time Associated Diagnosis PULMONARY FUNCTION - SCAN 08/12/2018 11:10 AM PRODUCTION ROUSTABOUT 6 MINUTE WALK(FOR LUNG Routine 08/04/2018 Centrilobular emphysema TRANSPLANT ONLY) 3:28 PM PRODUCTION ROUSTABOUT ([facility]) DLCO (SINGLE BREATH Routine 08/04/2018 Centrilobular emphysema DIFFUSION) 3:28 PM PRODUCTION ROUSTABOUT ([facility]) LUNG VOLUMES Routine 08/04/2018 Centrilobular emphysema 3:28 PM PRODUCTION ROUSTABOUT ([facility]) CT CHEST WITHOUT IV Routine 08/04/2018 Centrilobular emphysema CONTRAST 2:41 PM PRODUCTION ROUSTABOUT ([facility]) after 09/30/2017 Results * PULMONARY FUNCTION - SCAN (08/12/2018 11:10 AM PRODUCTION ROUSTABOUT) Narrative Performed At * 6 MINUTE WALK(FOR LUNG TRANSPLANT ONLY) (08/04/2018 3:28 PM PRODUCTION ROUSTABOUT) Narrative Performed At Tejinder Navas, JOB HONER, [facility] 08/04/20184:20 PM [facility] PFT CHARTING REPORT Infection Control/Hand Hygiene procedures followed throughout the encounter with patient: Yes Patient Identification Method: Patient name verified on armband, and Medical record on armband, Is the order complete?: Yes Account ID#: [id number] Patient Name: King Brown Birthdate: 1945 Age: [...] outcome. * Lung volumes (08/04/2018 3:28 PM PRODUCTION ROUSTABOUT) Narrative Performed At Tejinder Navas RRT, [facility] 08/04/20184:20 PM [facility] PFT CHARTING REPORT Infection Control/Hand Hygiene procedures followed throughout the encounter with patient: Yes Patient Identification Method: Patient name verified on armband, and Medical record on armband, Is the order complete?: Yes Account ID#: [id number] Patient Name: King Brown Birthdate: 1945 Age: [...] DLCO (single breath diffusion) (08/04/2018 3:28 PM PRODUCTION ROUSTABOUT) [facility] 08/04/20184:20 PM [facility] PFT CHARTING REPORT Infection Control/Hand Hygiene procedures followed throughout the encounter with patient: Yes Patient Identification Method: Patient name verified on armband, and Medical record on armband, Is the order complete?: Yes Account ID#: [id number] Patient Name: King Brown Birthdate: 1945 Age: [...] chest without IV contrast (08/04/2018 2:41 PM PRODUCTION ROUSTABOUT) Narrative Performed At FINAL REPORT [facility] CT of the chest, without contrast Clinical [...] There is advanced vascular calcification. There is hztu-kv-wcrxuesh emphysema. Mild bronchial wall thickening is noted, [...] Partially imaged upper abdomen is unremarkable. Impression: Zivc-xm-xarqhhtj emphysema. Mild bronchial wall thickening. A few centrilobular micronodules in the right lower lobe likely reflect infectious/inflammatory small airways disease. Atherosclerotic disease. Small hiatal hernia. Signed: Carl Avendano MD Report Verified Date/Time:08/04/2018 16:26:58 Reading Location: [facility] C013X [facility] Consult Reading Room Procedure Note Interface, External Ris In - 08/04/2018 4:29 PM PRODUCTION ROUSTABOUT FINAL REPORT CT of the chest, without [...] There is advanced vascular calcification. There is jquv-ia-lvmsvais emphysema. Mild bronchial wall thickening is noted, [...] Partially imaged upper abdomen is unremarkable. Impression: Cdrd-og-dulofobn emphysema. Mild bronchial wall thickening. A few centrilobular micronodules in the right lower lobe likely reflect infectious/inflammatory small airways disease. Atherosclerotic disease. Small hiatal hernia. Signed: Carl Avendano MD Report Verified Date/Time: 08/04/2018 16:26:58 Reading Location: [address] Consult Reading Room Performing Organization Address City/State/Zipcode Phone Number GE RIS after 09/30/2017 Insurance Payer Benefit Subscriber ID Type Phone Address Plan / Group MEDICARE MEDICARE A xxxxxxxxxxx Medicare B Advance Directives For more information, please contact: [facility] [address] [place] [address] Date Inactivated Comments Code Status Date Activated 09/13/2014 2:35 PM Full Code 09/13/2014 7:00 AM This code status was determined by: Patient
[2018-10-01] MEDS: DOXYCYCLINE 100MG/NS 100ML 100 ML IV SCH (21:15)
[2018-10-01] MEDS: ALBUTEROL SULF 0.083% NEB SOLN 3 ML NEB NEB SCH (22:50)
[2018-10-01] MEDS: METHYLPREDNISOLONE SOD SUCC 125 MG/2ML VIAL IV SCH (22:59)
[2018-10-01] MEDS: IPRATROPIUM BROMIDE 0.02% 2.5 ML NEB NEB SCH (23:00)
[2018-10-01 23:50] VITALS: BP 164/88
--- NOTE | 2018-10-01 23:50 | NUR ---
PATIENT IS A NEW ADMIT THAT ARRIVED VIA STRETCHER. PATIENT IS ALERT AND ORIENTED. PATIENT HAS BEEN ASSISTED INTO THE BED. BED IS IN LOWEST POSITION AND CALL CASTILLO IS WITHIN REACH, WILL CONTINUE TO MONITOR PATIENT.
[2018-10-02] VITALS (7 sets, daily range): BP systolic 132–191; BP diastolic 66–94
[2018-10-02] MEDS: IPRATROPIUM BROMIDE 0.02% 2.5 ML NEB NEB SCH ×7 (02:15→23:40)
[2018-10-02 02:51] LABS: CREATINE KINASE MB 6.4 ng/mL (0-5.0)
--- NOTE | 2018-10-02 03:04 | Consultation ---
DATE OF CONSULTATION: 10/01/2018 Pulmonary Medicine Consult PRIMARY CARE PHYSICIAN: Yoselin Damon MD REASON FOR REFERRAL: COPD. HISTORY OF PRESENT ILLNESS: Ms. Brown is a pleasant 73-year-old female with COPD. The patient was having worsening of shortness of breath recently. Onset six days prior. The patient with phlegm that changed a little bit, it is little more green. The patient not with any definite sick contacts, but she did go out to a [employer], where there was a lot of coughing people that she recalls. The patient finished her prednisone. She was taking her inhalers. As her condition was not improving, she came to the emergency room. Chest x-ray was clear. As she had a lot of wheezing, she was elected for inpatient admission. I am consulted. PAST MEDICAL HISTORY: The patient is well known to me. She has COPD and she was rejected from [facility] Transplant Team, hypertension, chronic respiratory failure, coronary artery disease, hypoxemia, back problems. She has history of some recent malignancy at an early stage treated I think with . Appendectomy, hysterectomy, history of PCI, and kidney stenting. MEDICATIONS: Medication list reviewed per electronic record. ALLERGIES: LEVOFLOXACIN. AZITHROMYCIN WAS ALSO STATED. SOCIAL HISTORY: No alcohol. No drugs. The patient smoked from age 18 to 57, one pack per day. She works in maintenance and in chemical industry. She lives in [place] by herself. FAMILY HISTORY: Noncontributory. REVIEW OF SYSTEMS: GENERAL: No weight loss. HEENT: No mouth ulcers. ENDOCRINE: No thyroid disease. LUNGS: No hemoptysis. CARDIAC: No recent MN. GI: No constipation. : No blood in the urine. NEUROLOGIC: No seizures. DERMATOLOGIC: No new rash. PSYCHIATRIC: No depression. PHYSICAL EXAMINATION: VITAL SIGNS: Afebrile, vital signs noted and reviewed per the chart record. GENERAL: No acute distress, alert. She is having some shortness of breath. HEENT: Normocephalic, atraumatic. NECK: Supple. Throat midline. LUNGS: Bilateral air entry. CARDIOVASCULAR: S1, S2. No murmurs, rubs, or gallops. ABDOMEN: Soft and nontender. EXTREMITIES: No clubbing, no cyanosis. There is no edema. INTEGUMENT: No rash. No purpura. LABORATORY DATA: Labs reviewed per the chart. 3.6 potassium, 0.7 creatinine. 7.4 white count, 39 hematocrit. IMPRESSION AND PLAN: 1. Chronic obstructive pulmonary disease with exacerbation. 2. Decreased functional endurance. 3. Hypertension. 4. Chronic respiratory failure. 5. Hypoxemia. 6. History of back problems. 7. History of coronary artery disease and history of PCI. 8. History of some early . Short-term steroids. Continue bronchodilators. Empiric antibiotics. Start to mobilize her aggressively and she is feeling better. We will order physical therapy for tomorrow. Thank you very much, Dr. Damon and Dr. Pool for this consult. Please call for questions. MD BAO Murrieta/MAGUE /[id number]
[2018-10-02] MEDS: METHYLPREDNISOLONE SOD SUCC 125 MG/2ML VIAL IV SCH ×2 (05:07→16:37)
[2018-10-02] MEDS: ALBUTEROL SULF 0.083% NEB SOLN 3 ML NEB NEB SCH ×7 (05:10→23:40)
--- NOTE | 2018-10-02 05:14 | NUR ---
Patient's blood pressure is 191/92. patient is also complaining of a headache, and cough. paged, awaiting call back.
--- NOTE | 2018-10-02 05:27 | NUR ---
MD called back and gave orders to continue home medications. MD also gave orders for cough medication. will continue to monitor patient.
[2018-10-02] MEDS ORDERED: ALBUTEROL SULF 0.083% NEB SOLN 3 ML NEB NEB PRN (05:30)
[2018-10-02 05:51] LABS: BASOPHILS % 0.3 % (0.0-1.0); EOSINOPHILS % 0.3 % (0.0-6.0); HEMATOCRIT 39.2 % (34.2-44.1); HEMOGLOBIN 12.6 g/dL (12.0-16.0); LYMPHOCYTES # (AUTO) 0.6 (1.0-3.2); LYMPHOCYTES % 15.3 % (18.0-39.1); MEAN CORPUSCULAR HEMOGLOBIN 30.1 pg (28-32); MEAN CORPUSCULAR HGB CONC 32.1 g/dL (31-35); MEAN CORPUSCULAR VOLUME 93.6 fL (81-99); MONOCYTES % 0.5 % (4.4-11.3); NEUTROPHILS # (AUTO) 3.3 (2.1-6.9); NEUTROPHILS % 83.1 % (38.7-80.0); PLATELET COUNT 248 x10e3/uL (140-360); RED BLOOD COUNT 4.19 x10e6/uL (3.6-5.1); RED CELL DISTRIBUTION WIDTH 14.5 % (11.7-14.4)
[2018-10-02] MEDS: LOSARTAN POTASSIUM 100 MG TAB PO SCH ×2 (05:57→09:36)
[2018-10-02] MEDS: AMLODIPINE BESYLATE 10 MG TAB PO SCH ×2 (05:58→09:37)
[2018-10-02] MEDS: GUAIFENESIN 200 MG/10 ML UDC PO PRN (05:58)
[2018-10-02] MEDS: ACETAMINOPHEN 325 MG TAB PO PRN ×2 (05:58→13:14)
[2018-10-02 06:16] LABS: ALANINE AMINOTRANSFERASE 16 IU/L (0-55); ALBUMIN 3.8 g/dL (3.5-5.0); ALBUMIN/GLOBULIN RATIO 1.3 (0.8-2.0); ALKALINE PHOSPHATASE 66 IU/L (40-150); ANION GAP 13.7 mmol/L (8-16); BLOOD UREA NITROGEN 16 mg/dL (7-26); BUN/CREATININE RATIO 22 (6-25); CALCIUM 9.5 mg/dL (8.4-10.2); CARBON DIOXIDE 31 mmol/L (22-29); CHLORIDE 101 mmol/L (98-107); CREATININE, SERUM 0.74 mg/dL (0.57-1.11); EST GLOMERULAR FILTRATION RATE > 60 ML/MIN (60-); GLUCOSE 146 mg/dL (74-118); POTASSIUM 3.7 mmol/L (3.5-5.1); SODIUM 142 mmol/L (136-145)
--- NOTE | 2018-10-02 06:36 | NUR ---
patients blood pressure has been reassessed and found to be 182/79.
--- NOTE | 2018-10-02 06:55 | NUR ---
REPORT GIVEN TO MORNING NURSE. PATIENT IS RESTING IN BED. BED IS IN LOWEST POSITION AND CALL LIGHT IS WITHIN REACH.
[2018-10-02 08:16] LABS: LYMPHOCYTES % (MANUAL) 13 % (19-48); MONOCYTES % (MANUAL) 2 % (3.4-9.0); NEUTROPHILS % (MANUAL) 85 % (40-74); PLATELET ESTIMATE ADEQUATE; PLATELET MORPHOLOGY COMMENT NORMAL; RBC MORPHOLOGY COMMENT NORMAL
[2018-10-02] MEDS ORDERED: PREDNISONE 10 MG TAB PO SCH (09:00)
[2018-10-02] MEDS: ASPIRIN 81 MG ENTERIC COATED PO SCH (09:36)
[2018-10-02] MEDS: DOXYCYCLINE 100MG/NS 100ML 100 ML IV SCH ×2 (09:36→20:48)
[2018-10-02] MEDS ORDERED: SODIUM CHLORIDE 0.9% 250ML 250 ML ONE (09:53)
[2018-10-02 14:56] LABS: CREATINE KINASE MB 4.8 ng/mL (0-5.0)
--- NOTE | 2018-10-02 18:11 | Progress Note ---
DATE: 10/02/2018 Pulmonary Medicine Progress Note SUBJECTIVE: Ms. Brown was seen and examined at bedside. She continues to have steady progress. Currently on 4 L/minute by nasal cannula. The progress she had overnight is very minimal, but there is no worsening. Her heart is stable. She has a bedside commode as she was very dyspneic on going to the restroom and was extremely symptomatic. She is eating. REVIEW OF SYSTEMS: No headaches. No rash. OBJECTIVE: VITAL SIGNS: Afebrile, vital signs noted per the chart record. GENERAL: In no acute distress, alert and calm. HEENT: Normocephalic, atraumatic. NECK: Supple. Throat midline. LUNGS: Bilateral air entry is decreased, moderate wheezes, rare rhonchi. CARDIOVASCULAR: S1, S2. No murmurs, rubs, or gallops. ABDOMEN: Soft, nontender. EXTREMITIES: No clubbing or cyanosis. There is no edema. INTEGUMENT: No rashes or purpura. LABS: BUN 15, creatinine 0.7. Potassium 3.7. White count 4, hematocrit 39, platelets 248. IMPRESSION: 1. Chronic obstructive pulmonary disease with exacerbation. 2. Hypoxemia, chronic respiratory failure. 3. Weakness. 4. History of coronary artery disease and percutaneous coronary intervention. 5. Former smoker, quit. PLAN: Continue IV steroids. She wants to try a which I will give. The pink pill will be ordered per her request. Continue bronchodilators. Continue antibiotics for COPD exacerbation. We will follow along closely. MD BAO Murrieta/MIRAL /[id number]
--- NOTE | 2018-10-02 19:24 | NUR ---
received report from day nurse. patient is resting comfortably in bed. bed is in lowest position and call parker is within reach.
--- NOTE | 2018-10-02 20:06 | History and Physical ---
REASON FOR ADMISSION: Ms. Brown is a complex and unfortunate 73-year-old woman, who presented to the emergency room on the evening of the with a complaint of progressive shortness of breath. HISTORY OF PRESENT ILLNESS: The patient reports she has recently been getting more short of breath. I think if she had a "cold." She visited with Dr. Damon last week, but she has not used any antibiotics of any sort. She reports cough without significant sputum. She denies any chest pain or palpitations. PAST MEDICAL HISTORY: Long and complex, especially for severe COPD. She has longstanding hypertension and depression. She had previous cardiac cath with coronary stenting and renal stenting by Dr. Matt Bowman more than 6 years ago at [facility]. She has not had any recurrent chest pain. PAST SURGICAL HISTORY: She has had bilateral hip surgeries. The most recent being in 2018. She has had a remote appendectomy, hysterectomy, and tonsillectomy. She had polypectomy by colonoscopy in 2016 that evidently did show malignancy in a polyp, but has not had followup. MEDICATIONS: Recent home medications include losartan 100 mg daily, which she reduced to 50 mg daily after she was found to be mildly hypotensive at [facility]. Previously, amlodipine 10 mg daily also reduced to 5 mg. She reports she has been using prednisone on a daily basis and Xanax p.r.n. Aspirin 81 mg daily. She has inhalers. PERSONAL AND SOCIAL HISTORY: The patient no longer smokes after she had a 75-kayi-uyxy history of smoking. FAMILY HISTORY: Father at 88. Mother at 78. PHYSICAL EXAMINATION: GENERAL: At this time shows a thin, elderly white woman, who reports that she may have lost as much as 15 pounds this year already. VITAL SIGNS: Blood pressure 120/80. HEAD, EYES, EARS, NOSE, AND THROAT: Shows some wasting. NECK: No jugular venous distention. THORAX: Heart sounds S1 and S2 are equal and regular with no significant murmur. LUNGS: Distant breath sounds and bilateral wheezing. ABDOMEN: Protuberant. EXTREMITIES: No cyanosis, clubbing, or edema. LABORATORY DATA: EKG shows sinus rhythm. Laboratory studies show BUN 16, creatinine 0.7. White count 3.91. Urinalysis suggest 6-10 white cells, trace leukocyte esterase, and moderate bacteria, however, may be contaminated with squamous cells seen. Chest x-ray shows COPD. ASSESSMENT: 1. Exacerbation of chronic obstructive pulmonary disease. 2. Coronary artery disease, clinically stable. 3. Possible urinary tract infection, although could just be a contamination. 4. Hypertension, may have rebounded after previous reduction of medications. PLAN: I have cautioned her to reassure her nutrition and we used hydration, steroids, and bronchodilators. We will check urine culture. Further management based on clinical course. MD SONALI Villalobos/MODL /[id number] cc: MD Yoselin Murrieta MD
[2018-10-02] MEDS: BUDESONIDE 0.5MG/2 ML NEB INH SCH (20:23)
[2018-10-02] MEDS: TRAMADOL HCL 50 MG TAB PO PRN (20:48)
[2018-10-02] MEDS: ZOLPIDEM TARTRATE 5 MG TAB PO PRN (21:56)
[2018-10-03] VITALS (7 sets, daily range): BP systolic 128–160; BP diastolic 60–76
[2018-10-03] MEDS: METHYLPREDNISOLONE SOD SUCC 125 MG/2ML VIAL IV SCH ×2 (03:28→17:05)
[2018-10-03] MEDS: IPRATROPIUM BROMIDE 0.02% 2.5 ML NEB NEB SCH ×6 (03:35→23:14)
[2018-10-03] MEDS: ALBUTEROL SULF 0.083% NEB SOLN 3 ML NEB NEB SCH ×6 (03:35→23:14)
[2018-10-03] MEDS: TRAMADOL HCL 50 MG TAB PO PRN ×3 (03:52→19:28)
--- NOTE | 2018-10-03 06:41 | NUR ---
report given to day nurse. patient is resting comfortably in bed. bed is in lowest position and call parker is within reach.
[2018-10-03] MEDS: BUDESONIDE 0.5MG/2 ML NEB INH SCH ×2 (07:01→19:38)
--- NOTE | 2018-10-03 07:29 | NUR ---
patient resting in bed, Alert with no distress, denies any pain, call light in reach, bed alarm ON
[2018-10-03] MEDS: ACETAMINOPHEN 325 MG TAB PO PRN (07:30)
[2018-10-03] MEDS: DOXYCYCLINE 100MG/NS 100ML 100 ML IV SCH ×2 (07:55→19:27)
[2018-10-03] MEDS: LOSARTAN POTASSIUM 100 MG TAB PO SCH (08:56)
[2018-10-03] MEDS: AMLODIPINE BESYLATE 10 MG TAB PO SCH (08:56)
[2018-10-03] MEDS: ASPIRIN 81 MG ENTERIC COATED PO SCH (08:56)
--- NOTE | 2018-10-03 10:43 | NUR ---
LEAD MAN OVER ALL DIES IN PATTERN SHOP DOCUMENTED MINIMAL IMPROVEMENT, DECREASED BREATH SOUNDS W/ WHEEZING.REMAINS ON O2 4L/M N/C. TODAY IS DAY 2 OBS AND CM HAS REQUESTED INPATIENT ORDER.
--- NOTE | 2018-10-03 11:45 | NUR ---
Dr Israel here for rounds , stated change admitting physician to Dr Gardner, then only the patient will show up in her list in order her to see the patient
[2018-10-03] MEDS ORDERED: METOPROLOL TARTRATE INJ 1 MG/ML VIAL IV PRN (12:15)
[2018-10-03] MEDS ORDERED: HYDRALAZINE HCL 20 MG/ML VIAL IV PRN (12:15)
[2018-10-03 12:28] LABS: CLARITY,URINE HAZY (CLEAR); COLOR,URINE YELLOW (YELLOW); LEUKOCYTE ESTERASE ,URINE NEGATIVE (NEGATIVE); NITRITE,URINE POSITIVE (NEGATIVE); PROTEIN,URINE DIPSTICK NEGATIVE (NEGATIVE)
[2018-10-03 12:29] LABS: BILIRUBIN,URINE NEGATIVE (NEGATIVE); KETONES,URINE NEGATIVE (NEGATIVE); URINE UROBILINOGEN 0.2 mg/dL (0.2 - 1)
[2018-10-03 12:34] LABS: WBC,URINE (MAN) 0-5 /HPF (0-5)
[2018-10-03 12:35] LABS: AMORPHOUS SEDIMENT,URINE FEW (FEW); BACTERIA,URINE MODERATE /HPF; EPITHELIAL CELLS,URINE MODERATE /LPF; MUCUS,URINE FEW (RARE); RBC,URINE 0-5 /HPF (0-5)
[2018-10-03 13:44] LABS: CHOL/HDL RATIO 2.1 (3.0-3.6); MAGNESIUM 2.1 MG/DL (1.3-2.1); PHOSPHORUS 3.5 MG/DL (2.3-4.7)
--- NOTE | 2018-10-03 13:57 | NUR ---
Patient lives: lives at home alone Admit/Transfer: Admit Hospital/ER visits since last admit: Last admission was in July POA/Emergency contact: Current/Previous Home Health: No home care hx and has limited support system PCP/Follow-up Care: Yoselin Damon MD Current/Previous DME:Patient uses a cane, rollator and a commode. Patient also uses portable O2. Medications (referring to index hospitalization or the first time you were in the hospital) a. Were changes made in your medications when you were in the hospital on [date of index hospitalization]? Yes No Not sure Explain: Note: If no or not sure, please skip to question d b. Did you understand the changes? Yes No Explain: c. Were you able to obtain your new medications right away? Yes Non/a SNF only Explain: d. Were you able to take your medications like the doctor wanted you to? Yes No Explain: e. Did the hospital give you an accurate, easy to understand list of medications when you left? Yes No n/a SNF only Explain: Scale of 1-10 how comfortable does patient feel with disease management in outpatient setting: Other Services: Employment Status: Receives SSI Areas of Concerns: Patient states someof her medication has a high cost or copay. Referral Needs: Education Needs: IMM/VALDEZ given and signed (if applicable): VALDEZ Letter signed and placed in chart
[2018-10-03 14:05] LABS: THYROID STIMULATING HORMONE 0.092 uIU/mL (0.350-4.940)
--- NOTE | 2018-10-03 18:11 | Progress Note ---
DATE: 10/03/2018 Pulmonary Medicine Progress Note SUBJECTIVE: Ms. Brown was seen and examined at bedside. She continues to have steady progress. The patient with bowel movement x1. She walked to the hallway and was little bit easier; however, she did not walk in the hallway. She is still not feeling too much better. REVIEW OF SYSTEMS: No chest pain, no diarrhea. OBJECTIVE: VITAL SIGNS: Afebrile. Vital signs noted per the chart record. GENERAL: In no acute distress, alert and calm. HEENT: Normocephalic, atraumatic. NECK: Supple. Throat midline. LUNGS: Bilateral air entry is moderate, small to moderate wheezes present. CARDIOVASCULAR: S1, S2. No murmurs, rubs, or gallops. ABDOMEN: Soft, nontender. EXTREMITIES: No clubbing, no cyanosis, no edema. INTEGUMENTARY: No rash. No purpura. IMPRESSION: 1. Chronic obstructive pulmonary disease with exacerbation. 2. Hypoxemia, chronic respiratory failure. 3. Weakness. 4. Coronary artery disease and history of PCI in the past. 5. Former smoker, quit. 6. Decreased functional endurance. PLAN: Continue at this time bronchodilators. Steroids being weaned. Continue mobilizing the patient. Physical therapy will be ordered for tomorrow. I discussed options with her including re-evaluation at a different lung transplant center in the future. MD BAO Murrieta/MAGUE /[id number]
--- NOTE | 2018-10-03 19:00 | NUR ---
Received report from day nurse. patient is resting comfortably in bed. bed is in lowest position and call parker is within reach. will continue to monitor patient.
[2018-10-03] MEDS: ZOLPIDEM TARTRATE 5 MG TAB PO PRN (23:56)
[2018-10-04] VITALS: BP 132/63
[2018-10-04] MEDS: IPRATROPIUM BROMIDE 0.02% 2.5 ML NEB NEB SCH ×6 (02:14→23:00)
[2018-10-04] MEDS: ALBUTEROL SULF 0.083% NEB SOLN 3 ML NEB NEB SCH ×6 (02:15→23:00)
[2018-10-04] MEDS: METHYLPREDNISOLONE SOD SUCC 125 MG/2ML VIAL IV SCH ×2 (03:26→16:22)
[2018-10-04 04:00] VITALS: BP 151/66
[2018-10-04] MEDS: ALPRAZOLAM 0.5 MG TAB PO PRN (05:09)
[2018-10-04] MEDS: BUDESONIDE 0.5MG/2 ML NEB INH SCH ×2 (07:00→19:45)
--- NOTE | 2018-10-04 07:00 | NUR ---
report given to day nurse. patient is resting comfortably in bed. bed is in lowest position and call parker is within reach.
[2018-10-04 07:50] VITALS: BP 142/71
[2018-10-04] MEDS: DOXYCYCLINE 100MG/NS 100ML 100 ML IV SCH ×2 (07:50→22:58)
[2018-10-04] MEDS: ASPIRIN 81 MG ENTERIC COATED PO SCH (08:45)
[2018-10-04] MEDS: TRAMADOL HCL 50 MG TAB PO PRN (08:45)
[2018-10-04] MEDS: LOSARTAN POTASSIUM 100 MG TAB PO SCH (08:45)
[2018-10-04] MEDS: AMLODIPINE BESYLATE 10 MG TAB PO SCH (08:45)
[2018-10-04 12:02] VITALS: BP 150/68
--- NOTE | 2018-10-04 15:24 | NUR ---
report given to Donn for patient to be transferred via wheelchair. Patient alert and oriented and aware of change.
--- NOTE | 2018-10-04 15:37 | NUR ---
patient left unit for room transfer. Patient alert and oriented. Will travel via wheelchair with belongings and O2 via nasal cannula
--- NOTE | 2018-10-04 15:48 | NUR ---
PATIENT RECEIVED FROM [facility] PER WHEEL CHAIR. ALERT AND VERBALLY RESPONSIVE. SKIN WARM AND DRY TO TOUCH WITH BRUISES TO BOTH ARMS. ON O2 AT 4.5 LITERS VIA N/C, NO RESPIRATORY DISTRESS OBSERVED. ASSISTED IN BED, CALL LIGHT AT REACH. INSTRUCTED TO CALL FOR ASSISTANCE NEEDED. BED ALARM ACTIVATED.
[2018-10-04 16:00] VITALS: BP 130/62
[2018-10-04] MEDS: ACETAMINOPHEN 325 MG TAB PO PRN (16:21)
--- NOTE | 2018-10-04 19:19 | NUR ---
ROUNDS DONE, PATIENT CONTINUE RESTING, NO DISTRESS NOTED. CALL LIGHT IN REACH. WILL CONTINUE TO MONITOR.
[2018-10-04 20:00] VITALS: BP 158/80
[2018-10-04] MEDS: ZOLPIDEM TARTRATE 5 MG TAB PO PRN (20:39)
[2018-10-05] VITALS (9 sets, daily range): BP systolic 120–166; BP diastolic 65–92
[2018-10-05] MEDS: ACETAMINOPHEN 325 MG TAB PO PRN (01:52)
--- NOTE | 2018-10-05 01:58 | Progress Note ---
DATE: 10/04/2018 Pulmonary Medicine Progress Note. SUBJECTIVE: Ms. Brown was seen and examined at bedside. She continues to have slow progress. She says she has anxiety attack today. Furthermore, she is having shortness of breath on eating and on 5 L/minute by nasal cannula. REVIEW OF SYSTEMS: No headaches, no GI bleed. OBJECTIVE: VITAL SIGNS: Afebrile, vital signs noted per the chart record. GENERAL: In no acute distress, alert and calm, slightly nervous, turning in bed. HEENT: Normocephalic, atraumatic. NECK: Supple. Throat midline. LUNGS: Bilateral air entry is decreased, rare wheezes. CARDIOVASCULAR: S1, S2. No murmurs, rubs, or gallops. ABDOMEN: Soft, nontender. EXTREMITIES: No clubbing, no cyanosis, there is no edema. INTEGUMENT: No rash. No purpura. IMPRESSION: 1. COPD with exacerbation. 2. Chronic respiratory failure, on 2 to 3 L oxygen. 3. Mild intermittent anxiety. 4. Hypertension. PLAN: Continue antibiotics. Bronchodilators. Steroids. Mobilize the patient further. As she gets better, we hope she may be able to go home soon. MD BAO Murrieta/MAGUE /[id number]
[2018-10-05] MEDS: IPRATROPIUM BROMIDE 0.02% 2.5 ML NEB NEB SCH ×6 (03:15→23:15)
[2018-10-05] MEDS: ALBUTEROL SULF 0.083% NEB SOLN 3 ML NEB NEB SCH ×6 (03:15→23:15)
[2018-10-05] MEDS: METHYLPREDNISOLONE SOD SUCC 125 MG/2ML VIAL IV SCH (03:54)
[2018-10-05] MEDS: ALPRAZOLAM 0.5 MG TAB PO PRN (05:39)
--- NOTE | 2018-10-05 07:21 | NUR ---
rounds done, patient resting on the side of the bed stating she can't breath, patient was able to sleep good for several hours once she received her sleeping medication but once she was awake several times she stated she couldn't breath and received her neb treatments as ordered scheduled and prn, patient received education but she needs constantly education because she's very passive. Patient complain this am around 0600 that her right thumb was itching and the area was red with a very small skin tear, asked patient to stop scratching at the area, she refused to listen and continue scratching. Instructed patient several times to try to control her breathing whenever she becomes sob, patient refuse to listen. report given to 7am nurse.
[2018-10-05] MEDS: LOSARTAN POTASSIUM 100 MG TAB PO SCH (08:18)
[2018-10-05] MEDS: AMLODIPINE BESYLATE 10 MG TAB PO SCH (08:18)
[2018-10-05] MEDS: ASPIRIN 81 MG ENTERIC COATED PO SCH (08:18)
[2018-10-05] MEDS: DOXYCYCLINE 100MG/NS 100ML 100 ML IV SCH ×2 (08:18→19:30)
[2018-10-05] MEDS: BUDESONIDE 0.5MG/2 ML NEB INH SCH ×2 (11:10→18:50)
[2018-10-05] MEDS: METOPROLOL TARTRATE 25 MG TAB PO SCH ×2 (11:50→20:48)
--- NOTE | 2018-10-05 15:01 | NUR ---
RECEIVED A CALL FROM DR. ROJAS REGARDING PATIENT'S SUICIDAL IDEATIONS- CONSULT ORDER PLACED. RN SPOKE WITH PATIENT REGARDING PHYSICIANS CONCERNS AND ORDERS- PATIENT ACKNOWLEDGES SUICIDAL IDEATIONS NOW AND AT HOME POST DISCHARGE.
--- NOTE | 2018-10-05 16:05 | NUR ---
Visit made by the Spiritual Care Department Pastoral Visitor, Micki Lselie. Pt unavailable at this time. LIN Darden Spiritual Care Department O: [phone] Pager: [phone] ([phone] number calling from)
--- NOTE | 2018-10-05 16:19 | NUR ---
SPOKE WITH DR. ESCOBAR REGARDING PATIENT'S CURRENT CONDITION- NEW ORDER RECEIVED.
[2018-10-05] MEDS ORDERED: ALPRAZOLAM 0.5 MG TAB PO NR (16:30)
--- NOTE | 2018-10-05 18:49 | NUR ---
PATIENT RESTING IN BED- IN STABLE CONDITION WITH NO S/S OF RESPIRATORY DISTRESS. NO PAIN VOICED. TELEMETRY AND CONTINUOUS PULSE OX APPLIED. SITTER PRESENT IN ROOM. NIGHT NURSE INFORMED OF PATIENT'S SUICIDAL IDEATIONS- PRECAUTIONS TAKEN FOR PATIENT'S SAFETY. PATIENT INSTRUCTED TO CALL FOR ASSISTANCE NEEDED. BEDSIDE REPORT GIVEN TO ONCOMING NURSE.
--- NOTE | 2018-10-05 19:00 | NUR ---
patient received awake, alert, lying quietly in bed. respirations even and unlabored. 02/nc in use. pm assessment complete. 1:1 remains at the bedside for safety. patient instructed to calll for assistance when needed.
[2018-10-05] MEDS: ZOLPIDEM TARTRATE 5 MG TAB PO PRN (20:48)
[2018-10-06] VITALS (9 sets, daily range): BP systolic 136–167; BP diastolic 64–81
--- NOTE | 2018-10-06 02:00 | Progress Note ---
DATE: 10/05/2018 Pulmonary Medicine Progress Note. SUBJECTIVE: Ms. Brown was seen and examined at bedside. She states she feels horrible. She claims she is not getting better. Lot of breathing difficulties continued. She says she would consider harming herself. She does not have a plan to harm herself despite feeling like she would be better off . REVIEW OF SYSTEMS: No GI bleed, no chest pain. OBJECTIVE: VITAL SIGNS: Afebrile, vital signs noted per the chart record. GENERAL: In no acute distress. Alert and calm. HEENT: Normocephalic and atraumatic. NECK: Supple. Throat midline. LUNGS: Bilateral air entry, moderate air entry, and moderate wheezes. CARDIOVASCULAR: S1 and S2. No murmurs, rubs, or gallops. ABDOMEN: Soft and nontender. EXTREMITIES: No clubbing and no cyanosis. There is no edema. INTEGUMENT: No rash. No purpura. LABS: 16 BUN and 0.7 creatinine. 3.9 white count, 39 hematocrit, 248 last blood work. IMPRESSION: 1. [id number] respiratory failure. 2. COPD with exacerbation, advanced. 3. Possible depression. 4. Weakness. At this time, we recommend serial followup for lung function. Continue steroids. Continue bronchodilators. Physical therapy to mobilize her. I notified nursing and we will get psychiatry consult to issue statements. The patient remains with very slow progress and she is not ready for discharge yet. MD BAO Murrieta/MAGUE /[id number]
[2018-10-06] MEDS: IPRATROPIUM BROMIDE 0.02% 2.5 ML NEB NEB SCH ×6 (03:55→22:50)
[2018-10-06] MEDS: ALBUTEROL SULF 0.083% NEB SOLN 3 ML NEB NEB SCH ×6 (03:55→22:50)
--- NOTE | 2018-10-06 06:20 | NUR ---
patient appears to be resting quietly. no c/o pain noted throughout the night. 1:1 remains at the bedside for safety. patient denies suicidal thoughts this am.
[2018-10-06] MEDS: BUDESONIDE 0.5MG/2 ML NEB INH SCH ×2 (07:00→19:15)
--- NOTE | 2018-10-06 07:30 | NUR ---
PT IN BED RESTING,1;1 SITTER AT BED SIDE,NO DISTRESS NOTED,O2 [address],
[2018-10-06] MEDS: LOSARTAN POTASSIUM 100 MG TAB PO SCH (08:00)
[2018-10-06] MEDS: ASPIRIN 81 MG ENTERIC COATED PO SCH (08:00)
[2018-10-06] MEDS: DOXYCYCLINE 100MG/NS 100ML 100 ML IV SCH ×2 (08:00→20:30)
[2018-10-06] MEDS: GUAIFENESIN 200 MG/10 ML UDC PO PRN (08:30)
[2018-10-06] MEDS: THEOPHYLLINE 200 MG TABCR PO SCH (09:00)
[2018-10-06] MEDS: AMLODIPINE BESYLATE 10 MG TAB PO SCH (09:00)
[2018-10-06] MEDS: METOPROLOL TARTRATE 25 MG TAB PO SCH ×2 (09:00→22:00)
[2018-10-06] MEDS: PREDNISONE 20 MG TAB PO SCH (09:00)
--- NOTE | 2018-10-06 10:39 | NUR ---
ASSESSMENT: Spiritual Despair Referred by nurse. Pt is frustrated and overwhelmed. Pt states she has "been lied to" by physicians who have made empty promises. Pt states her quality of life has been severely impacted due to her illnesses and has considered suicide. Pt states she "can't even go to the bathroom without being out of breath" and "doesn't want to live like that." Pt states she has struggled with illness for 4 years. Pt states she is "ready to meet the Lord." Pt states she has no surviving family. Pt states prior to illness she enjoyed working in her yard but is now unable. Pt ended visit due to inability to continue talking. Intervention: Provided unhurried, non-judgmental empathic listening. Facilitated identification of resources. Provided information on how to reach graduate recruiter, if needed. Provided prayer. Outcome: Pt expressed appreciation for visit. Followed up w/ nurse. LIN SHIRLEY Rand Sewer Spiritual Care Department O: [phone] Pager: [phone] ([phone] number calling from)
[2018-10-06] MEDS: ALPRAZOLAM 0.5 MG TAB PO PRN (10:45)
--- NOTE | 2018-10-06 14:30 | NUR ---
MS DEEPIKA GUEVARA HERE ORDERS WRITTEN
--- NOTE | 2018-10-06 16:24 | NUR ---
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
[2018-10-06] MEDS: SERTRALINE HCL 50 MG TAB PO SCH (16:48)
[2018-10-06] MEDS: LORAZEPAM 0.5 MG TAB PO PRN ×2 (16:48→23:05)
--- NOTE | 2018-10-06 16:51 | NUR ---
PT C/O ANXIETY MEDICATED,
--- NOTE | 2018-10-06 17:03 | NUR ---
IMM LETTER EXPLAINED TO PT. PT VERBALIZED UNDERSTANDING. IMM LETTER WAS SIGNED. COPY TO PT AND COPY TO CHART. SITTER AT THE BEDSIDE.
--- NOTE | 2018-10-06 18:25 | Consultation ---
DATE OF CONSULTATION: 10/06/2018 Psychiatric Consultation REASON FOR CONSULTATION: To evaluate the patient's mood. HISTORY OF PRESENT ILLNESS: The patient is a 73-year-old female admitted to the hospital for acute bronchitis and COPD exacerbation. Psychiatric consultation is called to evaluate the patient's mood. As per the medical record, the patient has long history of COPD, hypertension, depression. As per notes from tray setter, she had been rejected from [facility] team. Upon evaluation today, the patient is currently in the room with a sitter. She is alert, awake, and oriented to situation. She is not confused. She states that she has been feeling depressed and anxious for the last couple of days. She denies feeling hopeless or helpless. She endorses passive wish and that she would like to if her condition does not improve. She claims that she has been sick for last three years from shortness of breath. She states she has frequent panic attacks. She claims she is unable to eat properly due to shortness of breath. She is unable to go to the restroom without feeling shortness of breath. She denies any problem with sleep. She claims that she would take her life is her condition does not get better. She denies any homicidal ideation at this time. She denies any suicidal ideation at this time. She is frustrated and irritable. She is not combative at this time. As per nursing staff, the patient has been irritable, anxious, depressed since she was told about her medical condition. PAST PSYCHIATRIC HISTORY: The patient reports she has been seeing Dr. Duran for what she does not know. Her last appointment with him was five years ago. She admits to past suicide attempts. She denies any alcohol or drug use. FAMILY HISTORY: Denies. SOCIAL HISTORY: The patient states she lives alone and has no support or family members nearby. MENTAL STATUS EXAM: The patient is an elderly female. She is alert, awake, and oriented to situation. Her mood is depressed, anxious and irritable. Affect is congruent with mood. Psychomotor state is passive. She denies any suicidal ideation or homicidal ideation. At times, she endorses passive wish. She denies any hallucination. Thought process is concrete. No delusion elicited. Insight and judgment are fair. Memory appears to be grossly intact. CURRENT MEDICATIONS: 1. Atrovent. 2. Albuterol. 3. Theophylline. 4. Prednisolone. 5. Metoprolol. 6. Amlodipine. 7. Guaifenesin. 8. Losartan. 9. Aspirin. 10. Doxycycline. 11. Ambien 5 mg p.o. at bedtime p.r.n. 12. Budesonide. 13. Hydralazine. 14. Acetaminophen. 15. Tramadol. 16. Xanax daily p.r.n. 17. Hydrochlorothiazide. LABORATORY DATA: WBC is 3.16, RBC 4.19, hemoglobin 12.6, hematocrit 39.2, platelets 248. Sodium 142, potassium 3.7, chloride 101, CO2 is 31, BUN 16, creatinine 0.74. ASSESSMENT: Major depressive disorder, recurrent, moderate to severe. PLAN OF TREATMENT: 1. Add Zoloft 25 mg p.o. daily one dose now. 2. Discontinue Xanax p.r.n. 3. Add Ativan 0.5 mg p.o. q.6h. p.r.n. 4. Continue Ambien p.r.n. at bedtime. 5. Monitor for mood. 6. Discussed with nursing staff. 7. Supportive therapy. Thank you for this consultation. Dictated by Lisa Yin PA-C Gunnar Lowe MD QTV/MODL /[id number]
--- NOTE | 2018-10-06 18:30 | NUR ---
PT IN BED ,NO ANXIETY NOTED,1;1 SITTER AT BEDSIDE.O2 [address]L NC IN PLACE
--- NOTE | 2018-10-06 19:15 | NUR ---
Bedside rounds completed with morning nurse. Pt alert to name. Lying in bed HOB 60 degrees. Pt c/o SOB, R22. Increased HOB 90, nurse called RT for neb treatment. Demonstrated to Pt slow inhalation, hold end inspiration for a few seconds, and passively exhale. Decreased air temperature in room. Pt decreased respirations, 18. Call parker within reach. Will continue to monitor.
--- NOTE | 2018-10-06 23:41 | Progress Note ---
DATE: 10/06/2018 Pulmonary Medicine Progress Note. SUBJECTIVE: Ms. rBown was seen and examined at bedside. She continues to report some depressive thoughts. She has some thoughts about harming herself. She remains on one-to-one watch at this time. Her lungs are slightly better today. Currently, she is on 4 L/minute by nasal cannula. REVIEW OF SYSTEMS: No headaches, no bleeding. OBJECTIVE: VITAL SIGNS: Afebrile. Vital signs noted per the chart record. GENERAL: In no acute distress, alert, in bed. HEENT: Normocephalic, atraumatic. NECK: Supple. Throat midline. LUNGS: Bilateral air entry, decreased breath sounds, mild wheezing. CARDIOVASCULAR: S1, S2. No murmurs, rubs, or gallops. ABDOMEN: Soft, nontender. EXTREMITIES: No clubbing. No cyanosis. There is no edema. INTEGUMENT: No rash. No purpura. IMPRESSION: 1. Acute hypoxemic respiratory failure, improved. 2. Advanced COPD with exacerbation. 3. Chronic respiratory failure. 4. Depression, recurrent, [id number]. 5. Hypertension. 6. Coronary artery disease, status post PCI. 7. Early stage colonic malignancy. PLAN: 1. Continue oxygen supplement. Continue bronchodilators. 2. . 3. Continue the new theophylline at this time. 4. Continue weaning the prednisone slowly, but do not change the prednisone yet. 5. We will follow closely. MD BAO Murrieta/MAGUE /[id number]
[2018-10-07] MEDS: IPRATROPIUM BROMIDE 0.02% 2.5 ML NEB NEB SCH ×6 (02:15→23:58)
[2018-10-07] MEDS: ALBUTEROL SULF 0.083% NEB SOLN 3 ML NEB NEB SCH ×6 (02:15→23:58)
[2018-10-07 04:00] VITALS: BP 164/82
[2018-10-07] MEDS: TRAMADOL HCL 50 MG TAB PO PRN (04:06)
[2018-10-07] MEDS: BUDESONIDE 0.5MG/2 ML NEB INH SCH ×2 (07:00→20:45)
[2018-10-07 07:35] VITALS: BP 170/78
--- NOTE | 2018-10-07 07:35 | NUR ---
PT IN BED ,NEB TX IN PROCESS,1;1 SITTER AT BEDSIDE.
--- NOTE | 2018-10-07 08:00 | NUR ---
PT C/O ANXIETY MEDICTED
[2018-10-07 08:07] VITALS: BP 170/78
[2018-10-07] MEDS: LOSARTAN POTASSIUM 100 MG TAB PO SCH (08:14)
[2018-10-07] MEDS: ASPIRIN 81 MG ENTERIC COATED PO SCH (08:14)
[2018-10-07] MEDS: DOXYCYCLINE 100MG/NS 100ML 100 ML IV SCH ×2 (08:14→20:30)
[2018-10-07] MEDS: AMLODIPINE BESYLATE 10 MG TAB PO SCH (08:15)
[2018-10-07] MEDS: PREDNISONE 20 MG TAB PO SCH (08:15)
[2018-10-07] MEDS: METOPROLOL TARTRATE 25 MG TAB PO SCH ×2 (08:15→21:00)
[2018-10-07] MEDS: THEOPHYLLINE 200 MG TABCR PO SCH (08:15)
[2018-10-07] MEDS: SERTRALINE HCL 50 MG TAB PO SCH (08:15)
[2018-10-07] MEDS: HYDROCHLOROTHIAZIDE 25 MG TAB PO SCH (08:15)
[2018-10-07] MEDS: LORAZEPAM 0.5 MG TAB PO PRN ×2 (08:47→21:00)
--- NOTE | 2018-10-07 12:00 | NUR ---
PT UP IN BED NO DISTRESS NOTED,DENIES PAIN,NO ANXIETY NOTED,
[2018-10-07 12:01] VITALS: BP 142/68
--- NOTE | 2018-10-07 14:00 | NUR ---
MS DEEPIKA GUEVARA HERE ,OK TO GABRIELLA LARA
[2018-10-07 16:21] VITALS: BP 104/57
--- NOTE | 2018-10-07 16:24 | NUR ---
PT IN BED RESTING QUIETLY NO DISTRESS NOTED.
--- NOTE | 2018-10-07 18:47 | NUR ---
PT IN BED RESTING NO DISTRESS NOTED,NO ANXIETY NOTED.
--- NOTE | 2018-10-07 19:10 | NUR ---
Bedside rounds completed with morning nurse. Pt alert to name. Lying in bed HOB 60 degrees. Denies pain or SOB at this time. No acute distress noted. Call parker within reach. Will continue to monitor.
[2018-10-07 20:00] VITALS: BP 133/64
--- NOTE | 2018-10-07 22:34 | Progress Note ---
DATE: 10/07/2018 Pulmonary Medicine Progress Note SUBJECTIVE: Ms. Brown was seen and examined at bedside. She continues to have very slow progress. Her shortness of breath is better. However, there is slightly less wheezing. She was able to get out to the toilet and come back, but she was very short of breath when returning to her bed and this was noted by nursing. The patient eats some amount of her food. REVIEW OF SYSTEMS: No headache. No GI bleed. OBJECTIVE: VITAL SIGNS: Afebrile, vital signs noted per the chart record. GENERAL: No acute distress. Alert and calm, in bed. HEENT: Normocephalic, atraumatic. NECK: Supple. Throat midline. LUNGS: Bilateral air entry, still mild wheezes, few rales. CARDIOVASCULAR: S1 and S2. No murmurs, rubs, or gallops. ABDOMEN: Soft, nontender. EXTREMITIES: No clubbing, no cyanosis, there is no edema. INTEGUMENT: No rash or purpura. IMPRESSION AND PLAN: 1. Chronic obstructive pulmonary disease with exacerbation. 2. Chronic respiratory failure, hypoxemic, on home oxygen. 3. Decreased functional endurance. 4. Coronary artery disease, status post stenting. 5. Depression. At this time, the steroid medicine is ongoing and we will consider decreasing it tomorrow. The patient remained on bronchodilators. Continue to follow up closely. The patient is on sitter as per Psychiatry and no issues. Follow up closely. MD BAO Murrieta/MAGUE /[id number]
[2018-10-08] VITALS: BP 174/84
[2018-10-08 00:20] VITALS: BP 174/84
[2018-10-08] MEDS: IPRATROPIUM BROMIDE 0.02% 2.5 ML NEB NEB SCH ×3 (03:00→11:02)
[2018-10-08] MEDS: ALBUTEROL SULF 0.083% NEB SOLN 3 ML NEB NEB SCH ×3 (03:00→11:02)
[2018-10-08 04:00] VITALS: BP 175/94
--- NOTE | 2018-10-08 07:11 | NUR ---
RECEIVED PATIENT RESTING IN BED. RESPIRATIONS EVEN AND UNLABORED, NO ACUTE DISTRESS NOTED. CALL LIGHT WITHIN REACH. BED IN THE LOWEST POSITION.
[2018-10-08 07:44] VITALS: BP 121/70
[2018-10-08 07:53] VITALS: BP 121/70
[2018-10-08] MEDS ORDERED: SERTRALINE HCL 50 MG TAB PO SCH (09:00)
[2018-10-08] MEDS: DOXYCYCLINE 100MG/NS 100ML 100 ML IV SCH (09:44)
[2018-10-08] MEDS: ASPIRIN 81 MG ENTERIC COATED PO SCH (09:44)
[2018-10-08] MEDS: HYDROCHLOROTHIAZIDE 25 MG TAB PO SCH (09:45)
[2018-10-08] MEDS: THEOPHYLLINE 200 MG TABCR PO SCH (09:45)
[2018-10-08] MEDS: AMLODIPINE BESYLATE 10 MG TAB PO SCH (09:45)
[2018-10-08] MEDS: METOPROLOL TARTRATE 25 MG TAB PO SCH (09:45)
[2018-10-08] MEDS: PREDNISONE 20 MG TAB PO SCH (09:45)
[2018-10-08] MEDS: LOSARTAN POTASSIUM 100 MG TAB PO SCH (09:45)
--- NOTE | 2018-10-08 10:50 | NUR ---
EDUCATED ABOUT IMM, SIGNED, FILED IN CHART, WITH COPY LEFT WITH FAMILY AT BEDSIDE.
--- NOTE | 2018-10-08 10:55 | Progress Note ---
DATE: 10/07/2018 Psychiatric Progress Note SUBJECTIVE: The patient evaluated and events noted. The patient is in the room. She is with sitter. She is alert, awake, and oriented to situation. She reports feeling better and less depressed. She denies any suicidal ideation. She denies any hallucination. She denies feeling hopeless or helpless. She denies any problem with sleep or appetite. She denies any side effects from medication. ASSESSMENT: Major depressive disorder, recurrent, moderate to severe. PLAN: 1. Increase Zoloft to 50 mg p.o. daily. 2. Continue Ativan p.r.n. p.o. 3. Continue Ambien p.r.n. at bedtime. 4. Monitor for mood. 5. Discussed with nursing staff. 6. Discontinue sitter. 7. Supportive therapy. Dictated by Lisa Yin PA-C Gunnar Lowe MD QTV/MODL /[id number]
[2018-10-08] MEDS ORDERED: PULMICORT2 M1 INH (10:56)
[2018-10-08] MEDS ORDERED: GUAIFENESI100 MG/5 M PO (10:56)
[2018-10-08] MEDS ORDERED: LOPRESSOR25 MG PO (10:56)
[2018-10-08] MEDS ORDERED: THEOPHYLLINE A200 MG PO (10:56)
[2018-10-08] MEDS ORDERED: ESIDRIX25 MG PO (10:56)
[2018-10-08] MEDS ORDERED: ACETAMINOPHEN325 M1 PO (10:56)
[2018-10-08] MEDS ORDERED: IPRATROPIU0.2 MG/1 M NEB (10:56)
[2018-10-08 11:23] VITALS: BP 140/63
[2018-10-08] MEDS ORDERED: PREDNISONE10 MG PO (13:21)
[2018-10-08] MEDS ORDERED: NAC600 MG PO (13:21)
--- NOTE | 2018-10-08 14:15 | NUR ---
SPOKE TO INHALATION THERAPY TEACHER IN REGARDS TO PATIENTS NEED FOR WHEN SHE IS DISCHARGED, PER INHALATION THERAPY TEACHER SHE HAS ALREADY SPOKEN TO PATIENT.
--- NOTE | 2018-10-08 14:34 | NUR ---
RECEIVED DC ORDER FROM MD. PATIENT IS IN STABLE CONDITION. NO ACUTE DISTRESS NOTED. IV LINE TO LEFT FOREARM DCD WITH TIP INTACT, PRESSURE APPLIED TO SITE, NO BLEEDING NOTED. DISCHARGE FOLDER AND PERSONAL ITEMS ON HAND. PATIENT ACCOMPANIED TO TAXI VIA WHEELCHAIR BY STAFF.
--- NOTE | 2018-10-09 01:21 | Progress Note ---
DATE: 10/08/2018 Pulmonary Medicine Progress Note. SUBJECTIVE: Ms. Brown was seen and examined at bedside. She continues to have slow progress. Her breathing is better. . She is walking, although mildly weak. REVIEW OF SYSTEMS: No GI bleed. OBJECTIVE: VITAL SIGNS: Afebrile, vital signs noted per the chart record. GENERAL: No acute distress. Alert. HEENT: Normocephalic, atraumatic. NECK: Supple. LUNGS: Bilateral air entry. CARDIOVASCULAR: S1 and S2. ABDOMEN: Soft. EXTREMITIES: No edema. INTEGUMENT: No rash. IMPRESSION AND PLAN: 1. Chronic obstructive pulmonary disease with exacerbation. 2. Depression. 3. Chronic hypoxemic respiratory failure. 4. Debility/weakness. Pulmonary rehab to be resumed. The patient can be discharged today. I wrote some scripts for her. The patient is to continue steroid wean. Continue bronchodilators. MD BAO Murrieta/MAGUE /[id number]
--- NOTE | 2018-10-09 09:52 | Discharge Summary ---
HISTORY: Ms. Brown is unfortunate 73-year-old woman with an end-stage lung disease, who presented to the emergency room on the 01 of October with complaints of cough and shortness of breath with the phrase that she "thought she had a cold." She had visit with Dr. Damon in the office. Initial findings documented exacerbation of severe end-stage COPD, possible bronchitis, or pneumonia. With known coronary artery disease, her cardiac enzymes were normal. She did not express any chest discomfort. Urinalysis suggested possible urinary tract infection. However, repeat urinalysis better quality shows 0 to 5 red cells, 0 to 5 white cells, and still some moderate epithelial cells, probably contaminated. She was treated with broad-spectrum antibiotics, bronchodilators, and prednisone. She made slow and gradual progress with oxygen support for hypoxia. Continue steroids and bronchodilators. She expressed some depression and suicidal ideation, was seen by Dr. Lowe. Further discussions, she recanted these ideas and psychiatric sitter was discontinued. She reports she has no family, no friends, and no hindu support. She lives alone. Today, she feels stable enough to be discharged home. We will continue steroid taper under the supervision of Dr. Morris. She will follow up with him in the office and Dr. Damon on a regular basis. DISCHARGE DIAGNOSES: 1. Exacerbation of end-stage lung disease. 2. Bronchitis. 3. Coronary artery disease, clinically stable. 4. Doubt urinary tract infection. MD SONALI Villalobos/MAGUE /[id number] cc: MD Archie Oliveira MD Salah U Qureshi, MD
== END 2018-10-08 14:44 | disposition home or self-care (01) | DRG 190 ==
LOC: ER 14:25 → ERHOLD 19:46 → IMCU 23:29 → OBSVTOIN 10-04 14:29 → MED/SURG3 10-04 15:40
PROVIDERS: ADMIT Internal Medicine Cardiovascular Disease; ATTEND Internal Medicine Cardiovascular Disease
DX: J44.1 Chronic obstructive pulmonary disease with (acute) exacerbation (principal); J96.20 Acute and chronic respiratory failure, unspecified whether with hypoxia or hypercapnia; J18.9 Pneumonia, unspecified organism; F33.2 Major depressive disorder, recurrent severe without psychotic features; C18.9 Malignant neoplasm of colon, unspecified; R09.02 Hypoxemia; I25.10 Atherosclerotic heart disease of native coronary artery without angina pectoris; J44.0 Chronic obstructive pulmonary disease with (acute) lower respiratory infection; F41.9 Anxiety disorder, unspecified; Z79.899 Other long term (current) drug therapy; Z87.891 Personal history of nicotine dependence
CPT/HCPCS: 36415; 71045; 80053; 80061; 81001; 82550; 82553; 83036; 83735; 83880; 84100; 84443; 84484; 84550; 85025; 85610; 85730; 87086; 87186; 93005; 93306; 94640; 99284; G0378; J0360; J2930; J7050; J7512

== ENCOUNTER 2018-12-02 11:49 | Emergency (ER) | payer MEDICARE ==
[~2018-12-02] VITALS: Ht 170.2 cm; Wt 55.8 kg
[~2018-12-02 11:49] MED LIST changes: +ACETAMINOPHEN325 M1 PO; +ESIDRIX25 MG PO; +GUAIFENESI100 MG/5 M PO; +NAC600 MG PO; +PULMICORT2 M1 INH; +THEOPHYLLINE A200 MG PO
--- OUTSIDE RECORDS SUMMARY | 2018-12-02 11:52 | XMS REPORT | Clinical Summary ---
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 08/04/2018 Initial consult Transplant Jose Luna MD Centrilobular emphysema (HCC) 08/04/2018 Orders Only Transplant Hudson Mayen RN Lung Transplant Pre-evaluation 07/26/2018 Telephone Transplant Camille Mcleod 07/23/2018 Abstract Transplant after 12/01/2017 Family History Medical History Relation Name Comments [...] Taken Vital Sign Reading 08/04/2018 12:36 PM LACE CUTTER Blood Pressure 131/69 08/04/2018 3:54 PM LACE CUTTER Pulse 99 08/04/2018 12:36 PM LACE CUTTER Temperature 37 C (98.6 F) 08/04/2018 12:36 PM LACE CUTTER Respiratory Rate 20 08/04/2018 3:54 PM LACE CUTTER Oxygen Saturation 92% - Inhaled Oxygen - Concentration 08/04/2018 12:36 PM LACE CUTTER Weight 62.1 kg (136 lb 14.4 oz) 08/04/2018 12:36 PM LACE CUTTER Height 170.2 cm (5' 7") 08/04/2018 12:36 PM LACE CUTTER Body Mass Index 21.44 Plan of Treatment Not on file Implants Device Identifier Shelf Expiration Date Model / Serial / Lot Implanted Type Area Manufactur er 11/12/2015 [id number] / / [id number] [employer] App [employer] Implanted: Qty: 1 on 09/13/2014 SCIENTIFIC Procedures Comments Procedure Name Priority Date/Time Associated Diagnosis PULMONARY FUNCTION - SCAN 08/12/2018 11:10 AM LACE CUTTER 6 MINUTE WALK(FOR LUNG Routine 08/04/2018 Centrilobular emphysema TRANSPLANT ONLY) 3:28 PM LACE CUTTER ([facility]) DLCO (SINGLE BREATH Routine 08/04/2018 Centrilobular emphysema DIFFUSION) 3:28 PM LACE CUTTER ([facility]) LUNG VOLUMES Routine 08/04/2018 Centrilobular emphysema 3:28 PM LACE CUTTER ([facility]) CT CHEST WITHOUT IV Routine 08/04/2018 Centrilobular emphysema CONTRAST 2:41 PM LACE CUTTER ([facility]) after 12/01/2017 Results * PULMONARY FUNCTION - SCAN (08/12/2018 11:10 AM LACE CUTTER) Narrative Performed At * 6 MINUTE WALK(FOR LUNG TRANSPLANT ONLY) (08/04/2018 3:28 PM LACE CUTTER) Narrative Performed At Tejinder Navas, [employer], [facility] 08/04/20184:20 PM [facility] PFT CHARTING REPORT Infection Control/Hand Hygiene procedures followed throughout the encounter with patient: Yes Patient Identification Method: Patient name verified on armband, and Medical record on armband, Is the order complete?: Yes Account ID#: [id number] Patient Name: King Brown Birthdate: 1945 Age: [...] outcome. * Lung volumes (08/04/2018 3:28 PM LACE CUTTER) Narrative Performed At Tejinder Navas RRT, [facility] 08/04/20184:20 PM [facility] PFT CHARTING REPORT Infection Control/Hand Hygiene procedures followed throughout the encounter with patient: Yes Patient Identification Method: Patient name verified on armband, and Medical record on armband, Is the order complete?: Yes Account ID#: [id number] Patient Name: King Brown Birthdate: 1945 Age: [...] DLCO (single breath diffusion) (08/04/2018 3:28 PM LACE CUTTER) [facility] 08/04/20184:20 PM [facility] PFT CHARTING REPORT Infection Control/Hand Hygiene procedures followed throughout the encounter with patient: Yes Patient Identification Method: Patient name verified on armband, and Medical record on armband, Is the order complete?: Yes Account ID#: [id number] Patient Name: King Brown Birthdate: 1945 Age: [...] chest without IV contrast (08/04/2018 2:41 PM LACE CUTTER) Specimen Narrative Performed At FINAL REPORT [facility] CT of the chest, without contrast Clinical [...] There is advanced vascular calcification. There is irbl-hm-umcxthdx emphysema. Mild bronchial wall thickening is noted, [...] Partially imaged upper abdomen is unremarkable. Impression: Bpyq-nr-cekzpebj emphysema. Mild bronchial wall thickening. A few centrilobular micronodules in the right lower lobe likely reflect infectious/inflammatory small airways disease. Atherosclerotic disease. Small hiatal hernia. Signed: Carl Avendano MD Report Verified Date/Time:08/04/2018 16:26:58 Reading Location: [facility] C0X [facility] Consult Reading Room Procedure Note Interface, External Ris In - 08/04/2018 4:29 PM LACE CUTTER FINAL REPORT CT of the chest, without [...] There is advanced vascular calcification. There is azaf-bt-lwukrwvi emphysema. Mild bronchial wall thickening is noted, [...] Partially imaged upper abdomen is unremarkable. Impression: Wpqh-qm-wsvyjurm emphysema. Mild bronchial wall thickening. A few centrilobular micronodules in the right lower lobe likely reflect infectious/inflammatory small airways disease. Atherosclerotic disease. Small hiatal hernia. Signed: Carl Avendano MD Report Verified Date/Time: 08/04/2018 16:26:58 Reading Location: [address] Consult Reading Room Performing Organization Address City/State/Zipcode Phone Number GE RIS after 12/01/2017 Insurance Payer Benefit Subscriber ID Type Phone Address Plan / Group MEDICARE MEDICARE A xxxxxxxxxxx Medicare B Advance Directives For more information, please contact: [facility] [address] [place] [id number] Date Inactivated Comments Code Status Date Activated 09/13/2014 2:35 PM Full Code 09/13/2014 7:00 AM This code status was determined by: Patient
--- OUTSIDE RECORDS SUMMARY | 2018-12-02 11:52 | XMS REPORT | Clinical Summary ---
Author Author [facility] Address Unknown Phone Unavailable Care Team Providers Care Clerical Receptionist Name Role Phone Cam Crenshaw MD PCP [...] VACCINE AGE 65 AND OVER INFLUENZA VACCINE 02/17/2019 Results Not on fileafter 12/01/2017 Insurance Payer Benefit Subscriber ID Type Phone Address Plan / Group MEDICARE MEDICARE xxxxxxxxxx Medicare [place], [place] PART A AND B Advance Directives Patient has advance care planning documents on file. For more information, rohini gallagher contact: Flaquito Alegre [address] [place] [address]
[2018-12-02] MEDS ORDERED: METHYLPREDNISOLONE SOD SUCC 125 MG/2ML VIAL IV NR (12:00)
[2018-12-02] MEDS ORDERED: ALBUTEROL/IPRATROPIUM 3 ML NEB ONE (12:31)
[2018-12-02] MEDS: ALBUTEROL/IPRATROPIUM 3 ML NEB NEB PRN ×2 (12:33→13:00)
--- NOTE | 2018-12-02 12:34 | Diagnostic Imaging Report ---
Examination: Single AP view of the chest. COMPARISON: 10/01/2018 INDICATION: Shortness of breath, wheezing DISCUSSION: Hyperinflated lungs with unchanged left apical pleural calcifications. No focal airspace consolidation, pleural effusion, or pneumothorax. Atherosclerotic calcification of the thoracic aorta. Normal heart size. No pulmonary edema. Coronary artery stent. No acute osseous abnormality. Probable posttraumatic deformity of the left glenohumeral joint and humeral head partially visualized. IMPRESSION: No acute cardiopulmonary abnormality. Pulmonary hyperinflation in keeping with COPD. Signed by: Dr. Alon Munoz M.D. on 12/02/2018 12:31 PM
[2018-12-02] MEDS ORDERED: PREDNISONE10 MG PO (13:13)
[2018-12-02] MEDS ORDERED: PREDNISONE20 MG PO (13:13)
== END 2018-12-02 15:53 | disposition home or self-care (01) ==
LOC: ER 11:49
DX: R06.09 Other forms of dyspnea (principal); J44.1 Chronic obstructive pulmonary disease with (acute) exacerbation
CPT/HCPCS: 71045; 94640 ×2; 94760; 99284; J2930